=== PATIENT | female | born 1970 | race Caucasian/White ===

== ENCOUNTER 2021-03-04 18:20 | Emergency (ER) | payer MEDICARE, MEDICAID, SELFPAY ==
[2021-03-04 18:45] VITALS: BP 133/78; PULSE 84; RESP 20; TEMP 36.6; O2SAT 94
[2021-03-04] MEDS: SODIUM CHLORIDE 0.9% IV 1,000 ML 999 ML IV CONT (19:27)
[2021-03-04 19:31] LABS: Basophils Absolute Auto 0.15 K/mm3 (0.00-0.10); Basophils Percent Auto 1.9 % (0.0-1.0); Eosinophils Absolute Auto 0.24 K/mm3 (0.02-0.50); Eosinophils Percent Auto 3.1 % (1.0-6.0); Hematocrit 39.7 % (35.0-49.0); Hemoglobin 14.1 g/dL (12.0-15.0); Immature Granulocyte Absolute 0.02 K/mm3 (0.00-0.00); Immature Granulocyte Percent A 0.3 % (0.0-0.0); Lymphocytes Absolute Auto 3.04 K/mm3 (1.10-4.50); Lymphocytes Percent Auto 38.8 % (18.0-42.0); Mean Corpuscular HGB Conc 35.5 g/dL (32.0-36.0); Mean Corpuscular Hemoglobin 37.9 pg (27.0-31.0); Mean Corpuscular Volume 106.7 fL (78.0-102.0); Monocytes Absolute Auto 0.77 K/mm3 (0.10-0.90); Monocytes Percent Auto 9.8 % (2.0-11.0); Neutrophils Absolute Auto 3.6 K/mm3 (1.7-7.2); Neutrophils Percent Auto 46.1 % (50.0-70.0); Platelet Count Result 241 K/mm3 (150-420); Red Blood Count 3.72 M/mm3 (4.20-5.40); Red Cell Distribution Width 11.4 % (11.6-14.4); White Blood Count 7.8 K/mm3 (4.8-10.8)
[2021-03-04 19:36] LABS: Add Urine Microscopic? NO; Appearance Urine Clear (Clear); Bilirubin Urine Negative (Negative); Blood Urine Negative (Negative); Color Urine Light Yellow (Yellow); Glucose Urine UA Negative (Negative); Ketones Urine Negative (Negative); Leukocyte Esterase Ur Negative (Negative); Nitrate Urine Negative (Negative); Protein Urine Negative (Negative); Specific Grav Ur <= 1.005 (1.010-1.020); Urobilinogen Urine 0.2 mg/dL (0.2-1.0); pH Urine 5.5 (5.0-8.0)
[2021-03-04 19:40] LABS: Alanine Aminotransferase 110 U/L (14-59); Albumin Level 3.5 g/dL (3.4-5.0); Alkaline Phosphatase 124 U/L (46-116); Amphetamine Screen Urine Negative (Negative); Anion Gap 6 mmol/L (8-16); Aspartate Amino Transferase 173 U/L (15-37); Barbiturate Screen Urine Negative (Negative); Benzodiazepines Screen Urine Negative (Negative); Bilirubin,Total 0.3 mg/dL (0.00-1.00); Blood Urea Nitrogen 9 mg/dL (7-18); Cannabinoid Screen Urine Negative (Negative); Carbon Dioxide 29 mmol/L (21-32); Chloride 103 mmol/L (98-108); Cocaine Screen Urine Negative (Negative); Estimated CRCL calculation 79 ml/min; Estimated Glomerular Filt Rate > 60; Glucose 145 mg/dL (70-99); Methadone Screen Urine Negative (Negative); Opiate Screen Urine Positive (Negative); Osmolality Calculated 287 mOsm/kg (285-295); Phencyclidine Screen Urine Negative (Negative); Potassium 4.2 mmol/L (3.5-5.1); Sodium 138 mmol/L (136-145); Total Protein 6.9 g/dL (6.4-8.2)
--- NOTE | 2021-03-04 19:45 | ED.DIZZY ---
HPI - Dizziness General Chief Complaint: Unspecified Stated Complaint: low bp Source: patient Mode of arrival: ambulatory History of Present Illness HPI Narrative: This is a 50-year-old female that presents with sensation of having lower blood pressure, and has a mild headache with dizziness for the last couple of days with no nausea vomiting no chest pain no shortness of breath no fever or chills. Patient states that she does consume alcohol and has been using opioids. There is no dysuria no hematuria no abdominal pain no flank pain. MD elicited complaint: dizziness Onset (ago): day(s) Timing: gradual onset Severity: mild Description: sense of movement Related Data Home Medications Medication Instructions Recorded Confirmed albuterol sulfate 2 puff INHALATION BID 03/04/21 03/04/21 atenolol 50 mg PO DAILY 03/04/21 03/04/21 citalopram 20 mg PO DAILY 03/04/21 03/04/21 furosemide 40 mg PO DAILY 03/04/21 03/04/21 hydrocodone-acetaminophen 1 tablet PO BID 03/04/21 03/04/21 ipratropium-albuterol 3 ml INHALATION BID 03/04/21 03/04/21 levothyroxine 75 mcg PO DAILY 03/04/21 03/04/21 potassium chloride 20 meq PO DAILY 03/04/21 03/04/21 Allergies Allergy/AdvReac Type Severity Reaction Status Date / Time sumatriptan [From Imitrex] AdvReac Unknown Verified 03/04/21 19:22 Review of Systems Review of Systems: All systems reviewed & are unremarkable except as noted in HPI and below PMFSH Past Medical History Medical History Patient denies medical problems Exam Const: General: no acute distress and alert Orientation/consciousness: patient oriented x3 HENMT: Head: normal to inspection Eyes: Conjunctivae: conjunctivae normal Pupils: Equal, round and reactive pupils present Neck: Neck: normal visual inspection, no lymphadenopathy and no meningeal signs Chest: Chest palpation & inspection: normal inspection of the chest Resp: Effort & Inspection: normal respiratory effort Auscultation: clear to auscultation bilaterally GI: GI Palp: Yes Soft to palpation Percussion: Yes normal to percussion Urinary Catheter: Urinary Catheter: patent and draining and urine clear Back/Spine/Pelvis: Back: no CVA tenderness Skin: General skin exam: normal color Rashes: no rashes Neuro: General: patient oriented x3 and moves all extremities Course Course Emergency Course: reviewed labs with patient, advised to take Tylenol or Motrin for her headache, patient received IV fluids and advised follow-up with her primary care physician. Vital Signs Vital signs: Vital Signs Temperature 36.6 C 03/04/21 18:45 Pulse Rate 84 03/04/21 18:45 Respiratory Rate 20 03/04/21 18:45 Blood Pressure 133/78 03/04/21 18:45 Pulse Oximetry 94 03/04/21 18:45 Temperature 36.6 C 03/04/21 18:45 Pulse Rate 84 03/04/21 18:45 Respiratory Rate 20 03/04/21 18:45 Blood Pressure 133/78 03/04/21 18:45 Pulse Oximetry 94 03/04/21 18:45 MDM - Dizziness Lab Data Result diagrams: 03/04/21 19:23 03/04/21 19:23 Labs: Lab Results 03/04/21 03/04/21 03/04/21 Range/Units 19:23 19:23 19:23 WBC 7.8 (4.8-10.8) K/mm3 RBC 3.72 L (4.20-5.40) M/mm3 Hgb 14.1 (12.0-15.0) g/dL Hct 39.7 (35.0-49.0) % MCV 106.7 H (78.0-102.0) fL MCH 37.9 H (27.0-31.0) pg MCHC 35.5 (32.0-36.0) g/dL RDW 11.4 L (11.6-14.4) % Plt Count 241 (150-420) K/mm3 MPV 9.0 L (9.2-11.8) fl Immature Gran % (Auto) 0.3 H (0.0-0.0) % Neut % (Auto) 46.1 L (50.0-70.0) % Lymph % (Auto) 38.8 (18.0-42.0) % Osborne % (Auto) 9.8 (2.0-11.0) % Eos % (Auto) 3.1 (1.0-6.0) % Baso % (Auto) 1.9 H (0.0-1.0) % Lymph # (Auto) 3.04 (1.10-4.50) K/mm3 Osborne # (Auto) 0.77 (0.10-0.90) K/mm3 Eos # (Auto) 0.24 (0.02-0.50) K/mm3 Baso # (Auto) 0.15 H (0.00-0.10) K/mm3 Abs Immat Gran (auto) 0.02 H (0.00-0.00)
[2021-03-04 19:55] VITALS: BP 130/74; PULSE 78; RESP 18; TEMP 36.6; O2SAT 98
== END 2021-03-04 20:03 | disposition home or self-care (01) ==
PROVIDERS: Emergency Provider Emergency Medicine; PCP Internal Medicine
DX: E86.0 Dehydration (principal); Z79.899 Other long term (current) drug therapy
CPT/HCPCS: 36415; 80053; 80307; 81003; 85025; 96360; 99282; 99283; J7030

== ENCOUNTER 2021-03-07 13:15 | Emergency (ER) | payer MEDICARE, MEDICAID, SELFPAY ==
--- NOTE | 2021-03-07 13:31 | ED.WEAKNESS ---
HPI - Weakness General Chief complaint: Nausea/Vomiting/Diarrhea Stated complaint: droggy Source: patient and RN notes reviewed Mode of arrival: ambulatory Limitations: no limitations History of Present Illness HPI Narrative: patient was here 2 days ago and feeling similar. She received a L of IV fluids. She was recently diagnosed with bronchitis and was put on a Z-Lv. Now she has diarrhea. She has some generalized aches and pains. She has been vaccinated for COVID. Complaint: generalized weakness Onset (ago): day(s) (3) Duration: constant Location: generalized Migration: none Severity: moderate Associated symptoms: other (diarrhea) Related Data Home Medications Medication Instructions Recorded Confirmed albuterol sulfate 2 puff INHALATION BID 03/04/21 03/07/21 atenolol 50 mg PO DAILY 03/04/21 03/07/21 citalopram 20 mg PO DAILY 03/04/21 03/07/21 furosemide 40 mg PO DAILY 03/04/21 03/07/21 hydrocodone-acetaminophen 1 tablet PO BID 03/04/21 03/07/21 ipratropium-albuterol 3 ml INHALATION BID 03/04/21 03/07/21 levothyroxine 75 mcg PO DAILY 03/04/21 03/07/21 potassium chloride 20 meq PO DAILY 03/04/21 03/07/21 insulin glargine [Basaglar KwikPen 25 unit SUBCUT HS 03/07/21 03/07/21 U-100 Insulin] Allergies Allergy/AdvReac Type Severity Reaction Status Date / Time sumatriptan [From Imitrex] AdvReac Unknown Verified 03/07/21 14:15 Review of Systems Review of Systems: All systems reviewed & are unremarkable except as noted in HPI and below Constitutional: Constitutional: Denies chills and Denies fever(s) Respiratory: Respiratory: Denies dyspnea Gastrointestinal: Gastrointestinal: Denies nausea and Denies vomiting Musculoskeletal: Musculoskeletal: Denies muscle cramps PMFSH Past Medical History Medical History (Updated 03/07/21 @ 15:29 by Tae Kennedy MD) COPD (chronic obstructive pulmonary disease) Depression Hx of migraines Hypertension Hypothyroidism Type 2 diabetes mellitus Surgical History Surgical History (Updated 03/07/21 @ 14:17 by Tae Kennedy MD) History of tonsillectomy Social History Social History (Updated 03/07/21 @ 14:23 by Tae Kennedy MD) Alcohol intake: current Substance use: current Substance use type: opiates Exam Const: General: healthy appearing, no acute distress and intoxicated appearing Nutritional Appearance: well nourished Orientation/consciousness: patient oriented x3 Other: female nurse in room during examination. HENMT: Head: normal to inspection Ears: external ears normal Face and sinus: normal facial exam Mouth: Yes moist mucous membranes Eyes: Conjunctivae: conjunctivae normal Pupils: Equal, round and reactive pupils present EOM: EOMs intact bilaterally Neck: Neck: normal visual inspection and no lymphadenopathy Resp: Effort & Inspection: normal respiratory effort Auscultation: clear to auscultation bilaterally Cardio: Rate: regular rate Rhythm: regular rhythm GI: Inspection: normal to inspection GI Palp: No abdominal tenderness, Yes Soft to palpation, No Guarding due to palpation present (GI) and Yes Hepatomegaly present (7 cm below the costal margin) Auscultation: normal bowel sounds Back/Spine/Pelvis: Cervical Spine: cervical ROM normal Thoracic/Lumbar Spine: thoraco-lumbar ROM normal Skin: General skin exam: normal color Rashes: no rashes Neuro: General: patient oriented x3, moves all extremities, no meningeal signs and no focal motor deficits Speech: normal speech Gait exam (Neuro): Normal gait present Extrem: General: normal to inspection and no clubbing, cyanosis or edema Psych: Appearance: grossly normal and well kempt Mental Status: mental status grossly normal Affect: normal affect Attitude: cooperative Thought content: Yes Normal thought content present Course Course Emergency Course: Discussion with patient regarding her results. There is no evidence of dehydration. Her alcohol level is elevated.
[2021-03-07 13:55] VITALS: BP 112/75; PULSE 86; RESP 20; TEMP 36.7; O2SAT 95
[2021-03-07 14:45] LABS: Add Urine Microscopic? NO; Appearance Urine Clear (Clear); Basophils Absolute Auto 0.13 K/mm3 (0.00-0.10); Basophils Percent Auto 1.9 % (0.0-1.0); Bilirubin Urine Negative (Negative); Blood Urine Negative (Negative); Color Urine Light Yellow (Yellow); Eosinophils Absolute Auto 0.23 K/mm3 (0.02-0.50); Eosinophils Percent Auto 3.3 % (1.0-6.0); Glucose Urine UA Negative (Negative); Hematocrit 39.5 % (35.0-49.0); Hemoglobin 13.7 g/dL (12.0-15.0); Immature Granulocyte Absolute 0.01 K/mm3 (0.00-0.00); Immature Granulocyte Percent A 0.1 % (0.0-0.0); Ketones Urine Negative (Negative); Leukocyte Esterase Ur Negative LEU/UL (Negative); Lymphocytes Absolute Auto 2.76 K/mm3 (1.10-4.50); Lymphocytes Percent Auto 39.7 % (18.0-42.0); Mean Corpuscular HGB Conc 34.7 g/dL (32.0-36.0); Mean Corpuscular Volume 106.8 fL (78.0-102.0); Mean Platelet Volume 8.9 fl (9.2-11.8); Monocytes Absolute Auto 0.67 K/mm3 (0.10-0.90); Monocytes Percent Auto 9.6 % (2.0-11.0); Neutrophils Absolute Auto 3.2 K/mm3 (1.7-7.2); Neutrophils Percent Auto 45.4 % (50.0-70.0); Nitrate Urine Negative (Negative); Platelet Count Result 199 K/mm3 (150-420); Protein Urine Negative (Negative); Red Cell Distribution Width 11.6 % (11.6-14.4); Specific Grav Ur <= 1.005 (1.010-1.020); Urobilinogen Urine 0.2 mg/dL (0.2-1.0); pH Urine 5.5 (5.0-8.0)
[2021-03-07 15:02] LABS: CRP < 0.2 mg/dL (0.0-0.9); Ethanol 218 mg/dL (0-6)
[2021-03-07 15:09] LABS: Albumin Level 3.3 g/dL (3.4-5.0); Alkaline Phosphatase 150 U/L (46-116); Anion Gap 7 mmol/L (8-16); Bilirubin,Total 0.2 mg/dL (0.00-1.00); Blood Urea Nitrogen 8 mg/dL (7-18); Calcium 8.7 mg/dL (8.5-10.1); Carbon Dioxide 27 mmol/L (21-32); Chloride 106 mmol/L (98-108); Estimated CRCL calculation 75 ml/min; Estimated Glomerular Filt Rate > 60; Osmolality Calculated 290 mOsm/kg (285-295); Potassium 3.9 mmol/L (3.5-5.1); Sodium 140 mmol/L (136-145); Thyroid Stimulating Hormone 1.78 uIU/mL (0.36-3.74); Total Protein 6.5 g/dL (6.4-8.2)
[2021-03-07 15:14] LABS: Alanine Aminotransferase 166 U/L (14-59); Aspartate Amino Transferase 225 U/L (15-37)
[2021-03-07 15:15] LABS: Glucose 143 mg/dL (70-99)
[2021-03-07 16:08] VITALS: BP 126/79; PULSE 80; RESP 20; TEMP 36.7; O2SAT 94
== END 2021-03-07 15:45 | disposition home or self-care (01) ==
PROVIDERS: Emergency Provider Emergency Medicine; PCP Internal Medicine
DX: F10.10 Alcohol abuse, uncomplicated (principal); R16.0 Hepatomegaly, not elsewhere classified; J44.9 Chronic obstructive pulmonary disease, unspecified; I10 Essential (primary) hypertension; E03.9 Hypothyroidism, unspecified; E11.9 Type 2 diabetes mellitus without complications; Z79.899 Other long term (current) drug therapy
CPT/HCPCS: 36415; 80053; 80307; 81003; 84443; 85025; 86140; 99282; 99283

== ENCOUNTER 2024-08-06 02:57 | Emergency (ER) | payer MEDICARE, SELFPAY ==
[2024-08-06] VITALS (13 sets, daily range): BP systolic 168–177; BP diastolic 91–96; PULSE 116–141; RESP 18–25; TEMP 35.7–37.1; O2SAT 90–92
--- NOTE | ~2024-08-06 | XR_ITS ---
EXAMINATION: XR chest 1V portable 08/06/2024 03:21 INDICATION: Shortness of breath PROCEDURE: AP portable chest COMPARISON: No prior studies for comparison. FINDINGS: The lungs are clear. The cardiomediastinal silhouette is within normal limits. There are no pleural effusions. There is no pneumothorax suspected. IMPRESSION: 1: NO ACUTE CARDIOPULMONARY DISEASE. Reviewed, dictated and finalized at location A. ER EDUCATION INSTRUCTOR
--- OUTSIDE RECORDS SUMMARY | 2024-08-06 02:58 | XMS_ITS | Encounter Summary ---
Author Organization [facility] Address [address] [place] [address] Phone Care Team Providers Care Insurance Underwriting Assistant Name Role Phone Mukesh Rodriguez MD Primary Care Provider Kori Garcia RN Unavailable Neetu Emanuel RN Unavailable [phone] Erwin Estrada RN Unavailable [phone] Encounter Details Date Type Department Care Team (Late st Contact Info) Description 09/20/2017 Orders Only [facility] ProviderMeli MD [address] [place] [id number] Social History Tobacco Use Types Packs/Day Years Used Date Smoking Tobacco: Former Smokeless Tobacco: Never Alcohol Use Standard Drinks/Week Comments Yes 4 (1 standard drink = 0.6 oz pur e alcohol) Comments No Sex and Gender Information Value Date Recorded Sex Assigned at Not on file Legal Sex Female 8:[address] SPECIALIST Gender Identity Not on file Sexual Orientation Not on file documented as of this encounter Plan of Treatment Not on file documented as of this encounter Procedures Procedure Name Priority Date/Time Associated Diagnosis Comments DISCHARGE LABORATORY CUMULATIVE REPORT 09/20/2017 12:00 AM CDT documented in this encounter Results * DISCHARGE LABORATORY CUMULATIVE REPORT (09/20/2017 12:00 AM CDT) Narrative 09/20/2017 12:00 AM CDT Ordered by an unspecified provider. us Historical Provider LAB BLOOD ORDERABLES Heather l Result documented in this encounter Visit Diagnoses Not on filedocumented in this encounter Additional Health Concerns Infection Onset Date Last Indicated Resolved Time MRSA Comment:06/24/18 Upon review an amended report stated the culture report did not belong to this patient due to a clerical error at the physician office. ArtemioAnne Walkertalya IP Neck 09/20/17 09/20/2017 09/20/2017 06/24/2018 4:[address] COVID: Suspected 02/16/2021 02/16/2021 02/16/2021 12:04 PM CDT COVID: Suspected 05/24/2021 05/24/2021 05/24/2021 10:[address] SPECIALIST COVID: Suspected 09/10/2021 09/10/2021 09/10/2021 12:[address] SPECIALIST COVID: Suspected 09/28/2021 09/28/2021 09/28/2021 2:01 PM CDT COVID: Suspected 03/03/2022 03/03/2022 03/03/2022 10:27 AM CDT COVID19 03/03/2022 03/03/2022 03/13/2022 3:05 AM CDT COVID: Recovered Comment:Added based on recent COVID infection. 03/13/2022 03/14/2022 07/11/2022 3:[address] documented as of this encounter Care Teams Insurance Underwriting Assistant Relationship Specialty Start Date End Date Mukesh Rodriguez MD PCP - General 10/05/16 Kori Garcia RN [address] [place] [address] Car Tracer 06/27/18 07/31/18 Neetu Emanuel RN [address] [place], [place] [id number] Car Tracer 05/03/21 05/28/21 Erwin Estrada RN [address] [place] [address] [address] [place] [address] Car Tracer 05/29/21 08/02/21 documented as of this encounter
--- OUTSIDE RECORDS SUMMARY | 2024-08-06 02:58 | XMS_ITS | Referral Summary ---
Author Organization [facility] Address [address] [place] [id number] Care Team Providers Care Patient Service Associate Name Role Phone Teo Joyner MD Primary Care Provider Allergies Active Allergy Reactions Criticality Noted Date Comments Sumatriptan Anaphylaxis,Other (S ee comments) High Reaction: Diff breathing, , Reaction: throat swelling, can't breathe, , Reaction: throat swelling, can't breathe, Medications ipratropium-albut Scotty (DUO-NEB) 0.5-2.5 mg/3 mL nebulizer solutionIndicatio ns:Chronic Obstructive Pulmonary Disease with Bronchospasms Take 3 mL by nebulization 4 (four) times a day as needed for wheezing or shortness of breath Dx of COPD J44.9 360 mL 11 05/29/20 21 Active losartan (COZAAR) 100 mg tablet Take 1 tablet (100 mg total) by mouth daily To lower blood pressure 90 tablet 3 09/20/19 22 Active naloxone (NARCAN) 4 mg/actuation spray,non-aerosol Administer 1 spray into affected nostril(s) as needed for opioid reversal or respiratory depression Call 911. Administer a single spray in one nostril. Repeat every 3 minutes as needed if no or minimal response. 1 each 12/20/19 23 Active blood glucose diagnostic (True Metrix Glucose Test Strip) stripIndications: Controlled type 2 diabetes mellitus without complication, unspecified whether long filler cigar roller machine insulin use (HCC) USE 1 DAILY 50 strip 2 04/18/20 23 Active albuterol HFA (PROVENTIL HFA,VENTOLIN HFA,PROAIR HFA) 90 mcg/actuation inhaler INHALE 2 PUFFS EVERY 6 HOURS NEEDED FOR WHEEZING 25.5 g 3 08/08/19 24 Active atenoloL (TENORMIN) 50 mg tablet TAKE ONE TABLET BY MOUTH DAILY 90 tablet 3 01/06/20 24 Active triamcinolone (KENALOG) 0.1 % creamIndications: Rash and nonspecific skin eruption Apply topically 3 (three) times a day for 10 days 28.4 g 01/06/20 24 Active mupirocin (BACTROBAN) 2 % ointment Apply topically 3 (three) times a day To sores on toes 22 g 1 01/20/20 24 Active ondansetron (ZOFRAN) 4 mg tablet TAKE ONE TABLET BY MOUTH EVERY EIGHT HOURS NEEDED FOR NAUSEA OR VOMITING 20 tablet 3 02/18/20 24 Active LANTUS 100 unit/mL (3 mL) pen for injection INJECT 25 UNITS UNDER THE SKIN DAILY 45 mL 4 02/18/20 24 Active PARoxetine (PAXIL) 20 mg tablet Take 1 tablet (20 mg total) by mouth every morning Note higher dose 90 tablet 3 04/07/20 24 Active furosemide (LASIX) 40 mg tablet Take 1 tablet (40 mg total) by mouth daily 90 tablet 3 04/07/20 24 Active potassium chloride ER 20 mEq CR tablet Take 1 tablet (20 mEq total) by mouth daily 90 tablet 3 04/07/20 24 Active levothyroxine (SYNTHROID) 75 mcg tablet Take 1 tablet (75 mcg total) by mouth daily 100 tablet 3 04/07/20 Active pen needle, diabetic (TRUEplus Pen Needle) 31 gauge x 5/16 needle Inject 1 pen needle under the skin daily 100 each 3 04/07/20 Active LORazepam (ATIVAN) 0.5 mg tablet Take 1 tablet (0.5 mg total) by mouth 2 (two) times a day as needed for anxiety Do not take w/ hydrocodone 10 tablet 04/07/20 Active HYDROcodone-aceta minophen (NORCO) 10-325 mg per tabletIndications :Pain Take 1 tablet by mouth every 6 (six) hours as needed for pain 100 tablet 07/02/20 24 025 Active Active Problems Problem Noted Date Diagnosed Date Lumbar spine pain 03/24/2022 Medicare annual wellness visit, subsequent 03/23 History of 2019 novel coronavirus disease (COVID -19) 03/23/2022 Tachycardia 05/25/2021 Acute exacerbation of chroni c obstructive pulmonary disease (COPD) 05/24/2021 Assessment & Plan (06/07/2021 10:38 AM DISTRIBUTION LINEMAN): Recently hospitalized Symptoms improved. See hospitalization assessment above Menopause 03/29/2021 Positive colorectal cancer s creening using DNA-based stool test 03/29/2021 Overview (03/29/2021): Added automatically from request for surgery [id number] History of colonic polyps 03/29/2021 Overview (03/29/2021): Added automatically from request for surgery [id number] Medicare annual wellness visit, subsequent 02/03 Epistaxis 10/29/2019 Assessment & Plan (10/29/2019 10:30 AM CDT): Augmentin with a meal twice daily for 7 days Nasal saline spray (Simply saline, Little Remedies, [place], [place]) 2 second sprays or 2 squeezes into each nostril while looking down over the sink, do not need to sniff in 3-4 times per day Humidifier next to bed Discussed holding the soft portion of the nose with head down for 10 minutes with any nosebleeding Nasal septal perforation 10/29/2019 Assessment & Plan (10/29/2019 2:26 PM CDT): Augmentin with a meal twice daily for 7 days Nasal saline spray (Simply saline, Little Remedies, [place], [place]) 2 second sprays or 2 squeezes into each nostril while looking down over the sink, do not need to sniff in 3-4 times per day Humidifier next to bed Hypertension associated with diabetes 09/16/2019 Moderate episode of recurrent major depressive d isorder 09/16/2019 Type 2 diabetes mellitus wit hout complication, with long-term current use of insulin ([facility]) 09/15/2019 Body mass index (BMI) of 21.0 to 21.9 in adult 0 09/20/2017 Assessment & Plan (09/20/2017 1:47 PM CDT): Recommended patient to continue to increase heart healthy diet with adequate fruits, vegetables, and plenty of water along with mild-moderate daily exercise as tolerated. Chronic obstructive pulmonary disease 09/15/2015 Overview (10/11/2016): COPD Assessment & Plan (09/20/2017 1:49 PM CDT): Covering for COPD exacerbation office today with doxycycline 100 mg twice daily for full 10 day course along with tapering corticosteroids for full 10 days. Nebulizer treatments recommended 3 times a day for the next few days then p.r.n. thereafter and Depo-Medrol injection was administered office today for quicker alleviation symptoms as well. Follow-up in a week and certainly sooner there is any concern regarding worsening or little improvement symptoms at that time we can consider obtaining chest x-ray looking in the other etiologies causing symptoms Alcohol-induced chronic pancreatitis (CMS/HCC) 0 08/02/2015 Overview (10/11/2016): Chronic pancreatitis due to chronic alcoholism Assessment & Plan (07/10/2017 12:47 PM DISTRIBUTION LINEMAN): Acute on chronic pancreatitis. Keep npo until pain is better, continue with pain control and ivf's Thiamine and monitor lft's (possible component of alcoholic hepatitis but normal bilirubin) Patient was told that she should not drink at all and consider AA Tobacco use disorder 11/21/2013 Overview (10/11/2016): TOBACCO USE DISORDER Asthma 11/21/2013 Overview (10/11/2016): ASTHMA NOS Depression 11/21/2013 Overview (10/12/2016): DEPRESSIVE DISORDER NEC Hypothyroidism 12/04/2012 Overview (10/11/2016): Hypothyroidism Pancreatitis 07/08/2012 Overview (06/29/2020): Pancreatitis Transaminitis Alcoholic liver disease Alcohol withdrawal syndrome without complication (CMS/HCC) Resolved Problems Problem Noted Date Diagnosed Date Resolved Date Hospitalization within last 30 days 05/31/2021 12/19/2022 Assessment & Plan (05/31/2021 2:49 PM DISTRIBUTION LINEMAN): Hospitalized for acute copd exacerbation Med rec reviewed Completed cefdinir and prednisone HRS kit at home F/u prn Colon polyp 04/19/2021 05/18/2021 Overview (04/19/2021): Added automatically from request for surgery [id number] Acute recurrent maxillary sinusitis 10/29/2019 12/19/2022 Assessment & Plan (10/29/2019 2:26 PM CDT): Augmentin with a meal twice daily for 7 days Nasal saline spray (Simply saline, Little Remedies, [place], [place]) 2 second sprays or 2 squeezes into each nostril while looking down over the sink, do not need to sniff in 3-4 times per day Humidifier next to bed Alcohol-induced acute pancre atitis without infection or necrosis 07/10/2017 03/17/2019 Assessment & Plan (07/10/2017 12:37 PM DISTRIBUTION LINEMAN): Recurrent, most likely again induced by alcohol. Supportive care Advance diet slowly when symptoms improve Nausea & vomiting 07/10/2017 01/28/2018 Assessment & Plan (07/10/2017 12:37 PM DISTRIBUTION LINEMAN): Antiemetics as needed Flu-like symptoms 07/10/2017 03/17/2019 Assessment & Plan (07/10/2017 12:46 PM DISTRIBUTION LINEMAN): Influenza negative but with joint pain, generalized pain, cough besides adbominal pain Acute bronchitis 07/08/2017 07/31/2017 Bronchospasm 07/08/2017 07/31/2017 Acute maxillary sinusitis 07/08/2017 Subcutaneous emphysema (CMS/HCC) 09/15/2015 07/31/2017 Overview (10/11/2016): Subcutaneous emphysema Impaired fasting glucose 08/02/2015 Overview (10/11/2016): Impaired fasting glycaemia Migraine 01/19/2014 09/15/2019 Overview (10/11/2016): MIGRNE UNSP WO NTRC MGRN Irritable bowel syndrome 12/02/2009 Overview (10/11/2016): Irritable bowel syndrome Immunizations Name Administration Dates Next Due Influenza, Quadrivalent, Vanessa l Culture-based MDCK, Preservative Free, Antibiotic Free, Intramuscular 05/24/2022 Influenza, Quadrivalent, Spl it, Preservative Free, Intradermal 08/02/2016 Influenza, Quadrivalent, Spl it, Preservative Free, Intramuscular 04/02/2023,04/20/2021,05/18/2020,05/09,04/19/2017,05/25/2014 Influenza, Split 07/29/2013,07/18/2012 Influenza, Trivalent, IM (MDV) 05/25/2014,2013 Influenza, Trivalent, Preser vative Free, Intramuscular 04/07/2024 Influenza, Unspecified 03/29/2021(Deferr ed: Patient Refused),06/08/2019,08/02/2016, 014 Pfizer SARS-CoV-2 Monovalent Vaccination (12+ Yrs) PURPLE 01/31/2021,01/30/2021,11/15/2020 Pneumococcal Conjugate PCV 13 04/30/2018 Tdap 10/22/2017 Social History Tobacco Use Types Packs/Day Years Used Date Smoking Tobacco: Every Day Cigarettes 0.5 32 Smokeless Tobacco: Never Tobacco Cessation:Ready to Q uit: Not Asked; Counseling Given: Not Answered Alcohol Use Standard Drinks/Week Comments Yes 4 (1 standard drink = 0.6 oz pur e alcohol) Social Connection and Isolat ion Panel [NHANES] Answer Date Recorded In a typical week, how many times do you talk on the phone with family, friends, or neighbors? More than three times a week 05/26/2021 How often do you get togethe r with friends or relatives? Once a week 05/26/2021 How often do you attend [facility] or nondenominational services? Never 05/26/2021 Do you belong to any clubs o r organizations such as yazidism groups, unions, fraternal or athletic groups, or school groups? No 05/26/2021 How often do you attend meet ings of the clubs or organizations you belong to? Never 05/26/2021 Are you , , di vorced, , never , or living with a partner? 05/26/2021 AUDIT-C Answer Date Recorded Q1: How often do you have a drink containing alcohol? 4 or more times a week 04/07/2024 Q2: How many drinks containi ng alcohol do you have on a typical day when you are drinking? 1 or 2 Q3: How often do you have si x or more drinks on one occasion? Never 04/07/2024 Overall Financial Resource Strain (CARDIA) Answe r Date Recorded How hard is it for you to pa y for the very basics like food, housing, medical care, and heating? Not hard at all 05/26/2021 PHQ-2 Answer Date Recorded PHQ-2 Total Score (If total score is 3 or more points, staff should administer the PHQ-9) 0 04/07/2024 Hunger Vital Sign Answer Date Recorded Within the past 12 months, y ou worried that your food would run out before you got the money to buy more. Never true 05/26/20 21 Within the past 12 months, t he food you bought just didn't last and you didn't have money to get more. Never true 05/26/2021 PRAPARE - Transportation Answer Date Re corded In the past 12 months, has l ack of transportation kept you from medical appointments or from getting medications? No 05/08 In the past 12 months, has l ack of transportation kept you from meetings, work, or from getting things needed for daily living? No 05/26/2021 Housing Stability Vital Sign Answer Kb e Recorded In the last 12 months, was t here a time when you were not able to pay the mortgage or rent on time? No 05/29/2021 In the last 12 months, how many places have you lived? 1 05/29/2021 In the last 12 months, was t here a time when you did not have a steady place to sleep or slept in a nursing home (including now)? No 05/29/2021 Comments No Sex and Gender Information Value Date Recorded Sex Assigned at Not on file Legal Sex Female 8:43 AM DISTRIBUTION LINEMAN Gender Identity Not on file Sexual Orientation Not on file Last Filed Vital Signs Vital Sign Reading Time Taken Comments Blood Pressure 142/82 04/07/2024 11:26 AM CDT Pulse 55 04/07/2024 11:26 AM CDT Temperature 36.3 ??C (97.3 ??F) 04/07/2024 11:26 AM C DT Respiratory Rate 18 01/06/2024 1:59 PM CDT Oxygen Saturation 95% 04/07/2024 11:26 AM CDT Inhaled Oxygen Concentration - - Weight 54.4 kg (120 lb) 04/07/2024 11:26 AM CDT Height 157.5 cm (5' 2 ) 04/07/2024 11:26 AM CDT Body Mass Index 21.95 04/07/2024 11:26 AM CDT Plan of Treatment Not on file Goals Goal Patient Goal Type Associated Problems Recent Progress Patient-Stated? Author Diabetes Goal - Patient verbalizes knowledge and ability to manage diabetes ACO Care Management On track( 018 1:06 PM DISTRIBUTION LINEMAN) No Kori Garcia, RN Note: Problem: Knowledge deficit - Diabetes Interventions: - Provide educational materials specific to patient needs. - Follow up within 1-2 weeks of mailing to review materials and ensure patient understands information provided. Procedures Procedure Name Priority Date/Time Associated Diagnosis Comments EGFR Routine 04/01/2024 12:01 PM CDT Hypertension associated with diabetes (HCC) HEMOGLOBIN A1C Routine 04/01/2024 12:01 PM CDT Hypertension associated with diabetes (HCC) LIPID PANEL Routine 04/01/2024 12:01 PM CDT Hypertension associated with diabetes (HCC) ALBUMIN CREATININE RATIO, URINE Routine 04/01/2024 12:01 PM CDT Hypertension associated with diabetes (HCC) DIAGNOSTIC MAMMOGRAM BILATERAL W MIKE Schedule Routine, Read Routine (OP Routine) 09/06/2023 12:30 PM DISTRIBUTION LINEMAN Abnormal mammogram COLONOSCOPY 10/17/2021 9:52 AM CDT THINPREP PAP Routine 04/21/2021 HM DIABETES FOOT EXAM Routine 08/01/2018 HEPATITIS PANEL, ACUTE STAT 06/22/2018 4:48 AM DISTRIBUTION LINEMAN from Last 3 Months or Most Recently Relevant to Health Maintenance Results * eGFR (04/01/2024 12:01 PM CDT) eGFR >90 >=60 mL/min/1. 73 m2 Comment: Interpretive Data Reference Interval Normal ?>/= 90 mL/min/1.73m2 Mildly decreased* ? 60 - 89 mL/min/1.73m2 Mildly to moderately decreased ?45 - 59 mL/min/1.73m2 Moderately to severely decreased ??30 - 44 mL/min/1.73m2 Severely decreased ?15 - 29 mL/min/1.73m2 Kidney Failure ?< 15 ??mL/min/1.73m2 *Relative to young adult level Estimated glomerular filtration rate is determined by the 2020 CKD-EPI equation recommended by the National Kidney Foundation (A Unifying Approach to GFR Estimation: Recommendations of the NKF-ASK Task Force on Reassessing the Inclusion of Race in Diagnosing Kidney Disease, JASN 2020). The CKD-EPI equation should not be used for patients with unstable renal function and has not been validated in children and those over 70. Current interpretive data was last reviewed 2021. Testing performed by: [facility], [address] [place] [address], [place]., [address] Blood 04/01/2024 12:0 1 PM CDT 04/01/2024 6:26 PM CDT Teo Joyner MD LAB BLOOD ORDERABLES Fi nal Result Performing Organization Address [facility] Co de Phone Number EMELY CAPPS (ESTHER) 1 [facility] [employer] [place] [address] * Albumin Creatinine Ratio, Urine (04/01/2024 12:01 PM CDT) Albumin Ur <12.0 mg/L Comment: Interpretive Data No reference range established. Current interpretive data was last revised 2018. Testing performed by: [facility], [address] [place] [address]., [id number] Creatinine Ur 33.4 mg/dL EMELY CAPPS (ESTHER) Comment: Interpretive Data No reference range established. Current interpretive data was last revised 2018. Testing performed by: [facility], [address] [place] [address]., [address] Albumin Creatinine Ratio, Ur See Comment 1 - 29 EMELY CAPPS (ESTHER) Comment: Unable to calculate Testing performed by: [facility], [address] [place] [address]., [id number] Urine 04/01/2024 12:0 1 PM CDT 04/01/2024 6:20 PM CDT Teo Joyner MD LAB URINE ORDERABLES Fi nal Result Performing Organization Address [facility] Co de Phone Number EMELY CAPPS (ESTHER) 1 [facility] [place] [address] * (ABNORMAL) Hemoglobin A1c (04/01/2024 12:01 PM CDT) Hgb A1C 5.8(H) 4.0 - 5.6 % Comment:Testing performed by : [address] [address] Estimated Average Glucose 120 mg/dL EMELY CAPPS (ESTHER) Comment: The ADA recommends reporting an estimated Average Glucose (eAG) with all Hemoglobin A1c results using the equation derived from a study of 507 normal and diabetic adults. ??Minority populations were underrepresented and children were not included. ?? (Diabetes Care 31:5892-6349, 2008). ??The eAG is not equivalent to a fasting glucose. Testing performed by: [facility], [address] [place] [address]., [address] Blood 04/01/2024 12:0 1 PM CDT 04/01/2024 6:20 PM CDT us Teo Joyner MD LAB BLOOD ORDERABLES Fi nal Result EMELY CAPPS (FOLEY) 1 [facility] Department [place] [address] * Lipid panel (04/01/2024 12:01 PM CDT) Cholesterol 165 30 - 199 mg/dL Comment: Interpretive Data Ages < or = 19 years ??Acceptable: ? <170 mg/dL ??Borderline high: ??170-199 mg/dL ??High: ? >or= 200 mg/dL Ages > or = 20 years ??Desirable: ?<200 mg/dL ??Borderline high: ??200-239 mg/dL ??High: ? >or= 240 mg/dL Literature References: 1. Expert Panel on Integrated Guidelines for Cardiovascular Health and Risk Reduction in Children and Adolescents. Pediatrics 2011;128:S213 2. NCEP Expert Panel. Circulation 2004;110:227 Current Interpretive Data was last revised on 2018. Testing performed by: [facility], [address] [place] [address], [place]., [address] Triglycerides 124 <=149 mg/dL EMELY CAPPS (ESTHER) Comment: Interpretive Data Ages < or = 9 years ??Acceptable: ? <75 mg/dL ??Borderline high: ??75-99 mg/dL ??High: ? >or= 100 mg/dL Ages 10 to 20 years ??Acceptable: ? <90 mg/dL ??Borderline high: ??90-129 mg/dL ??High: ? >or= 130 mg/dL Ages > or = 20 years ??Desirable: ?<150 mg/dL ??Borderline high: ??150-199 mg/dL ??High: ? 200-499 mg/dL ?Very high: ?? >or= 499 mg/dL Literature References: 1. Expert Panel on Integrated Guidelines for Cardiovascular Health and Risk Reduction in Children and Adolescents. Pediatrics 2011;128:S213 2. NCEP Expert Panel. Circulation 2004;110:227 Current Interpretive Data was last revised on 2018. Testing performed by: [facility], [address] [place] [address]., [address] HDL 92 >=40 mg/dL EMELY GALLO) Comment: Interpretive Data Ages < or = 19 years ??Acceptable: ? >45 mg/dL ??Borderline low: ?? 40-45 mg/dL ??Low: ? <40 mg/dL Ages > or = 20 years ??Desirable: ?>or= 60 mg/dL ??Low: ? <40 mg/dL Literature References: 1. Expert Panel on Integrated Guidelines for Cardiovascular Health and Risk Reduction in Children and Adolescents. Pediatrics 2011;128:S213 2. NCEP Expert Panel. Circulation 2004;110:227 Current Interpretive Data was last revised on 2018. Testing performed by: [facility], [address] [place] [address], [place]., [address] LDL, calculated 52 <=129 mg/dL EMELY CAPPS (ESTHER) Comment: Interpretive Data Ages < or = 19 years ??Acceptable: ? <110 mg/dL ??Borderline high: ??110-129 mg/dL ??High: ?>or= 130 mg/dL Ages > or = 20 years ??Optimal: ? <100 mg/dL ??Near optimal: ?100-129 mg/dL ??Borderline high: ?? 130-159 mg/dL ??High: ?>160 mg/dL Calculated using the Braydon LDL-C estimating equation. This equation was implemented on 2024. Prior to this date LDL-C was estimated using the Friedewald equation. Literature References: 1. Expert Panel on Integrated Guidelines for Cardiovascular Health and Risk Reduction in Children and Adolescents. Pediatrics 2011;128:S213 2. NCEP Expert Panel. Circulation 2004;110:227 3. Braydon Rojas et al. PIPO Cardiol. 2020 November 05;5(5):540-548. doi: 10.1001/jamacardio.2020.0013 Current Interpretive Data was last revised on 2024. Testing performed by: [address] [address] Non-HDL Cholesterol 73 mg/dL EMELY CAPPS (ESTHER) Comment: Interpretive Data Ages < or = 19 years ??Acceptable: ?<120 mg/dL ??Borderline high: ??120-144 mg/dL ??High: ?>145 mg/dL Ages > or = 20 years ??When triglycerides are >200 mg/dL, Non-HDL cholesterol is a secondary target of ? therapy with treatment goals that are 30 mg/dL greater than the LDL cholesterol target. ? Literature References: 1. Expert Panel on Integrated Guidelines for Cardiovascular Health and Risk Reduction in Children and Adolescents. Pediatrics 2011;128:S213 2. NCEP Expert Panel. Circulation 2004;110:227 Current Interpretive Data was last revised on 2018. Testing performed by: [facility], [address] [place] [address]., [address] Chol/HDL ratio 2 ITALIA CAPPS (ESTHER) Comment:Testing performed by : [address] [address] Blood 04/01/2024 12:0 1 PM CDT 04/01/2024 6:20 PM CDT Narrative EMELY CAPPS (ESTHER) - 04/01/2024 7:02 PM CDT Has the patient been fasting for 8 hours or more?->Yes us Teo Joyner MD LAB BLOOD ORDERABLES Fi nal Result EMELY CAPPS ESTHER) 1 [facility] Department [place] [address] * Diagnostic Mammogram Bilateral W Mike (09/06/2023 12:30 PM DISTRIBUTION LINEMAN) Anatomical Region Laterality Modality Breast Bilateral Mammography 09/06/2023 2:10 PM DISTRIBUTION LINEMAN Impressions 09/06/2023 2:10 PM DISTRIBUTION LINEMAN 1. ??The marker calcifications of concern in the right breast have not suspiciously changed over the past 2 years, and are now considered benign. ??There are no new suspicious findings in either breast. Continued monthly breast self-examination is recommended, and return to annual screening mammography schedule. BI-RADS: 2 - Benign. The patient was notified of the results and recommendations on the time of the examination. Electronically signed by: TERI Montgomery 09/06/2023 2:10 PM DISTRIBUTION LINEMAN EXAMINATION: DIAGNOSTIC MAMMOGRAM BILATERAL W MIKE ORDERING HEALTHCARE PROVIDER: TEO JOYNER HISTORY: 52-year-old woman comes in today for follow-up of probably benign findings in the right breast, an routine screening of the left breast.. COMPARISON: ??Diagnostic mammogram dated 10/31/2021. ??Screening mammogram dated 10/13/2021. TECHNIQUE: CC and MLO views of both breasts were obtained with digital technique using digital breast tomosynthesis with C view. Additional full field 2-D digital mammograms of the right breast were obtained in the spot magnification CC and spot magnification LM projections. FINDINGS: The breast tissue is heterogeneously dense, which may obscure small masses. There are small groups of microcalcifications in both breasts, including the 4 mm group of concern at approximately the 9 o'clock position of the right breast anterior depth. ??These appear mostly amorphous, and demonstrate no associated mass or architectural distortion. ??Given the lack of interval loom changer the past 2 years, these are now considered benign. ??There is no new suspicious finding in either breast. us Teo Joyner MD IMG MAMMO PROCEDURES Fi nal Result * COLONOSCOPY (10/17/2021 9:52 AM CDT) Anatomical Region Laterality Modality Other Narrative Procedure Note Kartik Fowler MD - 10/17/2021 9:52 AM CDT [facility] Patient Name: Jimmy Xavier Procedure Date: 10/17/2021 9:52 AM Date of : 1970 Admit Type: Outpatient Age: 51 Gender: Female Attending MD: Kartik Fowler M.D. Room: [facility] ENDOSCOPY ROOM 2 Note Status: Finalized Patient Profile: Refer to note in patient chart for documentation of history and physical. Procedure: Colonoscopy Indications: High risk colon cancer surveillance: Personalhistory of colonic polyps, Last colonoscopy: April 2021 Referring MD: Teo Joyner M.D. Providers: Kartik Fowler M.D. Impression: - Hemorrhoids found on perianal exam. - Patent functional end-to-end ileo-colonic anastomosis, characterized by healthy appearingmucosa. - One 10 mm polyp in the transverse colon, removed with a hot snare. Resected and retrieved. - One 5 mm polyp in the transverse colon, removedwith a cold snare. Resected and retrieved. - The examination was otherwise normal. Recommendation: - Discharge patient to home. - Resume previous diet. - Continue present medications. - Await pathology results. - Repeat colonoscopy in 3 years for surveillance. - Return to primary care physician as previously scheduled. Medicines: Propofol per Anesthesia Complications: No immediate complications. Estimated Blood Loss: Estimated blood loss: none. Procedure: Pre-Anesthesia Assessment: - This assessment was completed [Time ofAssessment] prior to the administration of sedation. The benefits, risks and alternatives of theprocedure and sedation were discussed and informed consentwas obtained. All questions were answered. Please referto the signed informed consent document in the medical record. The bowel preparation used was Miralax and bisacodyl tablets via single dose instruction. The scope was passed under direct vision. TheColonoscope [id number] was introduced through the anus and advanced to the the ileocolonic anastomosis.The colonoscopy was performed without difficulty. The patient tolerated the procedure well. The qualityof the bowel preparation was good. The terminal ileumand the rectum were photographed. Findings: Hemorrhoids were found on perianal exam. There was evidence of a prior functional end-to-end ileo-colonic anastomosis at the hepatic flexure. This was patent and was characterized by healthy appearing mucosa. The anastomosis wastraversed. A 10 mm polyp was found in the transverse colon. The polyp wassessile. The polyp was removed with a hot snare. Resection and retrieval were complete. Verification of patient identification for the specimen was done by the physician and nurse using the patient's name and birthdate. Estimated blood loss was minimal. A 5 mm polyp was found in the transverse colon. The polyp wassessile. The polyp was removed with a cold snare. Resection and retrieval were complete. Verification of patient identification for the specimen was done by the physician and nurse using the patient's name and birthdate. Estimated blood loss was minimal. The exam was otherwise without abnormality. Electronically signed by Kartik Fowler M.D. Kartik Fowler M.D. 10/17/2021 11:25:47 AM Number of Addenda: 0 Note Initiated On: 10/17/2021 9:52 AM Procedure Code(s): --- Professional --- 03537, Colonoscopy, flexible; with removal of tumor(s), polyp(s), or other lesion(s) by snare technique Diagnosis Code(s): --- Professional --- D12.3, Benign neoplasm of transverse colon (hepatic flexure orsplenic flexure) Z98.0, Intestinal bypass and anastomosis status K64.9, Unspecified hemorrhoids Z86.010, Personal history of colonic polyps CPT copyright 2020 [employer]. All rights reserved. The codes documented in this report are preliminary and upon classification and treatment director reviewmay be revised to meet current compliance requirements. Recognized by the [employer] for promoting quality in endoscopy Kartik Fowler MD ENDOSCOPY PROCEDURES Final Re sult * ThinPrep Pap (04/21/2021) 04/21/2021 Historical Provider LAB PATHOLOGY ORDERABLES Final Result * DIABETES FOOT EXAM (08/01/2018) Diabetic Foot Exam Normal Historical Provider HEALTH MAINTENANCE Final Result * Hepatitis panel, acute (06/22/2018 4:48 AM DISTRIBUTION LINEMAN) Hep A IgM Negative Negative [facility] (ESTHER) Comment:Testing performed by : [facility], [address] [place] [address]., [id number] Hep B core IgM Negative Negative [facility] (ESTHER) Comment:Testing performed by : [facility], [address] [place] [address]., [id number] Hep C Ab Negative Negative [facility] (ESTHER) Comment:Testing performed by : [address] [id number] HepBsAg Negative Negative [facility] (ESTHER) Comment:Testing performed by : [facility], [address] [place] [address]., [id number] Blood specimen (specimen) 06/22/2018 4:48 AM DISTRIBUTION LINEMAN 06/23/2018 1:43 PM DISTRIBUTION LINEMAN Narrative EMELY CAPPS (ESTHER) - 06/23/2018 3:11 PM DISTRIBUTION LINEMAN us Anayeli Mcdaniel MD LAB MICROBIOLOGY - GENERAL ORDERABLES Final Result EMELY CAPPS (ESTHER) 1 [facility] Department [place] [address] from Last 3 Months or Most Recently Relevant to Health Maintenance [place] [address] [facility] MEDICARE MEDICARE Advance Directives For more information, please contact: [phone] * Full Code (Latest Code Status on File) Date Activated Date Inactivated Comments 10/17/2021 10:05 AM 10/17/2021 4:36 PM * Full Code Date Activated Date Inactivated Comments 05/25/2021 1:26 AM 05/27/2021 7:47 PM * Full Code Date Activated Date Inactivated Comments 04/10/2021 9:22 AM 04/10/2021 4:12 PM * Full Code Date Activated Date Inactivated Comments 04/10/2021 9:22 AM 04/10/2021 9:22 AM * Full Code Date Activated Date Inactivated Comments 06/22/2018 4:06 AM 06/26/2018 12:49 PM Care Teams Patient Service Associate Relationship Specialty Start Date End Date Teo Joyner MD PCP - General 10/05/16
--- OUTSIDE RECORDS SUMMARY | 2024-08-06 02:59 | XMS_ITS | Clinical Summary ---
Author Organization [facility] Address [address] [place] [id number] Care Team Providers Care Transporter Driver Name Role Phone Teo Joyner MD Primary [...] diabetes mellitus without complication, unspecified whether long term care pharmacist insulin use (HCC) USE 1 DAILY 50 [...] 05/24/2021 Assessment & Plan (06/07/2021 10:38 AM SUPERVISOR PREPRESS): Recently hospitalized Symptoms improved. See hospitalization assessment above Menopause 03/29/2021 Positive colorectal cancer s creening using DNA-based stool test 03/29/2021 Overview (03/29/2021): Added automatically from request for surgery [id number] History of colonic polyps 03/29/2021 Overview (03/29/2021): Added automatically from request for surgery [id number] Medicare annual wellness visit, subsequent 02/03 Epistaxis 10/29/2019 Assessment & Plan (10/29/2019 10:30 AM CDT): Augmentin with a meal twice daily for 7 days Nasal saline spray (Simply saline, Little Remedies, Quail Ridge, Pesotum) 2 second sprays or 2 squeezes into [...] Nasal saline spray (Simply saline, Little Remedies, Quail [place], Pesotum) 2 second sprays or 2 squeezes into each nostril while looking down over the sink, do not need to sniff in 3-4 times per day Humidifier next to bed Hypertension associated with diabetes 09/16/2019 Moderate episode of recurrent major depressive d isorder 09/16/2019 Type 2 diabetes mellitus wit hout complication, with long-term current use of insulin ([facility]) 09/15/2019 Body mass index (BMI) of 21.0 [...] alcoholism Assessment & Plan (07/10/2017 12:47 PM SUPERVISOR PREPRESS): Acute on chronic pancreatitis. Keep npo until [...] 12/19/2022 Assessment & Plan (05/31/2021 2:49 PM SUPERVISOR PREPRESS): Hospitalized for acute copd exacerbation Med rec reviewed Completed cefdinir and prednisone HRS kit at home F/u prn Colon polyp 04/19/2021 05/18/2021 Overview (04/19/2021): Added automatically from request for surgery [id number] Acute recurrent maxillary sinusitis 10/29/2019 12/19/2022 Assessment & Plan (10/29/2019 2:26 PM CDT): Augmentin with a meal twice daily for 7 days Nasal saline spray (Simply saline, Little Remedies, Quail [place], Pesotum) 2 second sprays or 2 squeezes into each nostril while looking down over the sink, do not need to sniff in 3-4 times per day Humidifier next to bed Alcohol-induced acute pancre atitis without infection or necrosis 07/10/2017 03/17/2019 Assessment & Plan (07/10/2017 12:37 PM SUPERVISOR PREPRESS): Recurrent, most likely again induced by alcohol. Supportive care Advance diet slowly when symptoms improve Nausea & vomiting 07/10/2017 01/28/2018 Assessment & Plan (07/10/2017 12:37 PM SUPERVISOR PREPRESS): Antiemetics as needed Flu-like symptoms 07/10/2017 03/17/2019 Assessment & Plan (07/10/2017 12:46 PM SUPERVISOR PREPRESS): Influenza negative but with joint pain, generalized [...] Pneumococcal Conjugate PCV 13 04/30/2018 Tdap 10/22/2017 Surgical History Surgery Date Site/Laterality Comments SECTION 07/08/1983 - 07/07/1984 section TONSILLECTOMY 07/08/1983 - 07/07/1984 Tonsillectomy OTHER SURGICAL HISTORY 07/08/2012 - 07/07/2013 Pancreatitis: [facility] 02/10/13 - 02/24/13 OTHER SURGICAL HISTORY 07/08/2013 - 07/07/2014 Panceatitis: Medical Management OTHER SURGICAL HISTORY 07/08/2013 - 07/07/2014 pancreatitis: Medical Management OTHER SURGICAL HISTORY 07/08/2014 - 07/07/2015 pancreatitis: Medical Management OTHER SURGICAL HISTORY 07/08/1987 - 07/07/1988 : 14 hr labor OTHER SURGICAL HISTORY 07/08/1990 - 07/07/1991 : 12 hr labor TUBAL LIGATION Bilateral Tubal ligation OTHER SURGICAL HISTORY Alcoholic Pancreatitis: Medical Management OTHER SURGICAL HISTORY pancreatitis: Medical Management COLON SURGERY ABLATION 07/08/2005 - 07/07/2006 COLONOSCOPY 11/11/2009 COLONOSCOPY 04/10/2021 COLONOSCOPY 10/17/2021 Medical History Medical History Date Comments 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 Hx Other Medical ER, sob Pancreatitis 2013 Pancreatitis Hx Other Medical pancretitis; Co mments: LNP 12/14/2013 - Hx Other Medical Panceatitis; Ou tcome: improved Hx Other Medical pancreatitis Hx Other Medical pancreatitis; O utcome: improved Hx Other Medical ; Outc ome: 40W0D week 7lb(s) 12 oz Female Hx Other Medical ; Outc ome: 40W0D week 9lb(s) 5 oz Male Hx Other Medical Alcoholic Pancr eatitis; Outcome: improved Hx Other Medical pancreatitis Asthma COPD (chronic obstructive pu lmonary disease) (HCC) Hypertension Thyroid disease Diabetes mellitus (HCC) Liver disease Fatty liver Type 2 diabetes mellitus (HCC) Hypothyroidism PONV (postoperative nausea and vomiting) Depression Breast disorder Family History Medical History Relation Name Comments Allergy (severe) Brother Migraines Daughter 1 Migraines Daughter 2 Migraines; Allergy (severe) Father Hypertension Father Alzheimer's disease Maternal Grandmother Arthritis Maternal Grandmother COPD Maternal Grandmother Arthritis Mother Depression Mother Migraines Mother Migraines; Cancer Paternal Grandfather Heart attack Paternal Grandfather Alzheimer's disease Paternal Grandmother Cancer Paternal Grandmother Relation Name Status Comments Brother Daughter 1 Alive Daughter 2 Father Maternal Grandmother Mother Alive Paternal Grandfather Paternal Grandmother Social History Tobacco Use Types Packs/Day Years [...] week 05/26/2021 How often do you attend chur ch or caodaism services? Never 05/26/2021 Do you belong to any clubs o r organizations such as muslim groups, unions, fraternal or athletic groups, or [...] place to sleep or slept in a detention (including now)? No 05/29/2021 Comments No Sex and Gender Information Value Date Recorded Sex Assigned at Not on file Legal Sex Female 8:43 AM SUPERVISOR PREPRESS Gender Identity Not on file Sexual Orientation Not on file Obstetrics History Para Term AB IAB SAB Ectopic Multiple Livin g Live Births 2 2 2 Date Outcome GA Total Labor Labor/2nd/3rd Weight Sex Type Anes PTL Clarisa A1 A5 Name Clin Term Term Last Filed Vital Signs Vital Sign Reading [...] 04/07/2024 11:26 AM CDT Plan of Treatment Health Maintenance Due Date Last Done Comments Osteoporosis Screening-Bone Density Scan 1970 Dilated Eye Exam 1970 Hepatitis B Screening 10/03/1987 Pneumococcal vaccine <65 (2 of 2 - PPSV23 or PCV20) 06/25/2018 04/30/2018 Zoster Vaccine (1 of 2) 10/03/2019 Cervical Cancer Screening 04/21/20222020, 04/20/2021, 09/15/2015 Covid-19 Vaccine (2023-08 5 season) 2024 06/19/2022, 09/19/2021, 01/31/2021, Additional history exists Breast Cancer Screening-Mammogram 09/05/2024 09/06/2023, 10/13/2021, 10/18/2015 Hemoglobin A1C 09/29/2024 04/01/2024, 09/06, 03/25/2023, Additional history exists Albumin Creatinine Ratio, Urine 04/01/2025 04/01/2024, 03/25/2023, 03/16/2022, Additional history exists Lipid Panel 04/01/2025 04/01/2024, 09/06, 03/25/2023, Additional history exists eGFR 04/01/2025 04/01/2024, 09/06, 03/25/2023, Additional history exists Depression Screening 04/07/2025 04/07/2024, 10/01/2023, 04/02/2023, Additional history exists Foot Exam 04/07/2025 04/07/2024, 03/09, 09/25/2022, Additional history exists Regular Well Visit/Exam 18-64 04/07/2025, 04/02/2023, 03/23/2022, Additional history exists DTaP/Tdap/Td Vaccine (2 - Td or Tdap) 10/23/2027 10/22/2017 Colon Cancer Screening-Colonoscopy 10/18/2031 10/17/2021, 04/10/2021, 11/11/2009, Additional history exists Hepatitis C Screening Completed 06/22/2018, 015 Colon Cancer Screening-CT Colonography Discontinued 10/17/2021, 04/10/2021, 11/11/2009, Additional history exists Colon Cancer Screening-DNA Stool Discontinued 10/17/2021, 04/10/2021, 03/21/2021, Additional history exists Colon Cancer Screening-FIT Discontinued 10/17, 04/10/2021, 03/21/2021, Additional history exists Colon Cancer Screening-Sigmoidoscopy Discontinued 10/17/2021, 04/10/2021, 11/11/2009, Additional history exists Influenza Vaccine Completed 04/07/2024, , 05/24/2022, Additional history exists Goals Goal Patient Goal Type Associated Problems Recent Progress Patient-Stated? Author Diabetes Goal - Patient verbalizes knowledge and ability to manage diabetes ACO Care Management On track( 018 1:06 PM SUPERVISOR PREPRESS) Kori Maguire, RN Note: Problem: Knowledge deficit - Diabetes [...] Read Routine (OP Routine) 09/06/2023 12:30 PM SUPERVISOR PREPRESS Abnormal mammogram COLONOSCOPY 10/17/2021 9:52 AM CDT THINPREP PAP Routine 04/21/2021 HM DIABETES FOOT EXAM Routine 08/01/2018 HEPATITIS PANEL, ACUTE STAT 06/22/2018 4:48 AM SUPERVISOR PREPRESS from Last 3 Months or Most Recently [...] was last reviewed 2021. Testing performed by: [address] [address] Blood 04/01/2024 12:0 1 PM CDT 04/01/2024 6:26 PM CDT Teo Joyner MD LAB BLOOD ORDERABLES Fi nal Result EMELY CAPPS (ESTHER) 1 [facility] [place] [address] * Albumin Creatinine Ratio, Urine (04/01/2024 12:01 PM CDT) Albumin Ur <12.0 mg/L Comment: Interpretive Data No reference range established. Current interpretive data was last revised 2018. Testing performed by: [address] [address] Creatinine Ur 33.4 mg/dL EMELY CAPPS (ESTHER) Comment: Interpretive Data No reference range established. Current interpretive data was last revised 2018. Testing performed by: [address] [address] Albumin Creatinine Ratio, Ur See Comment 1 - 29 EMELY CAPPS (ESTHER) Comment: Unable to calculate Testing performed by: [address] [address] Urine 04/01/2024 12:0 1 PM CDT 04/01/2024 6:20 PM CDT Teo Joyner MD LAB URINE ORDERABLES Fi nal Result Performing Organization Address [facility] Co de Phone Number EMELY CAPPS ([place]) 1 [facility] [place] [address] * (ABNORMAL) Hemoglobin A1c (04/01/2024 12:01 PM CDT) [facility] Hgb A1C 5.8(H) 4.0 - 5.6 % Comment:Testing performed by : [facility], [address] [place] [address]., [id number] Estimated Average Glucose 120 mg/dL EMELY CAPPS ([place]) Comment: The ADA recommends reporting an estimated Average Glucose (eAG) with all Hemoglobin A1c results using the equation derived from a study of 507 normal and diabetic adults. ??Minority populations were underrepresented and children were not included. ?? (Diabetes Care 31:9967-5146, 2008). ??The eAG is not equivalent to a fasting glucose. Testing performed by: [facility], [address] [place] [address]., [id number] Blood 04/01/2024 12:0 1 PM CDT 04/01/2024 6:20 PM CDT us Teo Joyner MD LAB BLOOD ORDERABLES Fi nal Result Performing Organization Address [facility] Co de Phone Number EMELY CAPPS ([place]) 1 [facility] [place] [address] * Lipid panel (04/01/2024 12:01 PM CDT) [facility] Cholesterol 165 30 - 199 mg/dL Comment: [...] last revised on 2018. Testing performed by: [facility], [address] [place] [address]., [id number] Triglycerides 124 <=149 mg/dL EMELY CAPPS (ESTHER) [...] last revised on 2018. Testing performed by: [facility], [address] [place] [address]., [address] HDL 92 >=40 mg/dL EMELY Yancey (ESTHER) Comment: Interpretive Data Ages < or [...] last revised on 2018. Testing performed by: [facility], [address] [place] [address]., [id number] LDL, calculated 52 <=129 mg/dL EMELY CAPPS [...] last revised on 2024. Testing performed by: [facility], [address] [place] [address]., [address] Non-HDL Cholesterol 73 mg/dL EMELY CAPPS (ESTHER) [...] last revised on 2018. Testing performed by: [facility], [address] [place] [address]., [id number] Chol/HDL ratio 2 FRANSICOMICHAEL Demetrio CAPPS ([place]) Comment:Testing performed by : [facility], [address] [place] [address]., [id number] Blood 04/01/2024 12:0 1 PM CDT 04/01/2024 6:20 PM CDT Narrative EMELY GÉNESIS ([place]) - 04/01/2024 7:02 PM CDT Has the patient been fasting for 8 hours or more?->Yes us Teo Joyner MD LAB BLOOD ORDERABLES Fi nal Result EMELY CAPPS ([place]) 1 [facility] [place] [address] * Diagnostic Mammogram Bilateral W Mike (09/06/2023 12:30 PM SUPERVISOR PREPRESS) Anatomical Region Laterality Modality Breast Bilateral Mammography 09/06/2023 2:10 PM SUPERVISOR PREPRESS Impressions 09/06/2023 2:10 PM SUPERVISOR PREPRESS 1. ??The marker calcifications of concern in [...] signed by: TERI Montgomery 09/06/2023 2:10 PM SUPERVISOR PREPRESS EXAMINATION: DIAGNOSTIC MAMMOGRAM BILATERAL W MIKE ORDERING [...] architectural distortion. ??Given the lack of interval pack changer the past 2 years, these are now considered benign. ??There is no new suspicious finding in either breast. us Teo Joyner MD IMG MAMMO PROCEDURES Fi nal Result * COLONOSCOPY (10/17/2021 9:52 AM CDT) Anatomical Region Laterality Modality Other Narrative Procedure Note Kartik Fowler MD - 10/17/2021 9:52 AM CDT [facility] Patient Name: Jimmy Xavier Procedure Date: 10/17/2021 9:52 AM Date of : 1970 Admit Type: Outpatient Age: 51 Gender: Female Attending MD: Kartik Fowler M.D. Room: [facility] ENDOSCOPY ROOM 2 Note Status: Finalized Patient [...] scope was passed under direct vision. TheColonoscope [id number] was introduced through the anus and advanced [...] 9:52 AM Procedure Code(s): --- Professional --- 68668, Colonoscopy, flexible; with removal of tumor(s), polyp(s), or other lesion(s) by snare technique Diagnosis Code(s): --- Professional --- D12.3, Benign neoplasm of transverse colon (hepatic flexure orsplenic flexure) Z98.0, Intestinal bypass and anastomosis status K64.9, Unspecified hemorrhoids Z86.010, Personal history of colonic polyps CPT copyright 2020 [employer]. All rights reserved. The codes documented in this report are preliminary and upon branch service associate reviewmay be revised to meet current compliance requirements. Recognized by the [employer] for promoting quality in endoscopy Kartik Fowler MD ENDOSCOPY PROCEDURES Final Re sult * ThinPrep Pap (04/21/2021) 04/21/2021 Historical Provider LAB PATHOLOGY ORDERABLES Final Result * DIABETES FOOT EXAM (08/01/2018) Diabetic Foot Exam Normal Historical Provider HEALTH MAINTENANCE Final Result * Hepatitis panel, acute (06/22/2018 4:48 AM SUPERVISOR PREPRESS) Hep A IgM Negative Negative [facility] (ESTHER) Comment:Testing performed by : [facility], [address] [place] [address]., [id number] Hep B core IgM Negative Negative [facility] (ESTHER) Comment:Testing performed by : [facility], [address] [place] [address]., [id number] Hep C Ab Negative Negative [facility] (ESTHER) Comment:Testing performed by : [facility], [address] [place] [address]., [id number] HepBsAg Negative Negative [facility] (ESTHER) Comment:Testing performed by : [facility], [address] [place] [address], [id number] Blood specimen (specimen) 06/22/2018 4:48 AM SUPERVISOR PREPRESS 06/23/2018 1:43 PM SUPERVISOR PREPRESS Narrative [facility] (ESTHER) - 06/23/2018 3:11 PM SUPERVISOR PREPRESS Anayeli Mcdaniel MD LAB MICROBIOLOGY - GENERAL ORDERABLES Final Result [facility] (ESTHER) 1 [facility] [place] [address] from Last 3 Months or Most Recently Relevant to Health Maintenance Insurance MEDICARE [facility] MEDICARE MEDICARE Advance Directives For more information, please contact: [phone] * Full Code (Latest Code Status on [...] 4:06 AM 06/26/2018 12:49 PM Care Teams Transporter Driver Relationship Specialty Start Date End Date Teo Joyner MD PCP - General 10/05/16
--- NOTE | 2024-08-06 03:03 | ED_ITS ---
HPI - SOB/Dyspnea General Chief Complaint: Shortness of Breath/Dyspnea Stated Complaint: shortness of breathe Time Seen by Provider: 08/06/24 03:03 Source: patient and EMS Mode of arrival: EMS Limitations: no limitations History of Present Illness HPI Narrative: 53-year-old female with a history of smoking, alcohol use, opiate use, hypertension, diabetes mellitus, hypothyroidism, migraine, depression, COPD presented to the ED with --worsening shortness of breath which has been worse for the past 2 days. -- cough which is productive of mucopurulent sputum -- severe anxiety no fever or chills no chest pain denied upper respiratory tract symptoms including nasal congestion, sore th MD elicited complaint: shortness of breath and cough Pertinent past history: COPD Onset (ago): day(s) ( 2 days) Timing: constant Severity: severe Exacerbating factors: exertion Relieving factors: nothing Known history of: COPD and diabetes Associated symptoms: cough, wheezing and sputum production Treatment prior to arrival: bronchodilator Related Data Home oxygen amount: none Home Medications ?Medication ?Instructions ?Recorded ?Confirmed ?Last Taken ?Type albuterol sulfate 90 mcg/actuation 2 puff inhalation BID 03/04/21 03/07/21 Unknown History aerosol inhaler atenolol 50 mg tablet 50 mg PO DAILY 03/04/21 03/07/21 03/07/21 History citalopram 20 mg tablet 20 mg PO DAILY 03/04/21 03/07/21 03/07/21 History furosemide 40 mg tablet 40 mg PO DAILY 03/04/21 03/07/21 03/07/21 History hydrocodone 10 mg-acetaminophen 1 tablet PO BID 03/04/21 03/07/21 03/07/21 History 325 mg tablet ipratropium 0.5 mg-albuterol 3 mg 3 ml inhalation BID 03/04/21 03/07/21 Unknown History (2.5 mg base)/3 mL nebulization soln levothyroxine 75 mcg tablet 75 mcg PO DAILY 03/04/21 03/07/21 03/07/21 History potassium chloride 20 mEq 20 meq PO DAILY 03/04/21 03/07/21 03/07/21 History tablet,extended release(part/cryst) insulin glargine 100 unit/mL (3 25 unit subcut HS 03/07/21 03/07/21 03/06/21 History mL) subcutaneous pen (Basaglar KwikPen U-100 Insulin) Allergies Allergy/AdvReac Type Severity Reaction Status Date / Time sumatriptan (From Imitrex) AdvReac Unknown Verified 08/06/24 04:52 Review of Systems 2 Review of Systems: All systems reviewed & are unremarkable except as noted in HPI and below Constitutional: Constitutional: Reports as per HPI and Reports no additional constitutional complaints Eyes: Eyes: Reports as per HPI and Reports no additional eye complaints ENT: Reports system reviewed and no additional complaints, except as documented and Reports as per HPI Cardiovascular: Cardiovascular: Reports as per HPI and Reports no additional cardiovascular complaints Respiratory: Respiratory: Reports as per HPI, Reports no additional respiratory complaints, Reports cough, Reports dyspnea and Reports wheezing Gastrointestinal: Gastrointestinal: Reports as per HPI and Reports no additional gastrointestinal complaints Genitourinary: Genitourinary: Reports no additional female genitourinary complaints and Reports as per HPI Musculoskeletal: Musculoskeletal: Reports no additional musculoskeletal complaints and Reports as per HPI Integumentary/Breasts: Skin/Breast: Reports system reviewed and no additional complaints, except as docu and Reports as per HPI Neurologic: Reports system reviewed and no additional complaints, except as documented and Reports as per HPI Psychiatric: Psychiatric: Reports no additional psychiatric complaints, Reports as per HPI and Reports anxiety Endocrine: Endocrine: Reports no additional endocrine complaints and Reports as per HPI Hematologic/Lymphatic: Hematologic/Lymphatic: Reports no additional hematologic/lymphatic complaints and Reports as per HPI Allergic/Immunologic: Allergic/Immunologic: Reports no additional allergic/immunologic complaints and Reports as per HPI PMFSH Past Medical History Medical History Depression Hypertension COPD (chronic obstructive pulmonary disease) Type 2 diabetes mellitus Hx of migraines Hypothyroidism Surgical History Surgical History History of tonsillectomy Social History Social History Alcohol intake: current Substance use: current Substance use type: opiates Exam 2 Narrative: afebrile oxygen saturation of 92% on room air. Const: General: ill appearing Orientation/consciousness: patient oriented x3 Limitations: no limitations HENMT: Head: normal to inspection Ears: external ears normal F kayleigh/Nose/Sinus: Normal external nose present Face and sinus: normal facial exam Mouth: Yes Normal oral and palatal mucosa present Throat: posterior oropharynx normal Eyes: Conjunctivae: conjunctivae normal Pupils: Equal, round and reactive pupils present EOM: EOMs intact bilaterally Direct Ophthalmoscopy: no photophobia Neck: Neck: normal visual inspection, no lymphadenopathy and no meningeal signs Chest: Chest palpation & inspection: normal inspection of the chest Resp: Effort & Inspection: uses accessory muscles Auscultation: wheezes and diminished lung sounds Cardio: Rate: regular rate Rhythm: regular rhythm GI: GI Palp: Yes Soft to palpation Other: No tenderness/ rigidity /rebound : General: Yes no CVA tenderness Back/Spine/Pelvis: Back: no CVA tenderness Skin: General skin exam: normal color Rashes: no rashes Wounds: no wounds Other: Extensive bruising of the left leg and foot from a fall in the recent past. Neuro: General: patient oriented x3, moves all extremities, no meningeal signs, no focal motor deficits and CN's II-XI intact bilaterally Cranial nerves: Yes Nystagmus not present Speech: normal speech Gait exam (Neuro): Normal gait present Extrem: General: normal to inspection and no clubbing, cyanosis or edema Psych: Mental Status: mental status grossly normal Affect: normal affect Attitude: cooperative Course Course Emergency Course: COPD exacerbation-- patient received DuoNeb treatment by EMS. In the ED she received 125 mg of IV Solu-Medrol. influenza a alcoholic hepatitis-- advised the patient to quit drinking. Vital Signs Vital signs: Vital Signs Pulse Rate 131 H 08/06/24 03:13 Respiratory Rate 18 08/06/24 03:13 Pulse Oximetry 92 08/06/24 03:13 Temperature 35.7 C L 08/06/24 03:18 Pulse Rate 124 H 08/06/24 04:31 Respiratory Rate 21 H 08/06/24 04:31 Blood Pressure 177/91 H 08/06/24 04:31 Pulse Oximetry 91 08/06/24 04:31 Oxygen Delivery Room Air 08/06/24 03:43 MDM - SOB/Dyspnea MDM Narrative Medical decision making narrative: influenza a COPD exacerbation alcoholic hepatitis Differential Diagnosis Differential diagnosis: Likely congestive heart failure and community acquired pneumonia Lab Data 08/06/24 03:31 08/06/24 03:31 Labs: Lab Results 0108/06/24 08/06/24 Range/Units 03:31 04:16 04:17 WBC 7.5 (4.8-10.8) K/mm3 RBC 4.07 L (4.20-5.40) M/mm3 Hgb 14.5 (12.0-15.0) g/dL Hct 42.7 (35.0-49.0) % MCV 104.9 H (78.0-102.0) fL MCH 35.6 H (27.0-31.0) pg MCHC 34.0 (32-36) g/dL RDW 11.2 L (11.6-14.4) % Plt Count 177 (150-420) K/mm3 MPV 9.4 (9.2-11.8) fl Immature Gran % (Auto) 0.3 H (0.0-0.0) % Neut % (Auto) 72.4 H (50.0-70.0) % Lymph % (Auto) 15.1 L (18.0-42.0) % Coos % (Auto) 11.2 H (2.0-11.0) % Eos % (Auto) 0.1 L (1.0-6.0) % Baso % (Auto) 0.9 (0.0-1.0) % Lymph # (Auto) 1.13 (1.10-4.50) K/mm3 Coos # (Auto) 0.84 (0.10-0.90) K/mm3 Eos # (Auto) 0.01 L (0.02-0.50) K/mm3 Baso # (Auto) 0.07 (0.00-0.10) K/mm3 Abs Immat Gran (auto) 0.02 H (0.00-0.00) K/mm3 Absolute Neuts (auto) 5.41 (1.70-7.20) K/mm3 Absolute Nucleated RBC 0.00 (0.00-0.00) K/mm3 Nucleated RBC % 0.0 (0-0.0) % Sodium 136 (136-145) mmol/L Potassium 3.7 (3.5-5.1) mmol/L Chloride 100 (98-108) mmol/L Carbon Dioxide 26 (21-32) mmol/L Anion Gap 10 (4-12) mmol/L BUN 10 (7-18) mg/dL Creatinine 0.70 (0.55-1.02) mg/dL Estim Creat Clear Calc Not Reportable Estimated GFR > 60 (59 - ) Glucose 159 H (70-99) mg/dL Calculated Osmolality 284 L (285-295) mOsm/kg Lactic Acid 1.3 (0.4-2.0) mmol/L Calcium 10.0 (8.5-10.1) mg/dL Total Bilirubin 0.2 (0.00-1.00) mg/dL AST 84 H (15-37) U/L ALT 61 H (14-59) U/L Alkaline Phosphatase 101 (46-116) U/L Troponin I 19.5 (0.00-60.4) ng/L NT-Pro-B Natriuret Pep 185 H (0-125) pg/mL Total Protein 7.1 (6.4-8.2) g/dL Albumin 3.7 (3.4-5.0) g/dL Urine Color Light yellow (Yellow) Urine Appearance Clear (Clear) Urine pH 5.5 (5.0-8.0) Ur Specific [place] >= 1.030 H (1.010-1.020) Urine Protein Negative (Negative) Urine Glucose (UA) Trace H (Negative) Urine Ketones Negative (Negative) Ur Blood (Man) Negative (Negative) Urine Nitrate Negative (Negative) Urine Bilirubin Negative (Negative) Urine Urobilinogen 0.2 (0.2-1.0) mg/dL Leukocyte Esterase Rfl Negative (Negative) ALCON/UL Urine Opiates Screen Positive A (Negative) Urine Methadone Screen Negative (Negative) Ur Barbiturates Screen Negative (Negative) Ur Phencyclidine Scrn Negative (Negative) Ur Amphetamine Screen Negative (Negative) U Benzodiazepines Scrn Negative (Negative) Urine Cocaine Screen Negative (Negative) U Cannabinoids Screen Negative (Negative) Influenza A (RT-PCR) Positive A (Negative) Influenza B (RT-PCR) Negative (Negative) RSV (RT-PCR) Negative (Negative) SARS-CoV-2 RNA (RT-PCR) Negative (Negative) Discharge Plan Discharge Clinical Impression: COPD exacerbation, Influenza A Alcoholic hepatitis Qualifiers: Ascites presence: without ascites Qualified Code(s): K70.10 - Alcoholic hepatitis without ascites Patient Disposition: Home, Self-Care Condition: Stable Instructions: Antibiotic Form, Influenza (ED), COPD (Chronic Obstructive Pulmonary Disease) (DC), Alcoholic Hepatitis (ED) Additional Instructions: advised to hold citalopram for 4 days. Patient Language: Bulgarian Prescriptions: New azithromycin [Zithromax] 250 mg tablet 250 mg PO DAILY 4 Days Qty: 4 0RF Rx Instructions: start on day 2 of therapy prednisone 20 mg tablet 20 mg PO BID Qty: 10 0RF No Action furosemide 40 mg tablet 40 mg PO DAILY ipratropium-albuterol 0.5 mg-3 mg(2.5 mg base)/3 mL solution for nebulization 3 ml INHALATION BID hydrocodone-acetaminophen 10-325 mg tablet 1 tablet PO BID levothyroxine 75 mcg tablet 75 mcg PO DAILY citalopram 20 mg tablet 20 mg PO DAILY potassium chloride 20 mEq tablet,ER particles/crystals 20 meq PO DAILY albuterol sulfate 90 mcg/actuation HFA aerosol inhaler 2 puff INHALATION BID atenolol 50 mg tablet 50 mg PO DAILY Gayatri Salazar U-100 Insulin 100 unit/mL (3 mL) insulin pen 25 unit SUBCUT HS Follow-up/Referrals: UNKNOWN,DOCTOR [Primary Care Provider] - Time of Disposition: 05:07
--- NOTE | 2024-08-06 03:11 | ECG_ITS ---
Test Date: 2024-08-06 03:33:00 Measurements Intervals [place] Rate: 129 P: 80 OR: 144 QRS: 81 QRSD: 94 T: 62 QT: 316 QTc: 463 Interpretive Statements SINUS TACHYCARDIA ABNORMAL RHYTHM ECG No previous ECG available for comparison Electronically Signed On 08-06-2024 11:40:33 EX ASSISTANT/PROGRAM DIRECTOR by Nahid Martin M.D.
[2024-08-06] MEDS: methylPREDNISolone SOD SUCC 125 MG VIAL IV PUSH (03:45)
[2024-08-06] MEDS: AZITHROMYCIN 500 MG/NS 250 ML 500 MG/250 ML BAG 250 MG IVPB (03:46)
[2024-08-06] MEDS: KETOROLAC 30 MG/ML VIAL (*BKC) IM (04:01)
--- OUTSIDE RECORDS SUMMARY | 2024-08-06 04:08 | XMS_ITS | Referral Summary ---
Author Organization [facility] Address [address] [place] [id number] Care Team Providers Care Slot Key Person Name Role Phone Teo Joyner MD Primary [...] 2 diabetes mellitus without complication, unspecified whether continuous churn buttermaker insulin use (HCC) USE 1 DAILY 50 [...] 05/24/2021 Assessment & Plan (06/07/2021 10:38 AM STEAM FITTER SUPERVISOR): Recently hospitalized Symptoms improved. See hospitalization assessment above Menopause 03/29/2021 Positive colorectal cancer s creening using DNA-based stool test 03/29/2021 Overview (03/29/2021): Added automatically from request for surgery [id number] History of colonic polyps 03/29/2021 Overview (03/29/2021): Added automatically from request for surgery [id number] Medicare annual wellness visit, subsequent 02/03 Epistaxis 10/29/2019 Assessment & Plan (10/29/2019 10:30 AM CDT): Augmentin with a meal twice daily for 7 days Nasal saline spray (Simply saline, Little Remedies, Hudspeth, Sapphire) 2 second sprays or 2 squeezes into [...] Nasal saline spray (Simply saline, Little Remedies, Hudspeth, Sapphire) 2 second sprays or 2 squeezes into each nostril while looking down over the sink, do not need to sniff in 3-4 times per day Humidifier next to bed Hypertension associated with diabetes 09/16/2019 Moderate episode of recurrent major depressive d isorder 09/16/2019 Type 2 diabetes mellitus wit hout complication, with long-term current use of insulin ([facility]) 09/15/2019 Body mass index (BMI) of 21.0 [...] alcoholism Assessment & Plan (07/10/2017 12:47 PM STEAM FITTER SUPERVISOR): Acute on chronic pancreatitis. Keep npo until [...] 12/19/2022 Assessment & Plan (05/31/2021 2:49 PM STEAM FITTER SUPERVISOR): Hospitalized for acute copd exacerbation Med rec reviewed Completed cefdinir and prednisone HRS kit at home F/u prn Colon polyp 04/19/2021 05/18/2021 Overview (04/19/2021): Added automatically from request for surgery [id number] Acute recurrent maxillary sinusitis 10/29/2019 12/19/2022 Assessment & Plan (10/29/2019 2:26 PM CDT): Augmentin with a meal twice daily for 7 days Nasal saline spray (Simply saline, Little Remedies, Hudspeth, Sapphire) 2 second sprays or 2 squeezes into each nostril while looking down over the sink, do not need to sniff in 3-4 times per day Humidifier next to bed Alcohol-induced acute pancre atitis without infection or necrosis 07/10/2017 03/17/2019 Assessment & Plan (07/10/2017 12:37 PM STEAM FITTER SUPERVISOR): Recurrent, most likely again induced by alcohol. Supportive care Advance diet slowly when symptoms improve Nausea & vomiting 07/10/2017 01/28/2018 Assessment & Plan (07/10/2017 12:37 PM STEAM FITTER SUPERVISOR): Antiemetics as needed Flu-like symptoms 07/10/2017 03/17/2019 Assessment & Plan (07/10/2017 12:46 PM STEAM FITTER SUPERVISOR): Influenza negative but with joint pain, generalized [...] week 05/26/2021 How often do you attend [facility] or [facility]? Never 05/26/2021 Do you belong to any clubs o r organizations such as christianity groups, unions, fraternal or athletic groups, or [...] place to sleep or slept in a [place] [facility] [place] facility (including now)? No 05/29/2021 Comments No Sex and Gender Information Value Date Recorded Sex Assigned at Not on file Legal Sex Female 8:43 AM STEAM FITTER SUPERVISOR Gender Identity Not on file Sexual Orientation [...] Care Management On track( 018 1:06 PM STEAM FITTER SUPERVISOR) No Kori Garcia, RN Note: Problem: Knowledge [...] Read Routine (OP Routine) 09/06/2023 12:30 PM STEAM FITTER SUPERVISOR Abnormal mammogram COLONOSCOPY 10/17/2021 9:52 AM CDT THINPREP PAP Routine 04/21/2021 HM DIABETES FOOT EXAM Routine 08/01/2018 HEPATITIS PANEL, ACUTE STAT 06/22/2018 4:48 AM STEAM FITTER SUPERVISOR from Last 3 Months or Most Recently [...] was last reviewed 2021. Testing performed by: [facility], [address] [place] [address], [place]., [address] Blood 04/01/2024 12:0 1 PM CDT 04/01/2024 6:26 PM CDT Teo Joyner MD LAB BLOOD ORDERABLES Fi nal Result Performing Organization Address [facility] Co de Phone Number EMELY CAPPS (ESTHER) 1 [facility] [employer] [place] [address] * Albumin Creatinine Ratio, Urine (04/01/2024 12:01 PM CDT) Albumin Ur <12.0 mg/L Comment: Interpretive Data No reference range established. Current interpretive data was last revised 2018. Testing performed by: [facility], [address] [place] [address]., [id number] Creatinine Ur 33.4 mg/dL EMELY CAPPS (ESTHER) Comment: Interpretive Data No reference range established. Current interpretive data was last revised 2018. Testing performed by: [facility], [address] [place] [address]., [address] Albumin Creatinine Ratio, Ur See Comment 1 - 29 EMELY CAPPS (ESTHER) Comment: Unable to calculate Testing performed by: [facility], [address] [place] [address]., [id number] Urine 04/01/2024 12:0 1 PM CDT 04/01/2024 6:20 PM CDT Teo Joyner MD LAB URINE ORDERABLES Fi nal Result Performing Organization Address [facility] Co de Phone Number EMELY CAPPS (ESTHER) 1 [facility] [employer] [place] [address] * (ABNORMAL) Hemoglobin A1c (04/01/2024 12:01 PM CDT) Hgb A1C 5.8(H) 4.0 - 5.6 % Comment:Testing performed by : [address] [address] Estimated Average Glucose 120 mg/dL EMELY CAPPS (ESTHER) Comment: The ADA recommends reporting an estimated Average Glucose (eAG) with all Hemoglobin A1c results using the equation derived from a study of 507 normal and diabetic adults. ??Minority populations were underrepresented and children were not included. ?? (Diabetes Care 31:8475-2323, 2008). ??The eAG is not equivalent to a fasting glucose. Testing performed by: [facility], [address] [place] [address]., [address] Blood 04/01/2024 12:0 1 PM CDT 04/01/2024 6:20 PM CDT us Teo Joyner MD LAB BLOOD ORDERABLES Fi nal Result EMELY CAPPS ([place]) 1 [facility] [place] [address] * Lipid panel (04/01/2024 12:01 PM CDT) [...] last revised on 2018. Testing performed by: [facility], [address] [place] [address], [place]., [address] Triglycerides 124 <=149 mg/dL EMELY CAPPS (ESTHER) [...] last revised on 2018. Testing performed by: [facility], [address] [place] [address]., [address] HDL 92 >=40 mg/dL EMELY GALLO) Comment: [...] last revised on 2018. Testing performed by: [facility], [address] [place] [address], [place]., [address] LDL, calculated 52 <=129 mg/dL EMELY CAPPS [...] last revised on 2024. Testing performed by: [address] [address] Non-HDL Cholesterol 73 mg/dL EMELY CAPPS (ESTHER) [...] last revised on 2018. Testing performed by: [facility], [address] [place] [address]., [address] Chol/HDL ratio 2 ITALIA CAPPS (ESTHER) Comment:Testing performed by : [address] [address] Blood 04/01/2024 12:0 1 PM CDT 04/01/2024 6:20 PM CDT Narrative EMELY CAPPS (ESTHER) - 04/01/2024 7:02 PM CDT Has the patient been fasting for 8 hours or more?->Yes us Teo Joyner MD LAB BLOOD ORDERABLES Fi nal Result EMELY CAPPS ESTHER) 1 [facility] [place] [address] * Diagnostic Mammogram Bilateral W Mike (09/06/2023 12:30 PM STEAM FITTER SUPERVISOR) Anatomical Region Laterality Modality Breast Bilateral Mammography 09/06/2023 2:10 PM STEAM FITTER SUPERVISOR Impressions 09/06/2023 2:10 PM STEAM FITTER SUPERVISOR 1. ??The marker calcifications of concern in [...] signed by: TERI Montgomery 09/06/2023 2:10 PM STEAM FITTER SUPERVISOR EXAMINATION: DIAGNOSTIC MAMMOGRAM BILATERAL W MIKE ORDERING [...] architectural distortion. ??Given the lack of interval change analyst the past 2 years, these are now considered benign. ??There is no new suspicious finding in either breast. us Teo Joyner MD IMG MAMMO PROCEDURES Fi nal Result * COLONOSCOPY (10/17/2021 9:52 AM CDT) Anatomical Region Laterality Modality Other Narrative Procedure Note Kartik Fowler MD - 10/17/2021 9:52 AM CDT [facility] Patient Name: Jimmy Xavier Procedure Date: 10/17/2021 9:52 AM Date of : 1970 Admit Type: Outpatient Age: 51 Gender: Female Attending MD: Kartik Fowler M.D. Room: [facility] ENDOSCOPY ROOM 2 Note Status: Finalized [...] scope was passed under direct vision. TheColonoscope [id number] was introduced through the anus and advanced [...] 9:52 AM Procedure Code(s): --- Professional --- 12046, Colonoscopy, flexible; with removal of tumor(s), polyp(s), or other lesion(s) by snare technique Diagnosis Code(s): --- Professional --- D12.3, Benign neoplasm of transverse colon (hepatic flexure orsplenic flexure) Z98.0, Intestinal bypass and anastomosis status K64.9, Unspecified hemorrhoids Z86.010, Personal history of colonic polyps CPT copyright 2020 [employer]. All rights reserved. The codes documented in this report are preliminary and upon financial services intern reviewmay be revised to meet current compliance requirements. Recognized by the [employer] for promoting quality in endoscopy Kartik Fowler MD ENDOSCOPY PROCEDURES Final Re sult * ThinPrep Pap (04/21/2021) 04/21/2021 Historical Provider LAB PATHOLOGY ORDERABLES Final Result * DIABETES FOOT EXAM (08/01/2018) Diabetic Foot Exam Normal Historical Provider HEALTH MAINTENANCE Final Result * Hepatitis panel, acute (06/22/2018 4:48 AM STEAM FITTER SUPERVISOR) Hep A IgM Negative Negative [facility] (ESTHER) Comment:Testing performed by : [facility], [address] [place] [address]., [address] Hep B core IgM Negative Negative [facility] (ESTHER) Comment:Testing performed by : [facility], [address] [place] [address]., [address] Hep C Ab Negative Negative [facility] (ESTHER) Comment:Testing performed by : [address] [address] HepBsAg Negative Negative [facility] (ESTHER) Comment:Testing performed by : [facility], [address] [place] [address]., [id number] Blood specimen (specimen) 06/22/2018 4:48 AM STEAM FITTER SUPERVISOR 06/23/2018 1:43 PM STEAM FITTER SUPERVISOR Narrative EMELY CAPPS (ESTHER) - 06/23/2018 3:11 PM STEAM FITTER SUPERVISOR us Anayeli Mcdaniel MD LAB MICROBIOLOGY - GENERAL ORDERABLES Final Result EMELY CAPPS (ESTHER) 1 [facility] Department [place] [address] from Last 3 Months or Most Recently Relevant to Health Maintenance Insurance MEDICARE [facility] MEDICARE MEDICARE Advance Directives For more information, please contact: [phone] * Full Code (Latest Code Status on [...] 4:06 AM 06/26/2018 12:49 PM Care Teams Slot Key Person Relationship Specialty Start Date End Date Teo Joyner MD PCP - General 10/05/16
--- OUTSIDE RECORDS SUMMARY | 2024-08-06 04:08 | XMS_ITS | Encounter Summary ---
Author Organization [facility] Address [address] [place] [address] Phone Care Team Providers Care Wool Buyer Name Role Phone Mukesh Rodriguez MD Primary Care Provider Kori Garcia RN Unavailable [phone] Neetu Emanuel RN Unavailable [phone] Erwin Estrada RN Unavailable [phone] Encounter Details Date Type Department Care Team (Late st Contact Info) Description 09/20/2017 Orders Only [facility] ProviderMeli MD [address] [place] [id number] Social History Tobacco Use Types Packs/Day Years Used Date Smoking Tobacco: Former Smokeless Tobacco: Never Alcohol Use Standard Drinks/Week Comments Yes 4 (1 standard drink = 0.6 oz pur e alcohol) Comments No Sex and Gender Information Value Date Recorded Sex Assigned at Not on file Legal Sex Female 8:43 AM DENTAL ASSISTANT MEDICAL ASSISTANT Gender Identity Not on file Sexual Orientation [...] COVID: Suspected 05/24/2021 05/24/2021 05/24/2021 10:17 PM DENTAL ASSISTANT MEDICAL ASSISTANT COVID: Suspected 09/10/2021 09/10/2021 09/10/2021 12:10 PM DENTAL ASSISTANT MEDICAL ASSISTANT COVID: Suspected 09/28/2021 09/28/2021 09/28/2021 2:01 PM CDT COVID: Suspected 03/03/2022 03/03/2022 03/03/2022 10:27 AM CDT COVID19 03/03/2022 03/03/2022 03/13/2022 3:05 AM CDT COVID: Recovered Comment:Added based on recent COVID infection. 03/13/2022 03/14/2022 07/11/2022 3:[address] documented as of this encounter Care Teams Wool Buyer Relationship Specialty Start Date End Date Mukesh Rodriguez MD PCP - General 10/05/16 Kori Garcia RN [address] [place] [address] Computer Consultant 06/27/18 07/31/18 Neetu Emanuel RN [address] [place], [place] [id number] Computer Consultant 05/03/21 05/28/21 Erwin Estrada RN [address] [place] [address] [address] [place] [address] Computer Consultant 05/29/21 08/02/21 documented as of this encounter
--- OUTSIDE RECORDS SUMMARY | 2024-08-06 04:08 | XMS_ITS | Clinical Summary ---
Author Organization [facility] Address [address] [place] [id number] Care Team Providers Care Debate Director Name Role Phone Teo Jyoner MD Primary Care Provider Allergies Active Allergy [...] 2 diabetes mellitus without complication, unspecified whether computer terminal operator insulin use (HCC) USE 1 DAILY 50 [...] 05/24/2021 Assessment & Plan (06/07/2021 10:38 AM POSTAL CARRIER): Recently hospitalized Symptoms improved. See hospitalization assessment above Menopause 03/29/2021 Positive colorectal cancer s creening using DNA-based stool test 03/29/2021 Overview (03/29/2021): Added automatically from request for surgery [id number] History of colonic polyps 03/29/2021 Overview (03/29/2021): Added automatically from request for surgery [id number] Medicare annual wellness visit, subsequent 02/03 Epistaxis 10/29/2019 Assessment & Plan (10/29/2019 10:30 AM CDT): Augmentin with a meal twice daily for 7 days Nasal saline spray (Simply saline, Little Remedies, [place], [place]) 2 second sprays or 2 squeezes into [...] Nasal saline spray (Simply saline, Little Remedies, [place], [place]) 2 second sprays or 2 squeezes into each nostril while looking down over the sink, do not need to sniff in 3-4 times per day Humidifier next to bed Hypertension associated with diabetes 09/16/2019 Moderate episode of recurrent major depressive d isorder 09/16/2019 Type 2 diabetes mellitus wit hout complication, with long-term current use of insulin ([facility]) 09/15/2019 Body mass index (BMI) of 21.0 [...] alcoholism Assessment & Plan (07/10/2017 12:47 PM POSTAL CARRIER): Acute on chronic pancreatitis. Keep npo until [...] 12/19/2022 Assessment & Plan (05/31/2021 2:49 PM POSTAL CARRIER): Hospitalized for acute copd exacerbation Med rec reviewed Completed cefdinir and prednisone HRS kit at home F/u prn Colon polyp 04/19/2021 05/18/2021 Overview (04/19/2021): Added automatically from request for surgery [id number] Acute recurrent maxillary sinusitis 10/29/2019 12/19/2022 Assessment & Plan (10/29/2019 2:26 PM CDT): Augmentin with a meal twice daily for 7 days Nasal saline spray (Simply saline, Little Remedies, [place], [place]) 2 second sprays or 2 squeezes into each nostril while looking down over the sink, do not need to sniff in 3-4 times per day Humidifier next to bed 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 Never 05/26/2021 Do you belong to any clubs o r organizations such as worship groups, unions, fraternal or athletic groups, or [...] place to sleep or slept in a long-term (including now)? No 05/29/2021 Comments No Sex and Gender Information Value Date Recorded Sex Assigned at Not on file Legal Sex Female 8:43 AM POSTAL CARRIER Gender Identity Not on file Sexual Orientation [...] Care Management On track( 018 1:06 PM POSTAL CARRIER) Kori Maguire, RN Note: Problem: Knowledge deficit [...] Read Routine (OP Routine) 09/06/2023 12:30 PM POSTAL CARRIER Abnormal mammogram COLONOSCOPY 10/17/2021 9:52 AM CDT THINPREP PAP Routine 04/21/2021 HM DIABETES FOOT EXAM Routine 08/01/2018 HEPATITIS PANEL, ACUTE STAT 06/22/2018 4:48 AM POSTAL CARRIER from Last 3 Months or Most Recently [...] was last reviewed 2021. Testing performed by: [address] [id number] Blood 04/01/2024 12:0 1 PM CDT 04/01/2024 6:26 PM CDT Teo Joyner MD LAB BLOOD ORDERABLES Fi nal Result EMELY CAPPS (ESTHER) 1 [facility] Department [place] [address] * Albumin Creatinine Ratio, Urine (04/01/2024 12:01 PM CDT) Albumin Ur <12.0 mg/L Comment: Interpretive Data No reference range established. Current interpretive data was last revised 2018. Testing performed by: [address] [address] Creatinine Ur 33.4 mg/dL EMELY CAPPS (ESTHER) Comment: Interpretive Data No reference range established. Current interpretive data was last revised 2018. Testing performed by: [address] [address] Albumin Creatinine Ratio, Ur See Comment 1 - 29 EMELY CAPPS (ESTHER) Comment: Unable to calculate Testing performed by: [address] [id number] Urine 04/01/2024 12:0 1 PM CDT 04/01/2024 6:20 PM CDT Teo Joyner MD LAB URINE ORDERABLES Fi nal Result Performing Organization Address [facility] Co de Phone Number EMELY CAPPS ([place]) 1 [facility] [place] [address] * (ABNORMAL) Hemoglobin A1c (04/01/2024 12:01 PM CDT) [facility] Hgb A1C 5.8(H) 4.0 - 5.6 % Comment:Testing performed by : [facility], [address] [place] [address]., [id number] Estimated Average Glucose 120 mg/dL EMELY CAPPS ([place]) Comment: The ADA recommends reporting an estimated Average Glucose (eAG) with all Hemoglobin A1c results using the equation derived from a study of 507 normal and diabetic adults. ??Minority populations were underrepresented and children were not included. ?? (Diabetes Care 31:9046-8033, 2008). ??The eAG is not equivalent to a fasting glucose. Testing performed by: [facility], [address] [place] [address]., [id number] Blood 04/01/2024 12:0 1 PM CDT 04/01/2024 6:20 PM CDT us Teo Joyner MD LAB BLOOD ORDERABLES Fi nal Result Performing Organization Address [facility] Co de Phone Number EMELY CAPPS ([place]) 1 [facility] [place] [address] * Lipid panel (04/01/2024 12:01 PM CDT) [facility] Cholesterol 165 30 - 199 mg/dL Comment: [...] revised on 2018. Testing performed by: [facility], [address] [place] [address]., [id number] Triglycerides 124 <=149 mg/dL EMELY CAPPS (ESTHER) [...] revised on 2018. Testing performed by: [facility], [address] [place] [address]., [id number] HDL 92 >=40 mg/dL EMLEY Yancey (ESTHER) Comment: Interpretive Data Ages < [...] revised on 2018. Testing performed by: [facility], [address] [place] [address]., [address] LDL, calculated 52 <=129 mg/dL EMELY CAPPS [...] last revised on 2024. Testing performed by: [facility], [address] [place] [address]., [address] Non-HDL Cholesterol 73 mg/dL EMELY CAPPS (ESTHER) [...] revised on 2018. Testing performed by: [facility], [address] [place] [address]., [id number] Chol/HDL ratio 2 FRANSICOMICHAEL Demetrio CAPPS ([place]) Comment:Testing performed by : [facility], [address] [place] [address]., [address] Blood 04/01/2024 12:0 1 PM CDT 04/01/2024 6:20 PM CDT Narrative EMELY GÉNESIS ([place]) - 04/01/2024 7:02 PM CDT Has the patient been fasting for 8 hours or more?->Yes us Teo Joyner MD LAB BLOOD ORDERABLES Fi nal Result EMELY CAPPS ([place]) 1 [facility] Department [place] [address] * Diagnostic Mammogram Bilateral W Mike (09/06/2023 12:30 PM POSTAL CARRIER) Anatomical Region Laterality Modality Breast Bilateral Mammography 09/06/2023 2:10 PM POSTAL CARRIER Impressions 09/06/2023 2:10 PM POSTAL CARRIER 1. ??The marker calcifications of concern in [...] signed by: TERI Montgomery 09/06/2023 2:10 PM POSTAL CARRIER EXAMINATION: DIAGNOSTIC MAMMOGRAM BILATERAL W MIKE ORDERING [...] architectural distortion. ??Given the lack of interval bladder changer the past 2 years, these are now considered benign. ??There is no new suspicious finding in either breast. us Teo Joyner MD IMG MAMMO PROCEDURES Fi nal Result * COLONOSCOPY (10/17/2021 9:52 AM CDT) Anatomical Region Laterality Modality Other Narrative Procedure Note Kartik Fowler MD - 10/17/2021 9:52 AM CDT [facility] Patient Name: Jimmy Xavier Procedure Date: 10/17/2021 9:52 AM Date of : 1970 Admit Type: Outpatient Age: 51 Gender: Female Attending MD: Kartik Fowler M.D. Room: [facility] ENDOSCOPY ROOM 2 Note Status: Finalized Patient [...] scope was passed under direct vision. TheColonoscope [id number] was introduced through the anus and advanced [...] 9:52 AM Procedure Code(s): --- Professional --- 92783, Colonoscopy, flexible; with removal of tumor(s), polyp(s), or other lesion(s) by snare technique Diagnosis Code(s): --- Professional --- D12.3, Benign neoplasm of transverse colon (hepatic flexure orsplenic flexure) Z98.0, Intestinal bypass and anastomosis status K64.9, Unspecified hemorrhoids Z86.010, Personal history of colonic polyps CPT copyright 2020 [employer]. All rights reserved. The codes documented in this report are preliminary and upon nailer operator reviewmay be revised to meet current compliance requirements. Recognized by the [employer] for promoting quality in endoscopy Kartik Fowler MD ENDOSCOPY PROCEDURES Final Re sult * ThinPrep Pap (04/21/2021) 04/21/2021 Historical Provider LAB PATHOLOGY ORDERABLES Final Result * DIABETES FOOT EXAM (08/01/2018) Diabetic Foot Exam Normal Historical Provider HEALTH MAINTENANCE Final Result * Hepatitis panel, acute (06/22/2018 4:48 AM POSTAL CARRIER) Hep A IgM Negative Negative [facility] (ESTHER) Comment:Testing performed by : [facility], [address] [place] [address]., [id number] Hep B core IgM Negative Negative [facility]NE R [facility] (ESTHER) Comment:Testing performed by : [facility], [address] [place] [address]., [id number] Hep C Ab Negative Negative [facility] (ESTHER) Comment:Testing performed by : [facility], [address] [place] [address]., [id number] HepBsAg Negative Negative [facility] (ESTHER) Comment:Testing performed by : [facility], [address] [place] [address], [id number] Blood specimen (specimen) 06/22/2018 4:48 AM POSTAL CARRIER 06/23/2018 1:43 PM POSTAL CARRIER Narrative [facility] (ESTHER) - 06/23/2018 3:11 PM POSTAL CARRIER Anayeli Mcdaniel MD LAB MICROBIOLOGY - GENERAL ORDERABLES Final Result [facility] (ESTHER) [facility] [place] [address] from Last 3 Months or Most Recently Relevant to Health Maintenance Insurance MEDICARE [facility] MEDICARE MEDICARE Advance Directives For more information, please contact: [phone] * Full Code (Latest Code Status on [...] 4:06 AM 06/26/2018 12:49 PM Care Teams Debate Director Relationship Specialty Start Date End Date Teo Joyner MD PCP - General 10/05/16
[2024-08-06 04:09] LABS: Lactic Acid Reflex 1.3 mmol/L (0.4-2.0)
[2024-08-06 04:16] LABS: Alanine Aminotransferase 61 U/L (14-59); Albumin Level 3.7 g/dL (3.4-5.0); Alkaline Phosphatase 101 U/L (46-116); Anion Gap 10 mmol/L (4-12); Aspartate Amino Transferase 84 U/L (15-37); Bilirubin,Total 0.2 mg/dL (0.00-1.00); Blood Urea Nitrogen 10 mg/dL (7-18); Carbon Dioxide 26 mmol/L (21-32); Chloride 100 mmol/L (98-108); Estimated Glomerular Filt Rate > 60; Glucose 159 mg/dL (70-99); NT Pro B Type Natriuretic Pept 185 pg/mL (0-125); Osmolality Calculated 284 mOsm/kg (285-295); Potassium 3.7 mmol/L (3.5-5.1); Sodium 136 mmol/L (136-145); Total Protein 7.1 g/dL (6.4-8.2); Troponin I 19.5 ng/L (0.00-60.4)
[2024-08-06 04:19] LABS: Basophils Absolute Auto 0.07 K/mm3 (0.00-0.10); Basophils Percent Auto 0.9 % (0.0-1.0); Eosinophils Absolute Auto 0.01 K/mm3 (0.02-0.50); Eosinophils Percent Auto 0.1 % (1.0-6.0); Hematocrit 42.7 % (35.0-49.0); Hemoglobin 14.5 g/dL (12.0-15.0); Immature Granulocyte Absolute 0.02 K/mm3 (0.00-0.00); Immature Granulocyte Percent A 0.3 % (0.0-0.0); Lymphocytes Absolute Auto 1.13 K/mm3 (1.10-4.50); Lymphocytes Percent Auto 15.1 % (18.0-42.0); Mean Corpuscular Hemoglobin 35.6 pg (27.0-31.0); Mean Corpuscular Volume 104.9 fL (78.0-102.0); Mean Platelet Volume 9.4 fl (9.2-11.8); Monocytes Absolute Auto 0.84 K/mm3 (0.10-0.90); Monocytes Percent Auto 11.2 % (2.0-11.0); Neutrophils Absolute Auto 5.41 K/mm3 (1.70-7.20); Neutrophils Percent Auto 72.4 % (50.0-70.0); Platelet Count Result 177 K/mm3 (150-420); Red Blood Count 4.07 M/mm3 (4.20-5.40); Red Cell Distribution Width 11.2 % (11.6-14.4); White Blood Count 7.5 K/mm3 (4.8-10.8)
[2024-08-06 04:20] LABS: Add Urine Microscopic? NO; Appearance Urine Clear (Clear); Bilirubin Urine Negative (Negative); Blood Urine Negative (Negative); Color Urine Light Yellow (Yellow); Glucose Urine UA Trace (Negative); Ketones Urine Negative (Negative); Leukocyte Esterase Ur Negative LEU/UL (Negative); Nitrate Urine Negative (Negative); Protein Urine Negative (Negative); Specific Grav Ur >= 1.030 (1.010-1.020); Urobilinogen Urine 0.2 mg/dL (0.2-1.0); pH Urine 5.5 (5.0-8.0)
[2024-08-06 04:30] LABS: Influenza A QL RT-PCR Positive (Negative); Influenza B QL RT-PCR Negative (Negative); RSV RNA, RT-PCR Negative (Negative); SARS-CoV-2 RNA PCR Negative (Negative)
[2024-08-06 04:32] LABS: Amphetamine Screen Urine Negative (Negative); Barbiturate Screen Urine Negative (Negative); Benzodiazepines Screen Urine Negative (Negative); Cannabinoid Screen Urine Negative (Negative); Cocaine Screen Urine Negative (Negative); Methadone Screen Urine Negative (Negative); Opiate Screen Urine Positive (Negative); Phencyclidine Screen Urine Negative (Negative)
--- NOTE | 2024-08-06 04:59 | PC.NURSE ---
Dr. Romano at bedside for patient update including results and plan of care.
== END 2024-08-06 05:40 | disposition home or self-care (01) ==
PROVIDERS: Emergency Provider Internal Medicine Critical Care Medicine
DX: J10.1 Influenza due to other identified influenza virus with other respiratory manifestations (principal); J44.1 Chronic obstructive pulmonary disease with (acute) exacerbation; K70.10 Alcoholic hepatitis without ascites; I10 Essential (primary) hypertension; E11.9 Type 2 diabetes mellitus without complications; E03.9 Hypothyroidism, unspecified; F32.A Depression, unspecified; Z79.4 Long term (current) use of insulin; Z79.51 Long term (current) use of inhaled steroids; Z79.891 Long term (current) use of opiate analgesic; Z20.822 Contact with and (suspected) exposure to COVID-19
CPT/HCPCS: 36415; 71045; 80053; 80307; 81003; 83605; 83880; 84484; 85025; 87637; 93005; 96365; 96372; 96375; 99284; J0456; J1885; J2919

== ENCOUNTER 2024-10-30 21:12 | Emergency (ER) | payer MEDICARE, SELFPAY ==
[2024-10-30] VITALS (24 sets, daily range): BP systolic 100–126; BP diastolic 61–80; PULSE 68–103; RESP 12–22; TEMP 36.2; O2SAT 90–99
--- NOTE | ~2024-10-30 | XR_ITS ---
XR chest 1V portable Ordering provider: Denis Sharif MD History: 54 years Female with . SHORTNESS OF BREATH . Comparison: August 06, 2024 FINDINGS: MEDIASTINUM: The cardiac silhouette is not enlarged. LUNGS: No infiltrates, effusions or pneumothorax. OTHER: No free air under the diaphragm. Healing fracture in the left seventh rib. IMPRESSION: No acute cardiopulmonary pathology. Reviewed, dictated and finalized at location A.
--- OUTSIDE RECORDS SUMMARY | 2024-10-30 21:14 | XMS_ITS | Clinical Summary ---
Author Organization [facility] Address [address] [place] [id number] Care Team Providers Care Claims Attorney Name Role Phone Teo Joyner MD Primary Care Provider Allergies Active Allergy Reactions Criticality Noted Date Comments Sumatriptan Anaphylaxis,Other (S ee comments) High Reaction: Diff breathing, , Reaction: throat swelling, can't breathe, , Reaction: throat swelling, can't breathe, Medications losartan (COZAAR) 100 mg tablet Take 1 [...] 2 diabetes mellitus without complication, unspecified whether intermodal customer service insulin use (HCC) USE 1 DAILY 50 [...] by mouth daily 100 tablet 3 04/07/20 24 Active pen needle, diabetic (TRUEplus Pen Needle) 31 gauge x 5/16 needle Inject 1 pen needle under the skin daily 100 each 3 04/07/20 24 Active LORazepam (ATIVAN) 0.5 mg tablet Take 1 tablet (0.5 mg total) by mouth 2 (two) times a day as needed for anxiety Do not take w/ hydrocodone 10 tablet 04/07/20 24 Active ipratropium-albut Scotty (DUO-NEB) 0.5-2.5 mg/3 mL nebulizer solutionIndicatio ns:Chronic Obstructive Pulmonary Disease with Bronchospasms Take 3 mL by nebulization 4 (four) times a day as needed for wheezing or shortness of breath Dx of COPD J44.9 120 mL 11 10/02/19 25 026 Active pancrelipase (Pancreaze) 16,800 units of lipase capsuleIndication s:exocrine pancreatic insufficiency Take 2 capsules by mouth 3 (three) times a day with meals 180 capsule 11 10/09/19 25 Active HYDROcodone-aceta minophen (NORCO) 10-325 mg per tabletIndications :Pain Take 1 tablet by mouth every 6 (six) hours as needed for pain 100 tablet 10/13/19 25 025 Active ipratropium-albut Scotty (DUO-NEB) 0.5-2.5 mg/3 mL nebulizer solutionIndicatio ns:Chronic Obstructive Pulmonary Disease with Bronchospasms Take 3 mL by nebulization 4 (four) times a day as needed for wheezing or shortness of breath Dx of COPD J44.9 360 mL 11 05/29/20 21 025 Discontin ued(Reord er) HYDROcodone-aceta minophen (NORCO) 10-325 mg per tabletIndications :Pain Take 1 tablet by mouth every 6 (six) hours as needed for pain 100 tablet 09/04/19 25 025 Discontin ued(Reord er) Active Problems Problem Noted Date Diagnosed Date Encounter for screening colonoscopy 09/28/2024 Lumbar spine pain 03/24/2022 Medicare annual wellness visit, subsequent 03/23 History of 2019 novel coronavirus disease (COVID -19) 03/23/2022 Tachycardia 05/25/2021 Acute exacerbation of chroni c obstructive pulmonary disease (COPD) 05/24/2021 Assessment & Plan (06/07/2021 10:38 AM NEWS CONTENT SPECIALIST): Recently hospitalized Symptoms improved. See hospitalization assessment above Menopause 03/29/2021 Positive colorectal cancer s creening using DNA-based stool test 03/29/2021 Overview (03/29/2021): Added automatically from request for surgery [id number] History of colonic polyps 03/29/2021 Overview (03/29/2021): Added automatically from request for surgery [id number] Medicare annual wellness visit, subsequent 02/03 Epistaxis 10/29/2019 Assessment & Plan (10/29/2019 10:30 AM CDT): Augmentin with a meal twice daily for 7 days Nasal saline spray (Simply saline, Little Remedies, Ashe, Roy) 2 second sprays or 2 squeezes into [...] Nasal saline spray (Simply saline, Little Remedies, Ashe, Roy) 2 second sprays or 2 squeezes into each nostril while looking down over the sink, do not need to sniff in 3-4 times per day Humidifier next to bed Hypertension associated with diabetes 09/16/2019 Moderate episode of recurrent major depressive d isorder 09/16/2019 Type 2 diabetes mellitus wit hout complication, with long-term current use of insulin ([facility]) 09/15/2019 Body mass index (BMI) [...] alcoholism Assessment & Plan (07/10/2017 12:47 PM NEWS CONTENT SPECIALIST): Acute on chronic pancreatitis. Keep npo until [...] 12/19/2022 Assessment & Plan (05/31/2021 2:49 PM NEWS CONTENT SPECIALIST): Hospitalized for acute copd exacerbation Med rec reviewed Completed cefdinir and prednisone HRS kit at home F/u prn Colon polyp 04/19/2021 05/18/2021 Overview (04/19/2021): Added automatically from request for surgery [id number] Acute recurrent maxillary sinusitis 10/29/2019 12/19/2022 Assessment & Plan (10/29/2019 2:26 PM CDT): Augmentin with a meal twice daily for 7 days Nasal saline spray (Simply saline, Little Remedies, Ashe, Roy) 2 second sprays or 2 squeezes into each nostril while looking down over the sink, do not need to sniff in 3-4 times per day Humidifier next to bed Alcohol-induced acute pancre atitis without infection or necrosis 07/10/2017 03/17/2019 Assessment & Plan (07/10/2017 12:37 PM NEWS CONTENT SPECIALIST): Recurrent, most likely again induced by alcohol. Supportive care Advance diet slowly when symptoms improve Nausea & vomiting 07/10/2017 01/28/2018 Assessment & Plan (07/10/2017 12:37 PM NEWS CONTENT SPECIALIST): Antiemetics as needed Flu-like symptoms 07/10/2017 03/17/2019 Assessment & Plan (07/10/2017 12:46 PM NEWS CONTENT SPECIALIST): Influenza negative but with joint pain, generalized pain, cough besides adbominal pain Acute bronchitis 07/08/2017 07/31/2017 Bronchospasm 07/08/2017 07/31/2017 Acute maxillary sinusitis 07/08/2017 Subcutaneous emphysema 09/15/201507/31 Overview (10/11/2016): Subcutaneous emphysema Impaired fasting glucose 08/02/2015 Overview (10/11/2016): Impaired fasting glycaemia Migraine 01/19/2014 09/15/2019 Overview (10/11/2016): MIGRNE UNSP WO NTRC MGRN Irritable bowel syndrome 12/02/2009 Overview (10/11/2016): Irritable bowel syndrome Encounters Date Type Department Care Team Description 10/26/2024 Telephone [facility] Primary Care at [address] [phone] Teo Joyner MD Prior Auth (Medication Pancrelipase ) 10/12/2024 Orders Only [facility] Primary Care at [address] [phone] Teo Joyner MD 10/12/2024 Telephone [facility] Primary Care at [address] [phone] Teo Joyner MD Med Refill 10/08/2024 11:30 AM CDT Office Visit [facility] Primary Care at [address] [phone] Teo Joyner MD Alcohol-induced chronic pancreatitis (CMS/HCC) (HCC) (Primary Dx); BMI 22.0-22.9, adult; Alcoholic liver disease (HCC); Moderate persistent asthma without complication; Hypertension associated with diabetes (HCC); Acquired hypothyroidism; Lumbar spine pain; Tobacco use disorder; Moderate episode of recurrent major depressive disorder (HCC) 10/08/2024 Orders Only [facility] Medical [facility] at [place] [address] [facility] [address] [place] [phone] Teo Joyner MD Visit for screening mammogram (Primary Dx) 09/30/2024 3:00 PM CDT Lab [facility] [address] [place] [address] Type 2 diabetes mellitus without complication, with long-term current use of insulin (HCC) 09/28/2024 Telephone [facility] at [place] [address] [facility] [address] [place] [address] Tae Gutierrez DO from Last 3 Months Immunizations Immunization Administration Dates Next Due Influenza, Quadrivalent, Vanessa [...] Medical History Date Comments 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 Never 05/26/2021 Do you belong to any clubs o r organizations such as episcopalian groups, unions, fraternal or athletic groups, or [...] points, staff should administer the PHQ-9) 0 10/08/2024 Hunger Vital Sign Answer Date Recorded Within [...] place to sleep or slept in a half-way (including now)? No 05/29/2021 Comments No Sex and Gender Information Value Date Recorded Sex Assigned at Not on file Legal Sex Female 8:43 AM NEWS CONTENT SPECIALIST Gender Identity Not on file Sexual Orientation Not on file Obstetrics History Para Term AB IAB SAB Ectopic Multiple Livin g Live Births 2 2 2 Date Outcome GA Total Labor Labor/2nd/3rd Weight Sex Type Anes PTL Clarisa A1 A5 Name Clin Term Term Last Filed Vital Signs Vital Sign Reading Time Taken Comments Blood Pressure 162/90 10/08/2024 11:20 AM CDT Pulse 91 10/08/2024 11:20 AM CDT Temperature 36.6 C (97.8 F) 10/08/2024 11:20 AM CDT Respiratory Rate 16 10/08/2024 11:20 AM CDT Oxygen Saturation 98% 10/08/2024 11:20 AM CDT Inhaled Oxygen Concentration - - Weight 55.8 kg (123 lb) 10/08/2024 11:20 AM CDT Height 157.5 cm (5' 2 ) 10/08/2024 11:20 AM CDT Body Mass Index 22.5 10/08/2024 11:20 AM CDT Plan of Treatment Upcoming Encounters Date Type Department Care Team (Late st Contact Info) Description 01/11/2025 9:00 AM CDT Hospital Encounter [facility] [address] [place] [address] Tae Gutierrez, DO [address] [place] [address] [address] [place] [address] 01/11/2025 9:00 AM CDT - 01/11/2025 9:30 AM CDT Surgery [facility] [address] [place] [address] Tae Gutierrez, DO [address] [place] [address] [place] [address] COLONOSCOPY Scheduled Procedures Name Priority Associated Diagnoses Date/Ti me COLONOSCOPY History of colonic polyps Encounter for screening colonoscopy 01/11/2025 9:00 AM CDT Health Maintenance Due Date Last Done Comments Osteoporosis Screening-Bone Density Scan 1970 Dilated Eye Exam 1970 Hepatitis B Screening 10/03/1987 Pneumococcal vaccine <65 (2 of 2 - PPSV23) 06/25/2018 04/30/2018 Zoster Vaccine (1 of 2) 10/03/2019 Cervical Cancer Screening 04/21/20222020, 04/20/2021, 09/15/2015 Covid-19 Vaccine (2023-2 5 season) 2024 06/19/2022, 09/19/2021, 01/31/2021, Additional history exists Breast Cancer Screening-Mammogram 09/05/2024 09/06/2023, 10/13/2021, 10/18/2015 Albumin Creatinine Ratio, Urine 04/01/2025 04/01/2024, 03/25/2023, 03/16/2022, Additional history exists Hemoglobin A1C 04/02/2025 09/30/2024, 03/09, 09/25/2023, Additional history exists Foot Exam 04/07/2025 04/07/2024, 03/09, 09/25/2022, Additional history exists Regular Well Visit/Exam 18-64 04/07/2025, 04/02/2023, 03/23/2022, Additional history exists Lipid Panel 09/30/2025 09/30/2024, 03/09, 09/25/2023, Additional history exists eGFR 09/30/2025 09/30/2024, 03/09, 09/25/2023, Additional history exists Depression Screening 10/08/2025 10/08/2024, 04/07/2024, 10/01/2023, Additional history exists DTaP/Tdap/Td Vaccine (2 - [...] Care Management On track( 018 1:06 PM NEWS CONTENT SPECIALIST) Kori Maguire, RN Note: Problem: Knowledge deficit - Diabetes Interventions: - Provide educational materials specific to patient needs. - Follow up within 1-2 weeks of mailing to review materials and ensure patient understands information provided. Procedures Procedure Name Priority Date/Time Associated Diagnosis Comments EGFR Routine 09/30/2024 3:03 PM CDT Type 2 diabetes mellitus without complication, with long-term current use of insulin (HCC) HEMOGLOBIN A1C Routine 09/30/2024 3:03 PM CDT Type 2 diabetes mellitus without complication, with long-term current use of insulin (HCC) LIPID PANEL Routine 09/30/2024 3:03 PM CDT Type 2 diabetes mellitus without complication, with long-term current use of insulin (HCC) COMPREHENSIVE METABOLIC PANEL Routine 09/30/2024 3:03 PM CDT Type 2 diabetes mellitus without complication, with long-term current use of insulin (HCC) ALBUMIN CREATININE RATIO, URINE Routine 04/01/2024 12:01 PM CDT Hypertension associated with diabetes (HCC) DIAGNOSTIC MAMMOGRAM BILATERAL W MIKE Schedule Routine, Read Routine (OP Routine) 09/06/2023 12:30 PM NEWS CONTENT SPECIALIST Abnormal mammogram COLONOSCOPY 10/17/2021 9:52 AM CDT THINPREP PAP Routine 04/21/2021 HM DIABETES FOOT EXAM Routine 08/01/2018 HEPATITIS PANEL, ACUTE STAT 06/22/2018 4:48 AM NEWS CONTENT SPECIALIST from Last 3 Months or Most Recently Relevant to Health Maintenance Results * eGFR (09/30/2024 3:03 PM CDT) eGFR >90 >=60 mL/min/1. 73 m2 Comment: Interpretive Data Reference Interval Normal >/= 90 mL/min/1.73m2 Mildly decreased* 60 - 89 mL/min/1.73m2 Mildly to moderately decreased 45 - 59 mL/min/1.73m2 Moderately to severely decreased 30 - 44 mL/min/1.73m2 Severely decreased 15 - 29 mL/min/1.73m2 Kidney Failure < 15 mL/min/1.73m2 *Relative to young adult level Estimated glomerular [...] was last reviewed 2021. Testing performed by: [facility], [address] [place] [address], [place]., [address] Blood 09/30/2024 3:03 PM CDT 09/30/2024 8:41 PM CDT Teo Joyner MD LAB BLOOD ORDERABLES Fi nal Result Performing Organization Address [facility] Co de Phone Number EMELY CAPPS (ESTHER) [address] [place] [address] * (ABNORMAL) Hemoglobin A1c (09/30/2024 3:03 PM CDT) Hgb A1C 6.3(H) 4.0 - 5.6 % Comment:Testing performed by : [facility], [address] [place] [address]., [id number] Estimated Average Glucose 134 mg/dL EMELY CAPPS ([place]) Comment: The ADA recommends reporting an estimated Average Glucose (eAG) with all Hemoglobin A1c results using the equation derived from a study of 507 normal and diabetic adults. Minority populations were underrepresented and children were not included. (Diabetes Care 31:7295-5159, 2008). The eAG is not equivalent to a fasting glucose. Testing performed by: [facility], [address] [place] [address]., [address] Blood 09/30/2024 3:03 PM CDT 09/30/2024 7:06 PM CDT Teo Joyner MD LAB BLOOD ORDERABLES Fi nal Result Performing Organization Address [facility] Co de Phone Number EMELY CAPPS ([place]) [address] [facility] [place] [address] * (ABNORMAL) Lipid panel (09/30/2024 3:03 PM CDT) Cholesterol 221(H) 30 - 199 mg/dL Comment: Interpretive Data Ages < or = 19 years Acceptable: <170 mg/dL Borderline high: 170-199 mg/dL High: >or= 200 mg/dL Ages > or = 20 years Desirable: <200 mg/dL Borderline high: 200-239 mg/dL High: >or= 240 mg/dL Literature References: 1. Expert Panel on Integrated Guidelines for Cardiovascular Health and Risk Reduction in Children and Adolescents. Pediatrics 2011;128:S213 2. NCEP Expert Panel. Circulation 2004;110:227 Current Interpretive Data was last revised on 2018. Testing performed by: [facility], [address] [place] [address]., [address] Triglycerides 267(H) <=149 mg/dL [facility] (ESTHER) Comment: Interpretive Data Ages < or = 9 years Acceptable: <75 mg/dL Borderline high: 75-99 mg/dL High: >or= 100 mg/dL Ages 10 to 20 years Acceptable: <90 mg/dL Borderline high: 90-129 mg/dL High: >or= 130 mg/dL Ages > or = 20 years Desirable: <150 mg/dL Borderline high: 150-199 mg/dL High: 200-499 mg/dL Very high: >or= 499 mg/dL Literature References: 1. Expert Panel on Integrated Guidelines for Cardiovascular Health and Risk Reduction in Children and Adolescents. Pediatrics 2011;128:S213 2. NCEP Expert Panel. Circulation 2004;110:227 Current Interpretive Data was last revised on 2018. Testing performed by: [facility], [address] [place] [address]., [address] HDL 112 >=40 mg/dL [facility] (ESTHER) Comment: Interpretive Data Ages < or = 19 years Acceptable: >45 mg/dL Borderline low: 40-45 mg/dL Low: <40 mg/dL Ages > or = 20 years Desirable: >or= 60 mg/dL Low: <40 mg/dL Literature References: 1. Expert Panel on Integrated Guidelines for Cardiovascular Health and Risk Reduction in Children and Adolescents. Pediatrics 2011;128:S213 2. NCEP Expert Panel. Circulation 2004;110:227 Current Interpretive Data was last revised on 2018. Testing performed by: [facility], [address] [place] [address]., [address] LDL, calculated 68 <=129 mg/dL [facility] (ESTHER) Comment: Interpretive Data Ages < or = 19 years Acceptable: <110 mg/dL Borderline high: 110-129 mg/dL High: >or= 130 mg/dL Ages > or = 20 years Optimal: <100 mg/dL Near optimal: 100-129 mg/dL Borderline high: 130-159 mg/dL High: >160 mg/dL Calculated using the Braydon LDL-C estimating equation. This equation was implemented on 2024. Prior to this date LDL-C was estimated using the Friedewald equation. Literature References: 1. Expert Panel on Integrated Guidelines for Cardiovascular Health and Risk Reduction in Children and Adolescents. Pediatrics 2011;128:S213 2. NCEP Expert Panel. Circulation 2004;110:227 3. Braydon M et al. PIPO Cardiol. 2020 November 05;5(5):540-548. doi: 10.1001/jamacardio.2020.0013 Current Interpretive Data was last revised on 2024. Testing performed by: [address] [address] Non-HDL Cholesterol 109 mg/dL MEELY CAPPS (ESTHER) Comment: Interpretive Data Ages < or = 19 years Acceptable: <120 mg/dL Borderline high: 120-144 mg/dL High: >145 mg/dL Ages > or = 20 years When triglycerides are >200 mg/dL, Non-HDL cholesterol is a secondary target of therapy with treatment goals that are 30 mg/dL greater than the LDL cholesterol target. Literature References: 1. Expert Panel on Integrated Guidelines for Cardiovascular Health and Risk Reduction in Children and Adolescents. Pediatrics 2011;128:S213 2. NCEP Expert Panel. Circulation 2004;110:227 Current Interpretive Data was last revised on 2018. Testing performed by: [address] [address] Chol/HDL ratio 2 ITALIA CAPPS (ESTHER) Comment:Testing performed by : [address] [address] Blood 09/30/2024 3:03 PM CDT 09/30/2024 7:06 PM CDT Narrative EMELY CAPPS (ESTHER) - 09/30/2024 9:01 PM CDT Has the patient been fasting for 8 hours or more?->Yes us Teo Joyner MD LAB BLOOD ORDERABLES Fi nal Result EMELY CAPPS (ESTHER) [address] [facility] Department [place] [address] * (ABNORMAL) Comprehensive metabolic panel (09/30/2024 3:03 PM CDT) Sodium 136 135 - 145 mmol/L Comment:Testing performed by : [facility], [address] [place] [address]., [address] Potassium, pl 3.9 3.3 - 4.9 mmol/L [facility] (ESTHER) Comment:Testing performed by : [facility], [address] [place] [address]., [address] Chloride 101 97 - 110 mmol/L [facility] (ESTHER) Comment:Testing performed by : [facility], [address] [place] [address]., [address] CO2 24 22 - 32 mmol/L [facility] (ESTHER) Comment:Testing performed by : [facility], [address] [place] [address], [address] Anion gap 11 2 - 15 mmol/L [facility] (ESTHER) Comment:Testing performed by : [address] [address] BUN 8 6 - 25 mg/dL [facility] (ESTHER) Comment:Testing performed by : [address] [address] Creatinine 0.55(L) 0.60 - 1.10 mg/dL [facility] (ESTHER) Comment:Testing performed by : [address] [address] Glucose 177 70 - 199 mg/dL [facility] (ESTHER) Comment: Interpretive Data Fasting glucose >/= 126 mg/dl is diagnostic for diabetes. Fasting is defined as no caloric intake for at least 8 hours. Fasting glucose between 100 mg/dl to 125 mg/dl is diagnostic of prediabetes. In a patient with classic symptoms of hyperglycemia or hyperglycemic crisis, a random glucose >/= 200 mg/dl is diagnostic for diabetes. In the absence of unequivocal hyperglycemia, results should be confirmed by repeat testing. The classification and Diagnosis of Diabetes Diabetes Care 2021; 46: S19-S40. Current interpretive data was last revised 2022. Testing performed by: [address] [address] Calcium 9.6 8.5 - 10.3 mg/dL [facility] (ESTHER) Comment:Testing performed by : [facility], [address] [place] [address]., [address] Bilirubin, total 0.4 0.1 - 1.2 mg/dL [facility] (ESTHER) Comment:Testing performed by : [facility], [address] [place] [address]., [address] Protein, pl 7.0 6.5 - 8.5 g/dL [facility] (ESTHER) Comment:Testing performed by : [facility], [address] [place] [address], [address] Albumin 4.2 3.5 - 5.0 g/dL [facility] (ESTHER) Comment:Testing performed by : [facility], [address] [place] [address], [address] Alk phos 107 40 - 130 Units/L [facility] (ESTHER) Comment:Testing performed by : [address], [address] ALT 93(H) 7 - 45 Units/L [facility] (ESTHER) Comment:Testing performed by : [facility], [address] [place] [address], [address] AST 205(H) 10 - 45 Units/L [facility] (ESTHER) Comment:Testing performed by : [address], [address] Blood 09/30/2024 3:03 PM CDT 09/30/2024 7:06 PM CDT Narrative [facility] (EST[facility]) - 09/30/2024 9:01 PM CDT Has the patient fasted?->Yes us Teo Joyner MD LAB BLOOD ORDERABLES Fi nal Result [facility] (ESTHER) 1 [facility] Department [place] [address] * Albumin Creatinine Ratio, Urine (04/01/2024 12:01 PM CDT) Albumin Ur <12.0 mg/L Comment: Interpretive Data No reference range established. Current interpretive data was last revised 2018. Testing performed by: [facility], [address] [place] [address]., [address] Creatinine Ur 33.4 mg/dL EMELY CAPPS (ESTHER) Comment: Interpretive Data No reference range established. Current interpretive data was last revised 2018. Testing performed by: [address] [address] Albumin Creatinine Ratio, Ur See Comment 1 - 29 EMELY CAPPS (ESTHER) Comment: Unable to calculate Testing performed by: [address] [address] Urine 04/01/2024 12:0 1 PM CDT 04/01/2024 6:20 PM CDT us Teo Joyner MD LAB URINE ORDERABLES Fi nal Result EMELY CAPPS (ESTHER) 1 [facility] Department of Laboratories [place] [id number] * Diagnostic Mammogram Bilateral W Mike (09/06/2023 12:30 PM NEWS CONTENT SPECIALIST) Anatomical Region Laterality Modality Breast Bilateral Mammography 09/06/2023 2:10 PM NEWS CONTENT SPECIALIST Impressions 09/06/2023 2:10 PM NEWS CONTENT SPECIALIST 1. The marker calcifications of concern in the right breast have not suspiciously changed over the past 2 years, and are now considered benign. There are no new suspicious findings in either breast. Continued monthly breast self-examination is recommended, and return to annual screening mammography schedule. BI-RADS: 2 - Benign. The patient was notified of the results and recommendations on the time of the examination. Electronically signed by: TERI LITTLE Narrative 09/06/2023 2:10 PM NEWS CONTENT SPECIALIST EXAMINATION: DIAGNOSTIC MAMMOGRAM BILATERAL W MIKE ORDERING HEALTHCARE PROVIDER: TEO JOYNER HISTORY: 52-year-old woman comes in today for follow-up of probably benign findings in the right breast, an routine screening of the left breast.. COMPARISON: Diagnostic mammogram dated 10/31/2021. Screening mammogram dated 10/13/2021. TECHNIQUE: CC and MLO [...] position of the right breast anterior depth. These appear mostly amorphous, and demonstrate no associated mass or architectural distortion. Given the lack of interval pack changer the past 2 years, these are now considered benign. There is no new suspicious finding in either breast. us Teo Joyner MD IMG MAMMO PROCEDURES Fi nal Result * COLONOSCOPY (10/17/2021 9:52 AM CDT) Anatomical Region Laterality Modality Other Narrative Procedure Note Kartik Fowler MD - 10/17/2021 9:52 AM CDT [facility] Patient Name: Jimmy Xavier Procedure Date: 10/17/2021 9:52 AM Date of : 1970 Admit Type: Outpatient Age: 51 Gender: Female Attending MD: Kartik Fowler M.D. Room: [facility] ENDOSCOPY ROOM 2 Note Status: Finalized [...] scope was passed under direct vision. TheColonoscope [id number] was introduced through the anus and advanced [...] 9:52 AM Procedure Code(s): --- Professional --- 04482, Colonoscopy, flexible; with removal of tumor(s), polyp(s), or other lesion(s) by snare technique Diagnosis Code(s): --- Professional --- D12.3, Benign neoplasm of transverse colon (hepatic flexure orsplenic flexure) Z98.0, Intestinal bypass and anastomosis status K64.9, Unspecified hemorrhoids Z86.010, Personal history of colonic polyps CPT copyright 2020 [employer]. All rights reserved. The codes documented in this report are preliminary and upon systems programmer reviewmay be revised to meet current compliance requirements. Recognized by the [employer] for promoting quality in endoscopy Kartik Fowler MD ENDOSCOPY PROCEDURES Final Re sult * ThinPrep Pap (04/21/2021) 04/21/2021 Historical Provider LAB PATHOLOGY ORDERABLES Final Result * DIABETES FOOT EXAM (08/01/2018) Pathologist Count includes the [facility] Diabetic Foot Exam Normal Historical Provider HEALTH MAINTENANCE Final Result * Hepatitis panel, acute (06/22/2018 4:48 AM NEWS CONTENT SPECIALIST) Pathologist [facility] Hep A IgM Negative Negative [facility] (ESTHER) Comment:Testing performed by : [facility], [address] [place] [address]., [address] Hep B core IgM Negative Negative [facility] (ESTHER) Comment:Testing performed by : [facility], [address] [place] [address]., [address] Hep C Ab Negative Negative [facility] (SETHER) Comment:Testing performed by : [facility], [address] [place] [address], [address] HepBsAg Negative Negative [facility] (ESTHER) Comment:Testing performed by : [facility], [address] [place] [address], [address] Blood specimen (specimen) 06/22/2018 4:48 AM NEWS CONTENT SPECIALIST 06/23/2018 1:43 PM NEWS CONTENT SPECIALIST Narrative [facility] (ESTHER) - 06/23/2018 3:11 PM NEWS CONTENT SPECIALIST Anayeli Mcdaniel MD LAB MICROBIOLOGY - GENERAL ORDERABLES Final Result [facility] (ESTHER) 1 [facility] Department [place] [address] from Last 3 Months or Most Recently Relevant to Health Maintenance Insurance MEDICARE [facility] MEDICARE MEDICARE Advance Directives For more information, please contact: [phone] * Full Code (Latest Code Status on [...] 4:06 AM 06/26/2018 12:49 PM Care Teams Claims Attorney Relationship Specialty Start Date End Date Teo Joyner MD PCP - General 10/05/16
--- OUTSIDE RECORDS SUMMARY | 2024-10-30 21:14 | XMS_ITS | Encounter Summary ---
Author Organization [facility] Address [address] [place] [address] Phone Care Team Providers Care Manager Warehouse Name Role Phone Mukesh Rodriguez MD Primary Care Provider Kori Garcia RN Unavailable Neetu Emanuel RN Unavailable [phone] Erwin Estrada RN Unavailable [phone] Encounter Details Date Type Department Care Team (Late st Contact Info) Description 09/20/2017 Orders Only [facility] Provider, MD Meli [address] [place] [id number] Social History Tobacco Use Types Packs/Day Years Used Date Smoking Tobacco: Former Smokeless Tobacco: Never Alcohol Use Standard Drinks/Week Comments Yes 4 (1 standard drink = 0.6 oz pur e alcohol) Comments No Sex and Gender Information Value Date Recorded Sex Assigned at Not on file Legal Sex Female 8:43 AM SALAD COUNTER ATTENDANT Gender Identity Not on file Sexual Orientation Not on file documented as of this encounter Plan of Treatment Upcoming Encounters Date Type Department Care Team (Late st Contact Info) Description 01/11/2025 9:00 AM CDT Hospital Encounter [facility] [address] [place] [address] Tae Gutierrez, DO [address] [facility] [address] [place] [address] 01/11/2025 9:00 AM CDT - 01/11/2025 9:30 AM CDT Surgery [facility] [address] [place] [address] Tae Gutierrez, [address] [place] [address] [address] [place] [address] COLONOSCOPY Scheduled Procedures Name Priority Associated Diagnoses Date/Ti me COLONOSCOPY History of colonic polyps Encounter for screening colonoscopy 01/11/2025 9:00 AM CDT documented as of this encounter Procedures Procedure [...] a clerical error at the physician office. Chino Bennett IP Neck 09/20/17 09/20/2017 09/20/2017 06/24/2018 4:[address] COVID: Suspected 02/16/2021 02/16/2021 02/16/2021 12:04 PM CDT COVID: Suspected 05/24/2021 05/24/2021 05/24/2021 10:17 PM SALAD COUNTER ATTENDANT COVID: Suspected 09/10/2021 09/10/2021 09/10/2021 12:10 PM SALAD COUNTER ATTENDANT COVID: Suspected 09/28/2021 09/28/2021 09/28/2021 2:01 PM CDT COVID: Suspected 03/03/2022 03/03/2022 03/03/2022 10:27 AM CDT COVID19 03/03/2022 03/03/2022 03/13/2022 3:05 AM CDT COVID: Recovered Comment:Added based on recent COVID infection. 03/13/2022 03/14/2022 07/11/2022 3:[address] documented as of this encounter Care Teams Manager Warehouse Relationship Specialty Start Date End Date Mukesh Rodriguez MD PCP - General 10/05/16 Kori Garcia RN [address] [place] [address] [address] [place] [address] [employer]ney Construction Supervisor 06/27/18 07/31/18 Neetu Emanuel RN [address] [place] [address] [address] [place] [address] [employer]ney [employer] Supervisor 05/03/21 05/28/21 Erwin Estrada, FRANK [address] [place] [address] [address] [place] [address] [employer]ney [employer] Supervisor 05/29/21 08/02/21 documented as of this encounter
--- OUTSIDE RECORDS SUMMARY | 2024-10-30 21:14 | XMS_ITS | Referral Summary ---
Author Organization [facility] Address [address] [place] [address] Care Team Providers Care Electrical Equipment Technician Name Role Phone Teo Joyner MD Primary Care Provider Encounters Date Type Department Care Team Description 10/26/2024 Telephone [facility] Primary Care at [address] [phone] Teo Joyner MD Prior Auth (Medication Pancrelipase ) 10/12/2024 Orders Only [facility] Primary Care at [address] [phone] Teo Joyner MD 10/12/2024 Telephone [facility] Primary Care at [address] [phone] Teo Joyner MD Med Refill 10/08/2024 Orders Only [facility] Medical [facility] Primary Care at [address] [phone] Teo Joyner MD Visit for screening mammogram (Primary Dx) 10/08/2024 11:30 AM CDT Office Visit [facility] Primary Care at [address] [phone] Teo Joyner MD Alcohol-induced chronic pancreatitis (CMS/HCC) (HCC) (Primary Dx); BMI 22.0-22.9, adult; Alcoholic liver disease (HCC); Moderate persistent asthma without complication; Hypertension associated with diabetes (HCC); Acquired hypothyroidism; Lumbar spine pain; Tobacco use disorder; Moderate episode of recurrent major depressive disorder (HCC) 09/30/2024 3:00 PM CDT Lab [facility] [address] [place] [address] Type 2 diabetes mellitus without complication, with long-term current use of insulin ([facility]) 09/28/2024 Telephone [facility] Gastroenterology at [address] [place] [address] Tae Gutierrez, DO from Last 3 Months Allergies Active Allergy Reactions Criticality Noted Date [...] 2 diabetes mellitus without complication, unspecified whether superintendent terminal insulin use (HCC) USE 1 DAILY 50 [...] 05/24/2021 Assessment & Plan (06/07/2021 10:38 AM COAT CHECKER): Recently hospitalized Symptoms improved. See hospitalization assessment above Menopause 03/29/2021 Positive colorectal cancer s creening using DNA-based stool test 03/29/2021 Overview (03/29/2021): Added automatically from request for surgery [id number] History of colonic polyps 03/29/2021 Overview (03/29/2021): Added automatically from request for surgery [id number] Medicare annual wellness visit, subsequent 02/03 Epistaxis 10/29/2019 Assessment & Plan (10/29/2019 10:30 AM CDT): Augmentin with a meal twice daily for 7 days Nasal saline spray (Simply saline, Little Remedies, Langlade, Oden) 2 second sprays or 2 squeezes into [...] Nasal saline spray (Simply saline, Little Remedies, Langlade, Oden) 2 second sprays or 2 squeezes into each nostril while looking down over the sink, do not need to sniff in 3-4 times per day Humidifier next to bed Hypertension associated with diabetes 09/16/2019 Moderate episode of recurrent major depressive d isorder 09/16/2019 Type 2 diabetes mellitus wit hout complication, with long-term current use of insulin (CMS/HCC) 09/15/2019 Body mass index (BMI) of 21.0 [...] alcoholism Assessment & Plan (07/10/2017 12:47 PM COAT CHECKER): Acute on chronic pancreatitis. Keep npo until [...] 12/19/2022 Assessment & Plan (05/31/2021 2:49 PM COAT CHECKER): Hospitalized for acute copd exacerbation Med rec reviewed Completed cefdinir and prednisone HRS kit at home F/u prn Colon polyp 04/19/2021 05/18/2021 Overview (04/19/2021): Added automatically from request for surgery [id number] Acute recurrent maxillary sinusitis 10/29/2019 12/19/2022 Assessment & Plan (10/29/2019 2:26 PM CDT): Augmentin with a meal twice daily for 7 days Nasal saline spray (Simply saline, Little Remedies, Langlade, Oden) 2 second sprays or 2 squeezes into each nostril while looking down over the sink, do not need to sniff in 3-4 times per day Humidifier next to bed Alcohol-induced acute pancre atitis without infection or necrosis 07/10/2017 03/17/2019 Assessment & Plan (07/10/2017 12:37 PM COAT CHECKER): Recurrent, most likely again induced by alcohol. Supportive care Advance diet slowly when symptoms improve Nausea & vomiting 07/10/2017 01/28/2018 Assessment & Plan (07/10/2017 12:37 PM COAT CHECKER): Antiemetics as needed Flu-like symptoms 07/10/2017 03/17/2019 Assessment & Plan (07/10/2017 12:46 PM COAT CHECKER): Influenza negative but with joint pain, generalized pain, cough besides adbominal pain Acute bronchitis 07/08/2017 07/31/2017 Bronchospasm 07/08/2017 07/31/2017 Acute maxillary sinusitis 07/08/2017 Subcutaneous emphysema 09/15/201507/31 Overview (10/11/2016): Subcutaneous emphysema Impaired fasting glucose 08/02/2015 Overview (10/11/2016): Impaired fasting glycaemia Migraine 01/19/2014 09/15/2019 Overview (10/11/2016): MIGRNE UNSP WO NTRC MGRN Irritable bowel syndrome 12/02/2009 Overview (10/11/2016): Irritable bowel syndrome Immunizations Immunization Administration Dates Next Due Influenza, [...] often do you attend chur ch or episcopalian services? Never 05/26/2021 Do you belong to any clubs o r organizations such as rastafarian groups, unions, fraternal or athletic groups, or [...] place to sleep or slept in a retirement (including now)? No 05/29/2021 Comments No Sex and Gender Information Value Date Recorded Sex Assigned at Not on file Legal Sex Female 8:43 AM COAT CHECKER Gender Identity Not on file Sexual Orientation [...] Description 01/11/2025 9:00 AM CDT Hospital Encounter [address] [address] Tae Gutierrez, [address] [place] [address] [address] [place] [address] 01/11/2025 9:00 AM CDT - 01/11/2025 9:30 AM CDT Surgery [address] [address] Tae Gutierrez, DO 4 [facility] [place] [address] COLONOSCOPY Scheduled Procedures Name Priority Associated Diagnoses Date/Ti me COLONOSCOPY History of colonic polyps Encounter for screening colonoscopy 01/11/2025 9:00 AM CDT Goals Goal Patient Goal Type Associated Problems Recent Progress Patient-Stated? Author Diabetes Goal - Patient verbalizes knowledge and ability to manage diabetes ACO Care Management On track( 018 1:06 PM COAT CHECKER) No Kori Garcia, RN Note: Problem: Knowledge [...] Read Routine (OP Routine) 09/06/2023 12:30 PM COAT CHECKER Abnormal mammogram COLONOSCOPY 10/17/2021 9:52 AM CDT THINPREP PAP Routine 04/21/2021 HM DIABETES FOOT EXAM Routine 08/01/2018 HEPATITIS PANEL, ACUTE STAT 06/22/2018 4:48 AM COAT CHECKER from Last 3 Months or Most Recently [...] 2021. Testing performed by: [facility], [address] [place] [address]., [address] Blood 09/30/2024 3:03 PM CDT 09/30/2024 8:41 PM CDT Teo Joyner MD LAB BLOOD ORDERABLES Fi nal Result [facility] (MARENGO) 1 [facility] [place] [address] * (ABNORMAL) Hemoglobin A1c (09/30/2024 3:03 PM CDT) Hgb A1C 6.3(H) 4.0 - 5.6 % Comment:Testing performed by : [address] [address] Estimated Average Glucose 134 mg/dL [facility] ([place]EN[place]) Comment: The ADA recommends reporting an estimated Average Glucose (eAG) with all Hemoglobin A1c results using the equation derived from a study of 507 normal and diabetic adults. Minority populations were underrepresented and children were not included. (Diabetes Care 31:8548-6899, 2008). The eAG is not equivalent to a fasting glucose. Testing performed by: [facility], [address] [place] [address]., [address] Blood 09/30/2024 3:03 PM CDT 09/30/2024 7:06 PM CDT us Teo Joyner MD LAB BLOOD ORDERABLES Fi nal Result EM[facility] (ESTHER) 1 [facility] Department [place] [address] * (ABNORMAL) Lipid panel (09/30/2024 3:03 PM [...] 2018. Testing performed by: [facility], [address] [place] [address], [place]., [address] Triglycerides 267(H) <=149 mg/dL [facility] (ESTHER) Comment: Interpretive [...] 2018. Testing performed by: [facility], [address] [place] [address]., [address] HDL 112 >=40 mg/dL EM[facility] (ESTHER) Comment: Interpretive Data [...] last revised on 2018. Testing performed by: [address] [address] LDL, calculated 68 <=129 mg/dL [facility] (ESTHER) Comment: Interpretive [...] NCEP Expert Panel. Circulation 2004;110:227 3. Braydon Farrar al. PIPO Cardiol. 2020 November 05;5(5):540-548. doi: 10.1001/jamacardio.2020.0013 Current Interpretive Data was last revised on 2024. Testing performed by: [address] [address] Non-HDL Cholesterol 109 mg/dL EM[facility] (ESTHER) Comment: Interpretive Data [...] last revised on 2018. Testing performed by: [address] [address] Chol/HDL ratio 2 ITALIA CAPPS (ESTHER) Comment:Testing performed by : [address] [address] Blood 09/30/2024 3:03 PM CDT 09/30/2024 7:06 PM CDT Narrative EMELY [facility] (ESTHER) - 09/30/2024 9:01 PM CDT Has the patient been fasting for 8 hours or more?->Yes us Teo Joyner MD LAB BLOOD ORDERABLES Fi nal Result EMELY [facility] (ESTHER) 1 [facility] Department [place] [address] * (ABNORMAL) Comprehensive metabolic panel (09/30/2024 3:03 PM CDT) Sodium 136 135 - 145 mmol/L Comment:Testing performed by : [address] [address] Potassium, pl 3.9 3.3 - 4.9 mmol/L EMELY [facility] (ESTHER) Comment:Testing performed by : [address] [address] Chloride 101 97 - 110 mmol/L EM[facility] (ESTHER) Comment:Testing performed by : [address] [address] CO2 24 22 - 32 mmol/L EMELY [facility] (ESTHER) Comment:Testing performed by : [address] [address] Anion gap 11 2 - 15 mmol/L [facility] (ESTHER) Comment:Testing performed by : [address] [address] BUN 8 6 - 25 mg/dL [facility] (ESTHER) Comment:Testing performed by : [address], [address] Creatinine 0.55(L) 0.60 - 1.10 mg/dL [facility] (ESTHER) Comment:Testing performed by : [address], [address] Glucose 177 70 - 199 mg/dL CERNER [...] was last revised 2022. Testing performed by: [address], [address] Calcium 9.6 8.5 - 10.3 mg/dL [facility] (ESTHER) Comment:Testing performed by : [address] [address] Bilirubin, total 0.4 0.1 - 1.2 mg/dL [facility] (ESTHER) Comment:Testing performed by : [address] [address] Protein, pl 7.0 6.5 - 8.5 g/dL [facility] (ESTHER) Comment:Testing performed by : [address], [address] Albumin 4.2 3.5 - 5.0 g/dL [facility] (ESTHER) Comment:Testing performed by : [address], [address] Alk phos 107 40 - 130 Units/L [facility] (ESTHER) Comment:Testing performed by : [facility], [address] [place] [address]., [address] ALT 93(H) 7 - 45 Units/L EMELY [facility] (ESTHER) Comment:Testing performed by : [facility], [address] [place] [address]., [address] AST 205(H) 10 - 45 Units/L EMELY [facility]PS (ESTHER) Comment:Testing performed by : [facility], [address] [place] [address], [address] Blood 09/30/2024 3:03 PM CDT 09/30/2024 7:06 PM CDT Narrative EMELY [facility] (ESTHER) - 09/30/2024 9:01 PM CDT Has the patient fasted?->Yes us Teo Joyner MD LAB BLOOD ORDERABLES Fi nal Result Performing Organization Address [facility]/State/ZIP Co de Phone Number EMELY [facility]PS (ESTHER) 1 [facility] Department [place] [address] * Albumin Creatinine Ratio, Urine (04/01/2024 12:01 PM CDT) Albumin Ur <12.0 mg/L Comment: Interpretive Data No reference range established. Current interpretive data was last revised 2018. Testing performed by: [address], [address] Creatinine Ur 33.4 mg/dL EMELY [facility] (ESTHER) Comment: Interpretive Data No reference range established. Current interpretive data was last revised 2018. Testing performed by: [address], [address] Albumin Creatinine Ratio, Ur See Comment 1 - 29 EMELY [facility] (ESTHER) Comment: Unable to calculate Testing performed by: [address], [address] Urine 04/01/2024 12:0 1 PM CDT 04/01/2024 6:20 PM CDT Teo Joyner MD LAB URINE ORDERABLES Fi nal Result EMELY [facility]PS (ESTHER) 1 [facility] Department of Laboratories [place], [place] [id number] * Diagnostic Mammogram Bilateral W Mike (09/06/2023 12:30 PM COAT CHECKER) Anatomical Region Laterality Modality Breast Bilateral Mammography 09/06/2023 2:10 PM COAT CHECKER Impressions 09/06/2023 2:10 PM COAT CHECKER 1. The marker calcifications of concern in [...] signed by: TERI Montgomery 09/06/2023 2:10 PM COAT CHECKER EXAMINATION: DIAGNOSTIC MAMMOGRAM BILATERAL W MIKE ORDERING [...] architectural distortion. Given the lack of interval change control manager the past 2 years, these are now considered benign. There is no new suspicious finding in either breast. us Teo Joyner MD IMG MAMMO PROCEDURES Fi nal Result * COLONOSCOPY (10/17/2021 9:52 AM CDT) Anatomical Region Laterality Modality Other Narrative Procedure Note Kartik Fowler MD - 10/17/2021 9:52 AM CDT [facility] Patient Name: Jimmy Almeida Procedure Date: 10/17/2021 9:52 AM Date of : 1970 Admit Type: Outpatient Age: 51 Gender: Female Attending MD: Kartik Fowler M.D. Room: [facility] ENDOSCOPY ROOM 2 Note Status: Finalized [...] scope was passed under direct vision. TheColonoscope [id number] was introduced through the anus and advanced [...] 9:52 AM Procedure Code(s): --- Professional --- 59644, Colonoscopy, flexible; with removal of tumor(s), polyp(s), or other lesion(s) by snare technique Diagnosis Code(s): --- Professional --- D12.3, Benign neoplasm of transverse colon (hepatic flexure orsplenic flexure) Z98.0, Intestinal bypass and anastomosis status K64.9, Unspecified hemorrhoids Z86.010, Personal history of colonic polyps CPT copyright 2020 [employer]. All rights reserved. The codes documented in this report are preliminary and upon housekeeping aide reviewmay be revised to meet current compliance requirements. Recognized by the [employer] for promoting quality in endoscopy Kartik Fowler MD ENDOSCOPY PROCEDURES Final Re sult * ThinPrep Pap (04/21/2021) 04/21/2021 Historical Provider LAB PATHOLOGY ORDERABLES Final Result * DIABETES FOOT EXAM (08/01/2018) Pathologist [facility] Diabetic Foot Exam Normal Historical Provider HEALTH MAINTENANCE Final Result * Hepatitis panel, acute (06/22/2018 4:48 AM COAT CHECKER) Pathologist [facility] Hep A IgM Negative Negative [facility] (ESTHER) Comment:Testing performed by : [address] [address] Hep B core IgM Negative Negative [facility] (ESTHER) Comment:Testing performed by : [address] [address] Hep C Ab Negative Negative [facility] (ESTHER) Comment:Testing performed by : [address] [address] HepBsAg Negative Negative [facility] (ESTHER) Comment:Testing performed by : [address], [address] Blood specimen (specimen) 06/22/2018 4:48 AM COAT CHECKER 06/23/2018 1:43 PM COAT CHECKER Narrative [facility] (ESTHER) - 06/23/2018 3:11 PM COAT CHECKER us Anayeli Mcdaniel MD LAB MICROBIOLOGY - GENERAL ORDERABLES Final Result [facility] (ESTHER) 1 [facility] [place] [address] from Last 3 Months or Most Recently Relevant to Health Maintenance Insurance MEDICARE [facility] MEDICARE MEDICARE Advance Directives For more information, please contact: [phone] * Full Code (Latest Code Status on [...] 4:06 AM 06/26/2018 12:49 PM Care Teams Electrical Equipment Technician Relationship Specialty Start Date End Date Teo Joyner MD PCP - General 10/05/16
--- NOTE | 2024-10-30 21:16 | ED.SOB ---
HPI - SOB/Dyspnea General Chief Complaint: Shortness of Breath/Dyspnea Stated Complaint: difficulty breathing Time Seen by Provider: 10/30/24 21:15 Source: patient Mode of arrival: EMS Limitations: intoxication ( patient has taken 5 beers this evening and she is a regular alcohol user with moderate intake) History of Present Illness HPI Narrative: patient is a 54-year-old female with moderate alcoholism and having chest pain and shortness of breath this evening. She smokes tobacco regularly. Patient had impending doom sensation. EMS had her on 4 L of nasal cannula oxygen at 92-94%. MD elicited complaint: shortness of breath and chest pain Pertinent past history: COPD and other ( Diabetes type 2, hypothyroid) Onset (ago): hour(s) (2) Context: anxiety and other ( patient having chest pain and shortness of breath this evening and called EMS; she is drinking this evening) Timing: constant Severity: moderate Exacerbating factors: nothing Relieving factors: nothing Known history of: COPD and diabetes Associated symptoms: chest pain, diaphoresis and lightheadedness Treatment prior to arrival: oxygen Related Data Home oxygen amount: none Home Medications ?Medication ?Instructions ?Recorded ?Confirmed ?Last Taken ?Type albuterol sulfate 90 mcg/actuation 2 puff inhalation BID 03/04/21 03/07/21 Unknown History aerosol inhaler atenolol 50 mg tablet 50 mg PO DAILY 03/04/21 03/07/21 03/07/21 History citalopram 20 mg tablet 20 mg PO DAILY 03/04/21 03/07/21 03/07/21 History furosemide 40 mg tablet 40 mg PO DAILY 03/04/21 03/07/21 03/07/21 History hydrocodone 10 mg-acetaminophen 1 tablet PO BID 03/04/21 03/07/21 03/07/21 History 325 mg tablet ipratropium 0.5 mg-albuterol 3 mg 3 ml inhalation BID 03/04/21 03/07/21 Unknown History (2.5 mg base)/3 mL nebulization soln levothyroxine 75 mcg tablet 75 mcg PO DAILY 03/04/21 03/07/21 03/07/21 History potassium chloride 20 mEq 20 meq PO DAILY 03/04/21 03/07/21 03/07/21 History tablet,extended release(part/cryst) insulin glargine 100 unit/mL (3 25 unit subcut HS 03/07/21 03/07/21 03/06/21 History mL) subcutaneous pen (Basaglar KwikPen U-100 Insulin) Allergies Allergy/AdvReac Type Severity Reaction Status Date / Time sumatriptan (From Imitrex) AdvReac Unknown Verified 10/30/24 21:38 Review of Systems Review of Systems: All systems reviewed & are unremarkable except as noted in HPI and below Constitutional: Constitutional: Reports no additional constitutional complaints Eyes: Eyes: Reports no additional eye complaints ENT: Reports system reviewed and no additional complaints, except as documented Cardiovascular: Cardiovascular: Reports no additional cardiovascular complaints Respiratory: Respiratory: Reports no additional respiratory complaints Gastrointestinal: Gastrointestinal: Reports no additional gastrointestinal complaints Genitourinary: Genitourinary: Reports no additional female genitourinary complaints Musculoskeletal: Musculoskeletal: Reports no additional musculoskeletal complaints Integumentary/Breasts: Skin/Breast: Reports system reviewed and no additional complaints, except as docu Neurologic: Reports system reviewed and no additional complaints, except as documented Psychiatric: Psychiatric: Reports no additional psychiatric complaints Endocrine: Endocrine: Reports no additional endocrine complaints Hematologic/Lymphatic: Hematologic/Lymphatic: Reports no additional hematologic/lymphatic complaints Allergic/Immunologic: Allergic/Immunologic: Reports no additional allergic/immunologic complaints [facility] Past Medical History Medical History Depression Hypertension COPD (chronic obstructive pulmonary disease) Type 2 diabetes mellitus Hx of migraines Hypothyroidism Surgical History Surgical History History of tonsillectomy Social History Social History Alcohol intake: current Substance use: current Substance use type: opiates Exam Const: General: healthy appearing Nutritional Appearance: well nourished Orientation/consciousness: patient oriented x3 Limitations: other limitations ( Intoxicated with alcohol) HENMT: Head: normal to inspection Ears: external ears normal Face/Nose/Sinus: Normal external nose present Eyes: Conjunctivae: conjunctivae normal Pupils: Equal, round and reactive pupils present EOM: EOMs intact bilaterally Neck: Neck: normal visual inspection Chest: Chest palpation & inspection: normal inspection of the chest Resp: Effort & Inspection: normal respiratory effort, not labored, no retractions, tachypneic and no use of accessory muscles Auscultation: clear to auscultation bilaterally, no crackles, no rales, no rhonchi, no wheezes, breath sounds absent and diminished lung sounds Cardio: Rate: regular rate Rhythm: regular rhythm Heart sounds: no murmurs GI: Inspection: non-distended GI Palp: Yes Soft to palpation and No Tenderness to palpation present (GI) Auscultation: normal bowel sounds : General: Yes bladder normal to palpation Back/Spine/Pelvis: Back: no CVA tenderness Skin: General skin exam: normal color Rashes: no rashes Wounds: no wounds Neuro: General: patient oriented x3 Cranial nerves: Yes Nystagmus not present Speech: normal speech Extrem: General: normal to inspection Psych: Mental Status: mental status grossly normal Affect: normal affect Attitude: cooperative Course Vital Signs Vital signs: Vital Signs Pulse Oximetry 94 10/30/24 21:12 Oxygen Delivery Room Air 10/30/24 21:12 Temperature 36.2 C L 10/30/24 21:25 Pulse Rate 77 10/30/24 23:01 Respiratory Rate 14 10/30/24 23:01 Blood Pressure 114/65 10/30/24 23:00 Pulse Oximetry 90 10/30/24 23:01 Oxygen Delivery Room Air 10/30/24 21:55 MDM - SOB/Dyspnea MDM Narrative Medical decision making narrative: patient is a 54-year-old female with chest pain and shortness of breath while being intoxicated with alcohol this evening. She drinks regularly. We will do a cardiac workup and a pulmonary workup at this time. Lab Data Attestation: I reviewed the patient's lab results. 10/30/24 21:24 10/30/24 21:24 Labs: Lab Results 10/30/24 Range/Units 21:24 WBC 6.3 (4.8-10.8) K/mm3 RBC 3.80 L (4.20-5.40) M/mm3 Hgb 13.5 (12.0-15.0) g/dL Hct 40.5 (35.0-49.0) % MCV 106.6 H (78.0-102.0) fL MCH 35.5 H (27.0-31.0) pg MCHC 33.3 (32-36) g/dL RDW 12.0 (11.6-14.4) % Plt Count 157 (150-420) K/mm3 MPV 9.2 (9.2-11.8) fl Immature Gran % (Auto) 0.3 H (0.0-0.0) % Neut % (Auto) 33.6 L (50.0-70.0) % Lymph % (Auto) 48.2 H (18.0-42.0) % Dawes % (Auto) 12.5 H (2.0-11.0) % Eos % (Auto) 3.8 (1.0-6.0) % Baso % (Auto) 1.6 H (0.0-1.0) % Lymph # (Auto) 3.05 (1.10-4.50) K/mm3 Dawes # (Auto) 0.79 (0.10-0.90) K/mm3 Eos # (Auto) 0.24 (0.02-0.50) K/mm3 Baso # (Auto) 0.10 (0.00-0.10) K/mm3 Abs Immat Gran (auto) 0.02 H (0.00-0.00) K/mm3 Absolute Neuts (auto) 2.13 (1.70-7.20) K/mm3 Absolute Nucleated RBC 0.00 (0.00-0.00) K/mm3 Nucleated RBC % 0.0 (0-0.0) % D-Dimer 0.45 (0.19-0.50) mg/L Sodium 138 (136-145) mmol/L Potassium 3.7 (3.5-5.1) mmol/L Chloride 102 (98-108) mmol/L Carbon Dioxide 25 (21-32) mmol/L Anion Gap 11 (4-12) mmol/L BUN 13 (7-18) mg/dL Creatinine 0.75 (0.55-1.02) mg/dL Estim Creat Clear Calc 58 ml/min Estimated GFR > 60 (59 - ) Glucose 131 H (70-99) mg/dL Calculated Osmolality 288 (285-295) mOsm/kg Lactic Acid 2.9 H (0.4-2.0) mmol/L Calcium 9.6 (8.5-10.1) mg/dL Total Bilirubin 0.2 (0.00-1.00) mg/dL AST 146 H (15-37) U/L ALT 112 H (14-59) U/L Alkaline Phosphatase 135 H (46-116) U/L Troponin I 6.5 (0.00-60.4) ng/L NT-Pro-B Natriuret Pep 65 (0-125) pg/mL Total Protein 7.0 (6.4-8.2) g/dL Albumin 3.5 (3.4-5.0) g/dL Influenza A (RT-PCR) Negative (Negative) Influenza B (RT-PCR) Negative (Negative) RSV (RT-PCR) Negative (Negative) SARS-CoV-2 RNA (RT-PCR) Negative (Negative) Imaging Data Attestation: I personally reviewed and interpreted this imaging study as follows: Radiologist's impression: chest x-ray is negative for acute process ECG Data EKG #1: Attestation: I personally reviewed and interpreted this ECG as follows: ECG completion date: 10/30/24 ECG completion time: 21:41 EKG Interpretation: normal rate, sinus rhythm, no ectopy, normal QRS, normal QT and NL axis Discharge Plan Discharge Clinical Impression: Acute exacerbation of chronic obstructive pulmonary disease Patient Disposition: Home Condition: Stable Instructions: Antibiotic Form, COPD (Chronic Obstructive Pulmonary Disease) (DC) Patient Language: Omani Prescriptions: New prednisone 20 mg tablet 40 mg PO DAILY 4 Days Qty: 8 0RF azithromycin 250 mg tablet See Rx Instructions .ROUTE .COMPLEX Qty: 6 0RF Rx Instructions: For 250 mg dose pack: take 500 mg today (day 1), then 250 mg for 4 days (days 2-5) ipratropium-albuterol 0.5 mg-3 mg(2.5 mg base)/3 mL solution for nebulization 3 ml inhalation QID PRN (Reason: shortness of breath or wheezing) Qty: 90 0RF No Action furosemide 40 mg tablet 40 mg PO DAILY ipratropium-albuterol 0.5 mg-3 mg(2.5 mg base)/3 mL solution for nebulization 3 ml INHALATION BID hydrocodone-acetaminophen 10-325 mg tablet 1 tablet PO BID levothyroxine 75 mcg tablet 75 mcg PO DAILY citalopram 20 mg tablet 20 mg PO DAILY potassium chloride 20 mEq tablet,ER particles/crystals 20 meq PO DAILY albuterol sulfate 90 mcg/actuation HFA aerosol inhaler 2 puff INHALATION BID atenolol 50 mg tablet 50 mg PO DAILY Jaswantaglmaite Salazar U-100 Insulin 100 unit/mL (3 mL) insulin pen 25 unit SUBCUT HS azithromycin [Zithromax] 250 mg tablet 250 mg PO DAILY 4 Days Qty: 4 0RF Rx Instructions: start on day 2 of therapy prednisone 20 mg tablet 20 mg PO BID Qty: 10 0RF Follow-up/Referrals: UNKNOWN,DOCTOR [Non-Staff] - Time of Disposition: 23:21
--- NOTE | 2024-10-30 21:28 | ECG_ITS ---
Test Date: 2024-10-30 21:20:43 Measurements Intervals [place] Rate: 81 P: 68 MA: 164 QRS: 70 QRSD: 104 T: 70 QT: 386 QTc: 450 Interpretive Statements SINUS RHYTHM DELAYED PRECORDIAL R/S TRANSITION BORDERLINE T WAVE ABNORMALITY- ANTERIOR LEADS BASELINE ARTIFACT- I, II, AVR, AVF, V4-V6 BORDERLINE ECG Compared to ECG 08/06/2024 03:33:00 HEART RATE HAS DECREASED Electronically Signed On 10-31-2024 07:39:18 CDT by Sergio Cheung D.O.
[2024-10-30] MEDS: IPRATROPIUM 0.5 MG/ALBUTEROL SULFATE 2.5 MG AMPUL.NEB 3 ML INHALATION (21:36)
[2024-10-30] MEDS: methylPREDNISolone SOD SUCC 125 MG VIAL IV PUSH (21:36)
[2024-10-30 21:42] LABS: Basophils Percent Auto 1.6 % (0.0-1.0); Eosinophils Absolute Auto 0.24 K/mm3 (0.02-0.50); Eosinophils Percent Auto 3.8 % (1.0-6.0); Hematocrit 40.5 % (35.0-49.0); Hemoglobin 13.5 g/dL (12.0-15.0); Immature Granulocyte Absolute 0.02 K/mm3 (0.00-0.00); Immature Granulocyte Percent A 0.3 % (0.0-0.0); Lymphocytes Absolute Auto 3.05 K/mm3 (1.10-4.50); Lymphocytes Percent Auto 48.2 % (18.0-42.0); Mean Corpuscular HGB Conc 33.3 g/dL (32-36); Mean Corpuscular Hemoglobin 35.5 pg (27.0-31.0); Mean Corpuscular Volume 106.6 fL (78.0-102.0); Mean Platelet Volume 9.2 fl (9.2-11.8); Monocytes Absolute Auto 0.79 K/mm3 (0.10-0.90); Monocytes Percent Auto 12.5 % (2.0-11.0); Neutrophils Absolute Auto 2.13 K/mm3 (1.70-7.20); Neutrophils Percent Auto 33.6 % (50.0-70.0); Platelet Count Result 157 K/mm3 (150-420); White Blood Count 6.3 K/mm3 (4.8-10.8)
--- OUTSIDE RECORDS SUMMARY | 2024-10-30 21:42 | XMS_ITS | Referral Summary ---
Author Organization [facility] Address [address] [place] [id number] Care Team Providers Care Breaker Tender Name Role Phone Teo Joyner MD Primary Care Provider Encounters Date Type Department Care Team Description 10/26/2024 Telephone [facility] Primary Care at [address] [phone] Teo Joyner MD Prior Auth (Medication Pancrelipase ) 10/12/2024 Orders Only [facility] Primary Care at [address] [phone] Teo Joyner MD 10/12/2024 Telephone [facility] Primary Care at [address] [phone] Teo Joyner MD Med Refill 10/08/2024 Orders Only [facility] Medical [facility] Primary Care at [address] [phone] Teo Joyner MD Visit for screening mammogram (Primary Dx) 10/08/2024 11:30 AM CDT Office Visit [facility] Primary Care at [address] [phone] Teo Joyner MD Alcohol-induced chronic pancreatitis (CMS/HCC) (HCC) (Primary Dx); BMI 22.0-22.9, adult; Alcoholic liver disease (HCC); Moderate persistent asthma without complication; Hypertension associated with diabetes (HCC); Acquired hypothyroidism; Lumbar spine pain; Tobacco use disorder; Moderate episode of recurrent major depressive disorder (HCC) 09/30/2024 3:00 PM CDT Lab [facility] [address] [place] [address] Type 2 diabetes mellitus without complication, with long-term current use of insulin ([facility]) 09/28/2024 Telephone [facility] Gastroenterology at [address] [place] [address] Tae Gutierrez, DO from Last [...] 2 diabetes mellitus without complication, 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 See hospitalization assessment above Menopause 03/29/2021 Positive colorectal cancer s creening using DNA-based stool test 03/29/2021 Overview (03/29/2021): Added automatically from request for surgery [id number] History of colonic polyps 03/29/2021 Overview (03/29/2021): Added automatically from request for surgery [id number] Medicare annual wellness visit, subsequent 02/03 Epistaxis 10/29/2019 Assessment & Plan (10/29/2019 10:30 AM CDT): Augmentin with a meal twice daily for 7 days Nasal saline spray (Simply saline, Little Remedies, [place], [place]) 2 second sprays or 2 squeezes into [...] Nasal saline spray (Simply saline, Little Remedies, [place], [place]) 2 second sprays or 2 squeezes into [...] alcoholism Assessment & Plan (07/10/2017 12:47 PM HOOKING MACHINE OPERATOR): Acute on chronic pancreatitis. Keep npo until [...] 12/19/2022 Assessment & Plan (05/31/2021 2:49 PM HOOKING MACHINE OPERATOR): Hospitalized for acute copd exacerbation Med rec reviewed Completed cefdinir and prednisone HRS kit at home F/u prn Colon polyp 04/19/2021 05/18/2021 Overview (04/19/2021): Added automatically from request for surgery [id number] Acute recurrent maxillary sinusitis 10/29/2019 12/19/2022 Assessment & Plan (10/29/2019 2:26 PM CDT): Augmentin with a meal twice daily for 7 days Nasal saline spray (Simply saline, Little Remedies, [place], [place]) 2 second sprays or 2 squeezes into each nostril while looking down over the sink, do not need to sniff in 3-4 times per day Humidifier next to bed Alcohol-induced acute pancre atitis without infection or necrosis 07/10/2017 03/17/2019 Assessment & Plan (07/10/2017 12:37 PM HOOKING MACHINE OPERATOR): Recurrent, most likely again induced by alcohol. Supportive care Advance diet slowly when symptoms improve Nausea & vomiting 07/10/2017 01/28/2018 Assessment & Plan (07/10/2017 12:37 PM HOOKING MACHINE OPERATOR): Antiemetics as needed Flu-like symptoms 07/10/2017 03/17/2019 Assessment & Plan (07/10/2017 12:46 PM HOOKING MACHINE OPERATOR): Influenza negative but with joint pain, generalized [...] often do you attend chur ch or taoism services? Never 05/26/2021 Do you belong to any clubs o r organizations such as episcopal groups, unions, fraternal or athletic groups, or [...] place to sleep or slept in a mcfp (including now)? No 05/29/2021 Comments No Sex and Gender Information Value Date Recorded Sex Assigned at Not on file Legal Sex Female 8:43 AM HOOKING MACHINE OPERATOR Gender Identity Not on file Sexual Orientation [...] Description 01/11/2025 9:00 AM CDT Hospital Encounter [address] [address] Tae Gutierrez, [address] [place] [address] [address] [place] [address] 01/11/2025 9:00 AM CDT - 01/11/2025 9:30 AM CDT Surgery [address] [address] Tae Gutierrez, DO [address] [facility] [place] [address] COLONOSCOPY Scheduled Procedures Name Priority Associated Diagnoses Date/Ti me COLONOSCOPY History of colonic polyps Encounter for screening colonoscopy 01/11/2025 9:00 AM CDT Goals Goal Patient Goal Type Associated Problems Recent Progress Patient-Stated? Author Diabetes Goal - Patient verbalizes knowledge and ability to manage diabetes ACO Care Management On track( 018 1:06 PM HOOKING MACHINE OPERATOR) No Kori Garcia, RN Note: Problem: Knowledge [...] Read Routine (OP Routine) 09/06/2023 12:30 PM HOOKING MACHINE OPERATOR Abnormal mammogram COLONOSCOPY 10/17/2021 9:52 AM CDT THINPREP PAP Routine 04/21/2021 HM DIABETES FOOT EXAM Routine 08/01/2018 HEPATITIS PANEL, ACUTE STAT 06/22/2018 4:48 AM HOOKING MACHINE OPERATOR from Last 3 Months or Most Recently [...] was last reviewed 2021. Testing performed by: [facility], [address] [place] [address]., [address] Blood 09/30/2024 3:03 PM CDT 09/30/2024 8:41 PM CDT Teo Joyner MD LAB BLOOD ORDERABLES Fi nal Result EMELY CAPPS ([place]) 1 [facility] [place] [address] * (ABNORMAL) Hemoglobin A1c (09/30/2024 3:03 PM CDT) Hgb A1C 6.3(H) 4.0 - 5.6 % Comment:Testing performed by : [address] [address] Estimated Average Glucose 134 mg/dL EMELY CAPPS ([place]) Comment: The ADA recommends reporting an estimated Average Glucose (eAG) with all Hemoglobin A1c results using the equation derived from a study of 507 normal and diabetic adults. Minority populations were underrepresented and children were not included. (Diabetes Care 31:3131-6808, 2008). The eAG is not equivalent to a fasting glucose. Testing performed by: [facility], [address] [place] [address]., [address] Blood 09/30/2024 3:03 PM CDT 09/30/2024 7:06 PM CDT us Teo Joyner MD LAB BLOOD ORDERABLES Fi nal Result EMELY CAPPS ([place]) 1 [facility] [place] [address] * (ABNORMAL) Lipid panel (09/30/2024 3:03 PM [...] last revised on 2018. Testing performed by: [facility], [address] [place] [address], [place]., [address] Triglycerides 267(H) <=149 mg/dL EMELY CAPPS ([place]) [...] last revised on 2018. Testing performed by: [facility], [address] [place] [address]., [address] HDL 112 >=40 mg/dL EMELY CAPPS ([place]) [...] last revised on 2018. Testing performed by: [address] [address] LDL, calculated 68 <=129 mg/dL EMELY CAPPS [...] last revised on 2024. Testing performed by: [address] [address] Non-HDL Cholesterol 109 mg/dL EMELY CAPPS ([place]) [...] last revised on 2018. Testing performed by: [address] [address] Chol/HDL ratio 2 ITALIA CAPPS ([place]) Comment:Testing performed by : [address] [address] Blood 09/30/2024 3:03 PM CDT 09/30/2024 7:06 PM CDT Narrative EEMLY CAPPS ([place]) - 09/30/2024 9:01 PM CDT Has the patient been fasting for 8 hours or more?->Yes us Teo Joyner MD LAB BLOOD ORDERABLES Fi nal Result EMELY CAPPS ([place]) 1 [facility] [place] [address] * (ABNORMAL) Comprehensive metabolic panel (09/30/2024 3:03 PM CDT) Sodium 136 135 - 145 mmol/L Comment:Testing performed by : [address] [address] Potassium, pl 3.9 3.3 - 4.9 mmol/L EMELY CAPPS ([place]) Comment:Testing performed by : [address] [address] Chloride 101 97 - 110 mmol/L EMELY CAPPS ([place]) Comment:Testing performed by : [address] [address] CO2 24 22 - 32 mmol/L EMELY CAPPS ([place]) Comment:Testing performed by : [address] [address] Anion gap 11 2 - 15 mmol/L [facility] ([place]) Comment:Testing performed by : [address] [address] BUN 8 6 - 25 mg/dL [facility] ([place]) Comment:Testing performed by : [address], [address] Creatinine 0.55(L) 0.60 - 1.10 mg/dL [facility] ([place]) Comment:Testing performed by : [address], [address] Glucose 177 70 - 199 mg/dL CERNER [...] was last revised 2022. Testing performed by: [address], [address] Calcium 9.6 8.5 - 10.3 mg/dL [facility] ([place]) Comment:Testing performed by : [address] [address] Bilirubin, total 0.4 0.1 - 1.2 mg/dL [facility] ([place]) Comment:Testing performed by : [address] [address] Protein, pl 7.0 6.5 - 8.5 g/dL [facility] ([place]) Comment:Testing performed by : [address], [address] Albumin 4.2 3.5 - 5.0 g/dL [facility] ([place]) Comment:Testing performed by : [address], [address] Alk phos 107 40 - 130 Units/L [facility] ([place]) Comment:Testing performed by : [facility], [address] [place] [address]., [address] ALT 93(H) 7 - 45 Units/L EMELY CAPPS ([place]) Comment:Testing performed by : [facility], [address] [place] [address]., [address] AST 205(H) 10 - 45 Units/L EMELY CAPPS ([place]) Comment:Testing performed by : [facility], [address] [place] [address], [address] Blood 09/30/2024 3:03 PM CDT 09/30/2024 7:06 PM CDT Narrative EMELY CAPPS ([place]) - 09/30/2024 9:01 PM CDT Has the patient fasted?->Yes us Teo Joyner MD LAB BLOOD ORDERABLES Fi nal Result Performing Organization Address [facility]/State/ZIP Co de Phone Number EMELY CAPPS ([place]) 1 [facility] [place] [address] * Albumin Creatinine Ratio, Urine (04/01/2024 12:01 PM CDT) Albumin Ur <12.0 mg/L Comment: Interpretive Data No reference range established. Current interpretive data was last revised 2018. Testing performed by: [address], [address] Creatinine Ur 33.4 mg/dL EMELY CAPPS ([place]) Comment: Interpretive Data No reference range established. Current interpretive data was last revised 2018. Testing performed by: [address], [address] Albumin Creatinine Ratio, Ur See Comment 1 - 29 EMELY CAPPS ([place]) Comment: Unable to calculate Testing performed by: [address], [address] Urine 04/01/2024 12:0 1 PM CDT 04/01/2024 6:20 PM CDT Teo Joyner MD LAB URINE ORDERABLES Fi nal Result EMELY CAPPS ([place]) 1 [facility] Department of Laboratories [place], [place] [id number] * Diagnostic Mammogram Bilateral W Mike (09/06/2023 12:30 PM HOOKING MACHINE OPERATOR) Anatomical Region Laterality Modality Breast Bilateral Mammography 09/06/2023 2:10 PM HOOKING MACHINE OPERATOR Impressions 09/06/2023 2:10 PM HOOKING MACHINE OPERATOR 1. The marker calcifications of concern in [...] signed by: TERI Montgomery 09/06/2023 2:10 PM HOOKING MACHINE OPERATOR EXAMINATION: DIAGNOSTIC MAMMOGRAM BILATERAL W MIKE ORDERING [...] architectural distortion. Given the lack of interval pattern changer the past 2 years, these are now considered benign. There is no new suspicious finding in either breast. us Teo Joyner MD IMG MAMMO PROCEDURES Fi nal Result * COLONOSCOPY (10/17/2021 9:52 AM CDT) Anatomical Region Laterality Modality Other Narrative Procedure Note Kartik Fowler MD - 10/17/2021 9:52 AM CDT Center Patient Name: Jimmy Almeida Procedure Date: 10/17/2021 9:52 AM Date of : 1970 Admit Type: Outpatient Age: 51 Gender: Female Attending MD: Kartik Fowler M.D. Room: [facility] ENDOSCOPY ROOM 2 Note Status: Finalized [...] scope was passed under direct vision. TheColonoscope [id number] was introduced through the anus and advanced [...] 9:52 AM Procedure Code(s): --- Professional --- 36463, Colonoscopy, flexible; with removal of tumor(s), polyp(s), or other lesion(s) by snare technique Diagnosis Code(s): --- Professional --- D12.3, Benign neoplasm of transverse colon (hepatic flexure orsplenic flexure) Z98.0, Intestinal bypass and anastomosis status K64.9, Unspecified hemorrhoids Z86.010, Personal history of colonic polyps CPT copyright 2020 [employer]. All rights reserved. The codes documented in this report are preliminary and upon senior scrum master reviewmay be revised to meet current compliance requirements. Recognized by the [employer] for promoting quality in endoscopy Kartik Fowler MD ENDOSCOPY PROCEDURES Final Re sult * ThinPrep Pap (04/21/2021) 04/21/2021 Historical Provider LAB PATHOLOGY ORDERABLES Final Result * DIABETES FOOT EXAM (08/01/2018) Pathologist [facility] Diabetic Foot Exam Normal Historical Provider HEALTH MAINTENANCE Final Result * Hepatitis panel, acute (06/22/2018 4:48 AM HOOKING MACHINE OPERATOR) Pathologist [facility] Hep A IgM Negative Negative [facility] ([place]) Comment:Testing performed by : [address] [address] Hep B core IgM Negative Negative [facility] ([place]) Comment:Testing performed by : [address] [address] Hep C Ab Negative Negative [facility] ([place]) Comment:Testing performed by : [address] [address] HepBsAg Negative Negative [facility] ([place]) Comment:Testing performed by : [address], [address] Blood specimen (specimen) 06/22/2018 4:48 AM HOOKING MACHINE OPERATOR 06/23/2018 1:43 PM HOOKING MACHINE OPERATOR Narrative [facility] ([place]) - 06/23/2018 3:11 PM HOOKING MACHINE OPERATOR us Anayeli Mcdaniel MD LAB MICROBIOLOGY - GENERAL ORDERABLES Final Result [facility] ([place]) 1 [facility] [place] [address] from Last 3 Months or Most Recently Relevant to Health Maintenance Insurance MEDICARE [facility] MEDICARE MEDICARE Advance Directives For more information, please contact: [phone] * Full Code (Latest Code Status on [...] 4:06 AM 06/26/2018 12:49 PM Care Teams Breaker Tender Relationship Specialty Start Date End Date Teo Joyner MD PCP - General 10/05/16
--- OUTSIDE RECORDS SUMMARY | 2024-10-30 21:42 | XMS_ITS | Clinical Summary ---
Author Organization [facility] Address [address] [place] [phone] Care Team Providers Care .Net Programmer Name Role Phone Teo Joyner MD Primary [...] 2 diabetes mellitus without complication, unspecified whether renewable energy engineer insulin use (HCC) USE 1 DAILY 50 [...] 05/24/2021 Assessment & Plan (06/07/2021 10:38 AM RAILROAD HAND): Recently hospitalized Symptoms improved. See hospitalization assessment above Menopause 03/29/2021 Positive colorectal cancer s creening using DNA-based stool test 03/29/2021 Overview (03/29/2021): Added automatically from request for surgery [id number] History of colonic polyps 03/29/2021 Overview (03/29/2021): Added automatically from request for surgery [id number] Medicare annual wellness visit, subsequent 02/03 Epistaxis 10/29/2019 Assessment & Plan (10/29/2019 10:30 AM CDT): Augmentin with a meal twice daily for 7 days Nasal saline spray (Simply saline, Little Remedies, Imperial, [place]port) 2 second sprays or 2 squeezes into [...] Nasal saline spray (Simply saline, Little Remedies, Imperial, [place]) 2 second sprays or 2 squeezes into each nostril while looking down over the sink, do not need to sniff in 3-4 times per day Humidifier next to bed Hypertension associated with diabetes 09/16/2019 Moderate episode of recurrent major depressive d isorder 09/16/2019 Type 2 diabetes mellitus wit hout complication, with long-term current use of insulin ([facility]) 09/15/2019 Body mass index (BMI) of 21.0 [...] alcoholism Assessment & Plan (07/10/2017 12:47 PM RAILROAD HAND): Acute on chronic pancreatitis. Keep npo until [...] 12/19/2022 Assessment & Plan (05/31/2021 2:49 PM RAILROAD HAND): Hospitalized for acute copd exacerbation Med rec reviewed Completed cefdinir and prednisone HRS kit at home F/u prn Colon polyp 04/19/2021 05/18/2021 Overview (04/19/2021): Added automatically from request for surgery [id number] Acute recurrent maxillary sinusitis 10/29/2019 12/19/2022 Assessment & Plan (10/29/2019 2:26 PM CDT): Augmentin with a meal twice daily for 7 days Nasal saline spray (Simply saline, Little Remedies, Imperial, [place]port) 2 second sprays or 2 squeezes into each nostril while looking down over the sink, do not need to sniff in 3-4 times per day Humidifier next to bed Alcohol-induced acute pancre atitis without infection or necrosis 07/10/2017 03/17/2019 Assessment & Plan (07/10/2017 12:37 PM RAILROAD HAND): Recurrent, most likely again induced by alcohol. Supportive care Advance diet slowly when symptoms improve Nausea & vomiting 07/10/2017 01/28/2018 Assessment & Plan (07/10/2017 12:37 PM RAILROAD HAND): Antiemetics as needed Flu-like symptoms 07/10/2017 03/17/2019 Assessment & Plan (07/10/2017 12:46 PM RAILROAD HAND): Influenza negative but with joint pain, generalized [...] Type Department Care Team Description 10/26/2024 Telephone [facility] Primary Care at [address] [phone] Teo Joyner MD Prior Auth (Medication Pancrelipase ) 10/12/2024 Orders Only [facility] Primary Care at [address] [phone] Teo Joyner MD 10/12/2024 Telephone [facility] Primary Care at [address] [phone] Teo Joyner MD Med Refill 10/08/2024 11:30 AM CDT Office Visit [facility] Primary Care at [address] [phone] Teo Joyner MD Alcohol-induced chronic pancreatitis (CMS/HCC) (HCC) (Primary Dx); BMI 22.0-22.9, adult; Alcoholic liver disease (HCC); Moderate persistent asthma without complication; Hypertension associated with diabetes (HCC); Acquired hypothyroidism; Lumbar spine pain; Tobacco use disorder; Moderate episode of recurrent major depressive disorder (HCC) 10/08/2024 Orders Only [facility] Medical [facility] Primary Care at [place] [address] [facility] [address] [place] [address] Teo Joyner MD Visit for screening mammogram (Primary Dx) 09/30/2024 3:00 PM CDT Lab [facility] [address] [place] [address] Type 2 diabetes mellitus without complication, with long-term current use of insulin (HCC) 09/28/2024 Telephone [facility] at [place] [address] [facility] [address] [place] [address] Tae Gutierrez DO from Last [...] Medical History Date Comments 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 Never 05/26/2021 Do you belong to any clubs o r organizations such as sabianism groups, unions, fraternal or athletic groups, or [...] place to sleep or slept in a chcf (including now)? No 05/29/2021 Comments No Sex and Gender Information Value Date Recorded Sex Assigned at Not on file Legal Sex Female 8:43 AM RAILROAD HAND Gender Identity Not on file Sexual Orientation [...] Description 01/11/2025 9:00 AM CDT Hospital Encounter [facility] 1 [place] [address] Tae Gutierrez, DO [address] [place] [address] [address] [address] 01/11/2025 9:00 AM CDT - 01/11/2025 9:30 AM CDT Surgery [facility] 1 [place] [address] Tae Gutierrez, DO [address] [place] [address] [place] [address] COLONOSCOPY Scheduled Procedures Name Priority Associated Diagnoses [...] Care Management On track( 018 1:06 PM RAILROAD HAND) Kori Maguire, RN Note: Problem: Knowledge deficit [...] Read Routine (OP Routine) 09/06/2023 12:30 PM RAILROAD HAND Abnormal mammogram COLONOSCOPY 10/17/2021 9:52 AM CDT THINPREP PAP Routine 04/21/2021 HM DIABETES FOOT EXAM Routine 08/01/2018 HEPATITIS PANEL, ACUTE STAT 06/22/2018 4:48 AM RAILROAD HAND from Last 3 Months or Most Recently [...] Testing performed by: [facility], [address] [place] [address], [place]., [address] Blood 09/30/2024 3:03 PM CDT 09/30/2024 8:41 PM CDT Teo Joyner MD LAB BLOOD ORDERABLES Fi nal Result Performing Organization Address [facility] Co de Phone Number EMELY CAPPS (ESTHER) 1 [place] [address] * (ABNORMAL) Hemoglobin A1c (09/30/2024 3:03 PM CDT) Hgb A1C 6.3(H) 4.0 - 5.6 % Comment:Testing performed by : [facility], [address] [place] [address]., [address] Estimated Average Glucose 134 mg/dL EMELY CAPPS (SUBLETTE) Comment: The ADA recommends reporting an estimated Average Glucose (eAG) with all Hemoglobin A1c results using the equation derived from a study of 507 normal and diabetic adults. Minority populations were underrepresented and children were not included. (Diabetes Care 31:7280-7429, 2008). The eAG is not equivalent to a fasting glucose. Testing performed by: [facility], [address] [place] [address]., [address] Blood 09/30/2024 3:03 PM CDT 09/30/2024 7:06 PM CDT Teo Joyner MD LAB BLOOD ORDERABLES Fi nal Result Performing Organization Address [facility] Co de Phone Number EMELY CAPPS (SUBLETTE) 1 [facility] [place] [address] * (ABNORMAL) Lipid panel (09/30/2024 3:03 PM [...] Testing performed by: [facility], [address] [place] [address]., [address] Triglycerides 267(H) <=149 mg/dL [facility] (ESTHER) [...] Testing performed by: [facility], [address] [place] [address]., [address] HDL 112 >=40 mg/dL [facility] (ESTHER) [...] Testing performed by: [facility], [address] [place] [address]., [address] LDL, calculated 68 <=129 mg/dL [facility] [...] last revised on 2024. Testing performed by: [address] [address] Non-HDL Cholesterol 109 mg/dL EMELY CAPPS (ESTHER) [...] last revised on 2018. Testing performed by: [address] [address] Chol/HDL ratio 2 ITALIA CAPPS (ESTHER) Comment:Testing performed by : [address] [address] Blood 09/30/2024 3:03 PM CDT 09/30/2024 7:06 PM CDT Narrative EMELY CAPPS (ESTHER) - 09/30/2024 9:01 PM CDT Has the patient been fasting for 8 hours or more?->Yes us Teo Joyner MD LAB BLOOD ORDERABLES Fi nal Result EMELY CAPPS (ESTHER) 1 [facility] Department [place] [address] * (ABNORMAL) Comprehensive metabolic panel (09/30/2024 3:03 PM CDT) Sodium 136 135 - 145 mmol/L Comment:Testing performed by : [facility], [address] [place] [address]., [address] Potassium, pl 3.9 3.3 - 4.9 mmol/L [facility] (ESTHER) Comment:Testing performed by : [facility], [address] [place] [address]., [address] Chloride 101 97 - 110 mmol/L [facility] (ESTHER) Comment:Testing performed by : [facility], [address] [place] [address]., [address] CO2 24 22 - 32 mmol/L [facility] (ESTHER) Comment:Testing performed by : [facility], [address] [place] [address], [address] Anion gap 11 2 - 15 mmol/L [facility] (ESTHER) Comment:Testing performed by : [address] [address] BUN 8 6 - 25 mg/dL [facility] (ESTHER) Comment:Testing performed by : [address] [address] Creatinine 0.55(L) 0.60 - 1.10 mg/dL [facility] (ESTHER) Comment:Testing performed by : [address] [address] Glucose 177 70 - 199 mg/dL CERNER [...] was last revised 2022. Testing performed by: [address] [address] Calcium 9.6 8.5 - 10.3 mg/dL [facility] (ESTHER) Comment:Testing performed by : [facility], [address] [place] [address]., [address] Bilirubin, total 0.4 0.1 - 1.2 mg/dL [facility] (ESTHER) Comment:Testing performed by : [facility], [address] [place] [address]., [address] Protein, pl 7.0 6.5 - 8.5 g/dL [facility] (ESTHER) Comment:Testing performed by : [facility], [address] [place] [address], [address] Albumin 4.2 3.5 - 5.0 g/dL [facility] (ESTHER) Comment:Testing performed by : [facility], [address] [place] [address], [address] Alk phos 107 40 - 130 Units/L [facility] (ESTHER) Comment:Testing performed by : [address], [address] ALT 93(H) 7 - 45 Units/L [facility] (ESTHER) Comment:Testing performed by : [facility], [address] [place] [address], [address] AST 205(H) 10 - 45 Units/L [facility] (ESTHER) Comment:Testing performed by : [address], [address] Blood 09/30/2024 3:03 PM CDT 09/30/2024 7:06 PM CDT Narrative [facility] ([facility]) - 09/30/2024 9:01 PM CDT Has the patient fasted?->Yes us Teo Joyner MD LAB BLOOD ORDERABLES Fi nal Result [facility] (ESTHER) 1 [facility] Department [place] [address] * Albumin Creatinine Ratio, Urine (04/01/2024 12:01 PM CDT) Albumin Ur <12.0 mg/L Comment: Interpretive Data No reference range established. Current interpretive data was last revised 2018. Testing performed by: [facility], [address] [place] [address]., [address] Creatinine Ur 33.4 mg/dL EMELY CAPPS (ESTHER) Comment: Interpretive Data No reference range established. Current interpretive data was last revised 2018. Testing performed by: [address] [address] Albumin Creatinine Ratio, Ur See Comment 1 - 29 EMELY CAPPS (ESTHER) Comment: Unable to calculate Testing performed by: [address] [address] Urine 04/01/2024 12:0 1 PM CDT 04/01/2024 6:20 PM CDT us Teo Joyner MD LAB URINE ORDERABLES Fi nal Result EMELY CAPPS (ESTHER) 1 [facility] Department of Laboratories [place] [id number] * Diagnostic Mammogram Bilateral W Mike (09/06/2023 12:30 PM RAILROAD HAND) Anatomical Region Laterality Modality Breast Bilateral Mammography 09/06/2023 2:10 PM RAILROAD HAND Impressions 09/06/2023 2:10 PM RAILROAD HAND 1. The marker calcifications of concern in [...] by: TERI LITTLE Narrative 09/06/2023 2:10 PM RAILROAD HAND EXAMINATION: DIAGNOSTIC MAMMOGRAM BILATERAL W MIKE ORDERING [...] architectural distortion. Given the lack of interval global climate change analyst the past 2 years, these are now considered benign. There is no new suspicious finding in either breast. us Teo Joyner MD IMG MAMMO PROCEDURES Fi nal Result * COLONOSCOPY (10/17/2021 9:52 AM CDT) Anatomical Region Laterality Modality Other Narrative Procedure Note Kartik Fowler MD - 10/17/2021 9:52 AM CDT [facility] Patient Name: Jimmy Xavier Procedure Date: 10/17/2021 9:52 AM Date of : 1970 Admit Type: Outpatient Age: 51 Gender: Female Attending MD: Kartik Fowler M.D. Room: [facility] ENDOSCOPY ROOM 2 Note Status: Finalized Patient [...] scope was passed under direct vision. TheColonoscope [id number] was introduced through the anus and advanced [...] 9:52 AM Procedure Code(s): --- Professional --- 92606, Colonoscopy, flexible; with removal of tumor(s), polyp(s), or other lesion(s) by snare technique Diagnosis Code(s): --- Professional --- D12.3, Benign neoplasm of transverse colon (hepatic flexure orsplenic flexure) Z98.0, Intestinal bypass and anastomosis status K64.9, Unspecified hemorrhoids Z86.010, Personal history of colonic polyps CPT copyright 2020 [employer]. All rights reserved. The codes documented in this report are preliminary and upon cruise consultant reviewmay be revised to meet current compliance requirements. Recognized by the [employer] for promoting quality in endoscopy Kartik Fowler MD ENDOSCOPY PROCEDURES Final Re sult * ThinPrep Pap (04/21/2021) 04/21/2021 Historical Provider LAB PATHOLOGY ORDERABLES Final Result * DIABETES FOOT EXAM (08/01/2018) Pathologist [facility] Diabetic Foot Exam Normal Historical Provider HEALTH MAINTENANCE Final Result * Hepatitis panel, acute (06/22/2018 4:48 AM RAILROAD HAND) Pathologist [facility] Hep A IgM Negative Negative [facility] (ESTHER) Comment:Testing performed by : [facility], [address] [place] [address]., [address] Hep B core IgM Negative Negative [facility] (ESTHER) Comment:Testing performed by : [facility], [address] [place] [address]., [address] Hep C Ab Negative Negative [facility] (ESTHER) Comment:Testing performed by : [facility], [address] [place] [address], [address] HepBsAg Negative Negative [facility] (ESTHER) Comment:Testing performed by : [facility], [address] [place] [address], [address] Blood specimen (specimen) 06/22/2018 4:48 AM RAILROAD HAND 06/23/2018 1:43 PM RAILROAD HAND Narrative [facility] ([facility]) - 06/23/2018 3:11 PM RAILROAD HAND Anayeli Mcdaniel MD LAB MICROBIOLOGY - GENERAL ORDERABLES Final Result [facility] (ESTHER) 1 [facility] [place] [address] from Last 3 Months or Most Recently Relevant to Health Maintenance Insurance MEDICARE [facility] MEDICARE MEDICARE Advance Directives For more information, please contact: [phone] * Full Code (Latest Code Status on [...] 4:06 AM 06/26/2018 12:49 PM Care Teams .Net Programmer Relationship Specialty Start Date End Date Teo Joyner MD PCP - General 10/05/16
--- OUTSIDE RECORDS SUMMARY | 2024-10-30 21:42 | XMS_ITS | Encounter Summary ---
Author Organization [facility] Address [address] [place] [address] Phone Care Team Providers Care Paint Department Supervisor Name Role Phone Mukesh Rodriguez MD Primary Care Provider Kori Garcia RN Unavailable [phone] Neetu Emanuel RN Unavailable [phone] Erwin Estrada RN Unavailable [phone] Encounter Details Date Type Department Care Team (Late st Contact Info) Description 09/20/2017 Orders Only [facility] Provider, MD Meli [address] [place] [id number] Social History Tobacco Use Types Packs/Day Years Used Date Smoking Tobacco: Former Smokeless Tobacco: Never Alcohol Use Standard Drinks/Week Comments Yes 4 (1 standard drink = 0.6 oz pur e alcohol) Comments No Sex and Gender Information Value Date Recorded Sex Assigned at Not on file Legal 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 Gender Identity Not on file Sexual Orientation Not on file documented as of this encounter Plan of Treatment Upcoming Encounters Date Type Department Care Team (Late st Contact Info) Description 01/11/2025 9:00 AM CDT Hospital Encounter [facility] 1 [place] [address] Tae Gutierrez, DO [address] [facility] [address] [place] [address] 01/11/2025 9:00 AM CDT - 01/11/2025 9:30 AM CDT Surgery [facility] 1 [place] [address] Tae Gutierrez, [address] [place] [address] [address] [address] COLONOSCOPY Scheduled Procedures Name Priority Associated Diagnoses [...] COVID: Suspected 05/24/2021 05/24/2021 05/24/2021 10:17 PM 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 03/13/2022 03/14/2022 07/11/2022 3:[address] documented as of this encounter Care Teams Paint Department Supervisor Relationship Specialty Start Date End Date Mukesh Rodriguez MD PCP - General 10/05/16 Kori Garcia RN [address] [place] [address] [address] [place] [address] Tradeshow Worker 06/27/18 07/31/18 Neetu Emanuel RN [address] [place] [address] [address] [place] [address] Tradeshow Worker 05/03/21 05/28/21 Erwin Estrada, FRANK [address] [place] [address] [address] [place] [address] Tradeshow Worker 05/29/21 08/02/21 documented as of this encounter
[2024-10-30] MEDS: KETOROLAC 30 MG/ML VIAL (*BKC) IV PUSH (21:48)
[2024-10-30 21:49] LABS: D Dimer 0.45 mg/L (0.19-0.50)
[2024-10-30 21:54] LABS: Lactic Acid Reflex 2.9 mmol/L (0.4-2.0)
[2024-10-30 21:58] LABS: Alanine Aminotransferase 112 U/L (14-59); Albumin Level 3.5 g/dL (3.4-5.0); Alkaline Phosphatase 135 U/L (46-116); Anion Gap 11 mmol/L (4-12); Aspartate Amino Transferase 146 U/L (15-37); Bilirubin,Total 0.2 mg/dL (0.00-1.00); Blood Urea Nitrogen 13 mg/dL (7-18); Calcium 9.6 mg/dL (8.5-10.1); Carbon Dioxide 25 mmol/L (21-32); Chloride 102 mmol/L (98-108); Estimated CRCL calculation 58 ml/min; Estimated Glomerular Filt Rate > 60; Glucose 131 mg/dL (70-99); NT Pro B Type Natriuretic Pept 65 pg/mL (0-125); Osmolality Calculated 288 mOsm/kg (285-295); Potassium 3.7 mmol/L (3.5-5.1); Sodium 138 mmol/L (136-145)
[2024-10-30 21:59] LABS: Troponin I 6.5 ng/L (0.00-60.4)
[2024-10-30 22:18] LABS: Influenza A QL RT-PCR Negative (Negative); Influenza B QL RT-PCR Negative (Negative); RSV RNA, RT-PCR Negative (Negative); SARS-CoV-2 RNA PCR Negative (Negative)
[2024-10-30] MEDS: SODIUM CHLORIDE 0.9% IV 1,000 ML 999 ML IV CONT (22:35)
[2024-10-30 23:38] LABS: Reflex Lactic Acid Yes or No Add Lactic
[2024-10-31] VITALS: PULSE 73; RESP 15; O2SAT 91
[2024-10-31 00:02] LABS: Lactic Acid 2.6 mmol/L (0.4-2.0)
[2024-10-31 00:15] VITALS: PULSE 69; RESP 14; O2SAT 91
== END 2024-10-31 00:41 | disposition home or self-care (01) ==
PROVIDERS: Emergency Provider Emergency Medicine; PCP Internal Medicine
DX: J44.1 Chronic obstructive pulmonary disease with (acute) exacerbation (principal); E03.9 Hypothyroidism, unspecified; E11.9 Type 2 diabetes mellitus without complications; I10 Essential (primary) hypertension; J44.9 Chronic obstructive pulmonary disease, unspecified; F17.210 Nicotine dependence, cigarettes, uncomplicated; Z20.822 Contact with and (suspected) exposure to COVID-19
CPT/HCPCS: 36415; 71045; 80053; 83605; 83880; 84484; 85025; 85380; 87637; 93005; 94640; 96361; 96374; 96375; 99284; J1885; J2919; J7030